=== PATIENT | female | born 1990 | race Caucasian/White ===

== ENCOUNTER 2017-05-18 20:11 | Emergency (ER) | payer OTHER, SELFPAY ==
[2017-05-18 20:17] VITALS: BP 130/84; PULSE 103; RESP 18; TEMP 36.9; O2SAT 99; BMI 65.5
[2017-05-18 20:41] LABS: Urine Pregnancy, HCG Qual. Negative (Negative)
--- NOTE | 2017-05-18 21:05 | HMH.EDGENADL ---
ED Disposition Clinical Impression: Epigastric pain Disposition: Home, Self-Care Condition on Discharge: Good Instructions: DI for Abdominal Pain-Adult Additional Instructions: Follow-up with your primary care provider this week. Additional instructions for ABDOMINAL PAIN: See your physician as soon as possible for further evaluation. Return immediately if worsening abdominal pain, vomiting, shortness of breath, fever, vomiting of blood or abdominal distention. Prescriptions: Omeprazole Magnesium [Prilosec Otc 20mg Tab] 20 mg PO DAILY #10 tab - Critical Care Critical Care Time: No Attestation: On 05/18/17, the high probability of a clinically significant, sudden or life threatening deterioration of the following system(s) required my full and direct attention, intervention and personal management. The time I documented below is in addition to time spent performing reported procedures but includes the following listed in this critical care notation. Medical Decision Making Vital Signs: 05/18/17 20:17 Temperature 98.5 F Temperature Source Oral Pulse Rate [Right Radial] 103 H Respiratory Rate 18 Blood Pressure [Right Arm] 130/84 Blood Pressure Mean [Right Arm] 99 Blood Pressure Source [Right Arm] Automatic Cuff Blood Pressure Position [Right Arm] Sitting 02 Sat by Pulse Oximetry 99 Oxygen Delivery Method Room Air - Lab Data Lab Results 05/18/17 20:35: Urine Color Yellow, Urine Appearance Clear, Urine pH 7.0, Ur Specific [place] 1.020, Urine Protein Negative, Urine Glucose (UA) Negative, Urine Ketones Negative, Urine Blood Negative, Urine Nitrate Negative, Urine Bilirubin Negative, Urine Urobilinogen 1.0, Ur Leukocyte Esterase Negative, Urine WBC 3-5, Ur Squamous Epith Cells 10-20 05/18/17 20:35: Urine HCG, Qual Negative 05/18/17 21:00: WBC 9.6, RBC 4.66, Hgb 12.6, Hct 38.5, MCV 82.5, MCH 27.1, MCHC 32.8, RDW 14.0, Plt Count 270, MPV 8.6, Neut % (Auto) 60.8, Lymph % (Auto) 33.0, [place] % (Auto) 5.2, Eos % (Auto) 0.7, Baso % (Auto) 0.2, Neut # (Auto) 5.8, Lymph # (Auto) 3.2, [place] # (Auto) 0.5, Eos # (Auto) 0.1, Baso # (Auto) 0.0 05/18/17 21:00: Sodium 146 H, Potassium 3.8, Chloride 108 H, Carbon Dioxide 30, Anion Gap 11.8, BUN 10, Creatinine 0.70, Estimated Creat Clear 103, Estimated GFR 103, Est GFR ( Amer) 124, Glucose 106, Calcium 8.6, Total Bilirubin 0.3, AST 15, ALT 22, Alkaline Phosphatase 120 H, Total Protein 7.5, Albumin 3.4, Globulin 4.1 H, Albumin/Globulin Ratio 0.8 L, Amylase 31, Lipase 199 Result diagrams: 05/18/17 21:00 05/18/17 21:00 - [place]ma Inquiry Pt receiving controlled substance: No Medical Decision Making Narrative: 9:48 PM: The patient appears very couple. She says the pain is the same, but declines anything for pain. I do not feel CT scan would be beneficial at this time. I think most likely this represents gallbladder disease or potentially peptic ulcer disease. Advised to follow-up with her primary care physician this week. I will empirically start her on Prilosec. I estimate there is LOW risk for ACUTE APPENDICITIS, BOWEL OBSTRUCTION, CHOLECYSTITIS, DIVERTICULITIS, INCARCERATED HERNIA, PANCREATITIS, PERFORATED BOWEL, BOWEL ISCHEMIA, CARDIAC ISCHEMIA, OR GONADAL TORSION thus I consider the discharge disposition reasonable. Also, there is no evidence or peritonitis, sepsis, or toxicity. General Adult HPI - General Chief complaint: Urogenital-Female Stated complaint: Stomach Pain Mode of Arrival: Ambulatory Limitations: No Limitations Description of Symptoms (Recalled from ER Triage Doc. by RN): Pt reports abdominal pain above belly button, and burning with urination. - History of Present Illness HPI narrative: She has had abdominal pain for 1 week. She describes intermittent abdominal pain in the midline above her umbilicus, supraumbilical area, that feels like she is punched in the stomach. Nothing seems to bring it on or relieve it. It usually last 2-3 joe
[2017-05-18 21:08] LABS: Microscopic, Urine URINE MICROSCOPIC (MICROSCOPIC)
[2017-05-18 21:10] LABS: Basophils % 0.2 % (0.1-2.0); Eosinophils # 0.1 K/mm3 (0.0-0.4); Eosinophils % 0.7 % (0.1-12.0); Hematocrit 38.5 % (37.0-47.0); Hemoglobin 12.6 g/dL (12.2-16.2); Lymphocytes # 3.2 K/mm3 (0.7-4.5); Mean Corpuscular HGB Conc 32.8 g/dL (31.8-35.4); Mean Corpuscular Hemoglobin 27.1 pg (27.0-31.2); Mean Corpuscular Volume 82.5 fl (81-99); Mean Platelet Volume 8.6 fl (7.4-10.4); Monocytes # 0.5 K/mm3 (0.1-1.0); Monocytes % 5.2 % (1.7-9.3); Neutrophils # 5.8 K/mm3 (1.8-7.8); Neutrophils % 60.8 % (37.0-80.0); Platelet Count 270 K/mm3 (142-424); Red Blood Count 4.66 M/mm3 (4.20-5.40); White Blood Count 9.6 K/mm3 (4.8-10.8)
[2017-05-18 21:11] LABS: Appearance,Urine CLEAR (Clear); Bilirubin,Urine Negative (Negative); Blood, Urine Negative (Negative); Color,Urine YELLOW (Yellow); Glucose,Urine (UA) Negative (Negative); Ketones,Urine Negative (Negative); Leukocyte Esterase,Urine Negative (Negative); Nitrate,Urine Negative (Negative); Protein,Urine Negative (Negative)
[2017-05-18 21:24] LABS: Alanine Aminotransferase 22 U/L (12-78); Albumin Level 3.4 gm/dL (3.4-5.0); Albumin/Globulin Ratio 0.8 (1.1-1.8); Alkaline Phosphatase 120 U/L (46-116); Amylase 31 U/L (25-125); Anion Gap 11.8 mEq/L (5-15); Aspartate Amino Transferase 15 U/L (15-37); Bilirubin,Total 0.3 mg/dL (0.2-1.0); Blood Urea Nitrogen 10 mg/dL (7-18); Calcium 8.6 mg/dL (8.5-10.1); Carbon Dioxide 30 mmol/L (21.0-32.0); Chloride 108 mmol/L (98-107); Creatinine Clearance Estimated 103 mL/min (0-300); Estimated Glomerular Filt Rate 103 ml/min (>60); GFR (African American) 124 ML/MIN (>60); Globulin 4.1 gm/dl (1.3-3.2); Glucose 106 mg/dL (74-106); Lipase 199 u/L (73-393); Potassium 3.8 mmoL/L (3.5-5.1); Sodium 146 mmol/L (136-145); Total Protein,Serum 7.5 gm/dL (6.4-8.2)
== END 2017-05-18 21:52 | disposition home or self-care (01) ==
PROVIDERS: Emergency Provider Emergency Medicine; Family Provider Internal Medicine Adolescent Medicine
DX: R10.13 Epigastric pain (principal); Z79.899 Other long term (current) drug therapy
CPT/HCPCS: 36415; 80053; 81001; 81025; 82150; 83690; 85025; 99282

== ENCOUNTER → 2017-07-25 09:19 | Outpatient (CLI) | payer BC, OTHER, SELFPAY ==
[2017-07-25 10:14] LABS: Basophils % 0.2 % (0.1-2.0); Eosinophils # 0.1 K/mm3 (0.0-0.4); Eosinophils % 0.9 % (0.1-12.0); Hematocrit 41.2 % (37.0-47.0); Hemoglobin 13.5 g/dL (12.2-16.2); Lymphocytes # 2.2 K/mm3 (0.7-4.5); Lymphocytes % 30.8 K/mm3 (10-50); Mean Corpuscular HGB Conc 32.8 g/dL (31.8-35.4); Mean Corpuscular Hemoglobin 27.8 pg (27.0-31.2); Mean Corpuscular Volume 84.9 fl (81-99); Mean Platelet Volume 9.2 fl (7.4-10.4); Monocytes # 0.3 K/mm3 (0.1-1.0); Monocytes % 4.9 % (1.7-9.3); Neutrophils # 4.5 K/mm3 (1.8-7.8); Neutrophils % 63.2 % (37.0-80.0); Platelet Count 200 K/mm3 (142-424); Red Blood Count 4.85 M/mm3 (4.20-5.40); Red Cell Distribution Width 14.3 % (11.5-17.5)
[2017-07-25 10:16] LABS: Hemoglobin A1C 4.8 % (0.0-7.0)
[2017-07-25 10:19] LABS: Alanine Aminotransferase 23 U/L (12-78); Albumin Level 3.4 gm/dL (3.4-5.0); Albumin/Globulin Ratio 0.9 (1.1-1.8); Alkaline Phosphatase 107 U/L (46-116); Anion Gap 13.6 mEq/L (5-15); Aspartate Amino Transferase 18 U/L (15-37); Bilirubin,Total 0.5 mg/dL (0.2-1.0); Blood Urea Nitrogen 14 mg/dL (7-18); Carbon Dioxide 25 mmol/L (21.0-32.0); Chloride 107 mmol/L (98-107); Chol/HDL Ratio 2.8 (1-3.5); Cholesterol 137 mg/dL (140-200); Creatinine,Serum 0.65 mg/dL (0.55-1.02); Estimated Glomerular Filt Rate 112 ml/min (>60); Free T4 (Free Thyroxine) 0.98 ng/dl (0.76-1.46); GFR (African American) 136 ML/MIN (>60); Glucose 99 mg/dL (74-106); HDL Cholesterol 49 mg/dL (29-89); LDL Cholesterol 76 mg/dL (0-130); Potassium 3.6 mmoL/L (3.5-5.1); Sodium 142 mmol/L (136-145); Total Protein,Serum 7.4 gm/dL (6.4-8.2); Triglycerides 58 mg/dL (30-200); VLDL Cholesterol 12 mg/dL (0-40)
[2017-07-25 10:39] LABS: Thyroid Stimulating Hormone 2.31 uIU/ml (0.358-3.740)
[2017-07-26 19:01] LABS: Vitamin D 25 Hydroxy 24.2 ng/mL (30.0-100.0)
== END ==
PROVIDERS: Nurse Practitioner Family; Visit Provider Emergency Medicine
DX: R53.83 Other fatigue (principal); R00.2 Palpitations; Z79.899 Other long term (current) drug therapy; R79.9 Abnormal finding of blood chemistry, unspecified
CPT/HCPCS: 36415; 80053; 80061; 82652; 83036; 84439; 84443; 85025

== ENCOUNTER → 2017-08-04 11:52 | Outpatient (CLI) | payer BC, OTHER, SELFPAY | PROVIDERS: PCP Emergency Medicine; Visit Provider Internal Medicine | DX: R00.2 Palpitations (principal); R07.9 Chest pain, unspecified; R06.00 Dyspnea, unspecified; R94.31 Abnormal electrocardiogram [ECG] [EKG]; Z82.49 Family history of ischemic heart disease and other diseases of the circulatory system | CPT/HCPCS: 93225 ==

== ENCOUNTER → 2017-09-12 11:21 | Outpatient (CLI) | payer BC, OTHER, SELFPAY ==
[2017-09-12 12:47] LABS: HCG Qualitative, Serum Negative (Negative)
== END ==
PROVIDERS: Visit Provider Nurse Practitioner Obstetrics & Gynecology
DX: Z32.00 Encounter for pregnancy test, result unknown (principal)
CPT/HCPCS: 36415; 84703

== ENCOUNTER → 2018-03-03 10:49 | Outpatient (CLI) | payer BC, OTHER, SELFPAY ==
--- NOTE | 2018-03-03 10:52 | US_ITS ---
US OB <= 14 weeks fetus HISTORY: ITS.REASON: DATES-Pt will be 12wks 3 days-[id number] PA'D ORDERING PHYSICIAN: Andres Jeff MD PATIENT AGE: 27 years COMPARISON: None FINDINGS: There is a single live intrauterine gestation present with an average ultrasound age of 13 weeks and 3 days. heart and body motion noted. BPD 30 weeks 4 days, HC 30 weeks 3 days, abdominal circumference 13 weeks 2 days, FL 13 weeks 1 day. [place]-rump length is 13 weeks 1 day. heart nodule present at 1 51 bpm. Placenta is forming posteriorly. No obvious anomalies. The HC/abdominal circumference is normal at 1.21 IMPRESSION: Live intrauterine gestation with an average ultrasound age of 13 weeks 3 days. Estimated due date by ultrasound is 09/05/2018. No obvious anomalies. However, this does not constitute a anatomy exam. The back consent the ninth of
[2018-03-03 11:52] LABS: Basophils % 0.1 % (0.1-2.0); Eosinophils % 0.3 % (0.1-12.0); Hematocrit 34.8 % (37.0-47.0); Hemoglobin 11.3 g/dL (12.2-16.2); Lymphocytes # 1.6 K/mm3 (0.7-4.5); Lymphocytes % 22.1 % (10-50); Mean Corpuscular HGB Conc 32.5 g/dL (31.8-35.4); Mean Corpuscular Hemoglobin 27.7 pg (27.0-31.2); Mean Corpuscular Volume 85.3 fl (81-99); Mean Platelet Volume 8.6 fl (7.4-10.4); Monocytes # 0.3 K/mm3 (0.1-1.0); Monocytes % 4.7 % (1.7-9.3); Neutrophils # 5.2 K/mm3 (1.8-7.8); Neutrophils % 72.8 % (37.0-80.0); Platelet Count 189 K/mm3 (142-424); Red Blood Count 4.08 M/mm3 (4.20-5.40); Red Cell Distribution Width 14.8 % (11.5-17.5); White Blood Count 7.2 K/mm3 (4.8-10.8)
[2018-03-04 08:29] LABS: HIV Screen 4th Generation wRfx Non Reactive (Non Reactive)
[2018-03-04 09:19] LABS: Hepatitis B Surface Antigen Negative (Negative); Hepatitis C Antibody <0.1 s/co ratio (0.0-0.9); Rapid Plasma Reagin Ab Titer Non Reactive (NonRea<1:1); Rubella Antibodies, IgG 0.92 index (Immune >0.99)
== END ==
PROVIDERS: PCP Emergency Medicine; Visit Provider Nurse Practitioner Obstetrics & Gynecology
DX: O26.841 Uterine size-date discrepancy, first trimester (principal)
CPT/HCPCS: 36415; 76801; 85025; 86592; 86703; 86762; 86850; 87340; 87380; G0432

== ENCOUNTER → 2018-03-03 11:31 | Outpatient (CLI) | payer BC, OTHER, SELFPAY | PROVIDERS: Visit Provider Nurse Practitioner Obstetrics & Gynecology | DX: Z34.90 Encounter for supervision of normal pregnancy, unspecified, unspecified trimester (principal) | CPT/HCPCS: 36415; 85025; 86592; 86703; 86762; 86850; 87340; 87380; G0432 ==

== ENCOUNTER → 2018-04-27 13:03 | Outpatient (CLI) | payer BC, OTHER, SELFPAY ==
--- NOTE | 2018-04-27 13:08 | US_ITS ---
US OB /maternal detail: INDICATION: ITS.REASON: US OB Complete ORDERING PHYSICIAN: Andres Jeff MD PATIENT AGE: 27 years TECHNIQUE: ultrasound transabdominal scanning. COMPARISON: No previous relevant studies. FINDINGS: Single viable intrauterine gestation. Breech position. Placenta: Anterior placenta grade 1. There is average amount fluid. The cervix appears satisfactory. Closed and measuring 4 cm in length. Complete survey performed and was unremarkable on the submitted images as in PACS. No discrete anomalies identified on survey imaging by technologist. Active fetus. Three-vessel cord with satisfactory umbilical cord insertion. 4- chamber heart noted. Survey of brain & ventricles unremarkable. Face and neck survey unremarkable. Diaphragm and chest views unremarkable. Abdomen: Both kidneys noted and unremarkable. Stomach noted and satisfactory. Spine: Survey of the spine satisfactory with no anomalies identified nor imaged. Both arms and legs noted. Amniotic Fluid: Adequate. Maternal adnexa: No significant findings. Measurements: Average ultrasound age 21w3d. Gestational Age 21w2d. Estimated due date by ultrasound age 0509/04/2018. Estimated weight 415 grams. BPD = 21w3d OFD = 22w1d HC = 21w1d AC = 22w1d FL = 20w4d Growth Percentile= 46% Heart Rate = 152 Cerebellum = 20w1d Humerus = 22w4d HC/AC is 1.10 (1.06-1.25). CI is 75% (70-86%). FL/BPD is 66%. FL/AC is 20 (20-24%). IMPRESSION: There is a single live fetus which is in breech presentation. Average ultrasound age is 21 weeks and 3 days. All parameters correlate with no obvious anomalies. Anterior grade 1 placenta. Please see above for detailed description.
== END ==
PROVIDERS: PCP Emergency Medicine; Visit Provider Nurse Practitioner Obstetrics & Gynecology
DX: Z36.0 Encounter for antenatal screening for chromosomal anomalies (principal)
CPT/HCPCS: 76811

== ENCOUNTER → 2018-06-09 08:44 | Outpatient (CLI) | payer BC, OTHER, SELFPAY ==
[2018-06-09 09:42] LABS: Glucose,Fasting 88 mg/dL (60-105)
[2018-06-09 10:57] LABS: Glucose 1 Hour 169 mg/dL (74-106)
== END ==
PROVIDERS: Visit Provider Nurse Practitioner Obstetrics & Gynecology
DX: Z34.90 Encounter for supervision of normal pregnancy, unspecified, unspecified trimester (principal)
CPT/HCPCS: 36415; 82951

== ENCOUNTER → 2018-06-17 09:35 | Outpatient (CLI) | payer BC, OTHER, SELFPAY ==
[2018-06-17 10:14] LABS: Glucose,Fasting 95 mg/dL (60-105)
[2018-06-17 11:36] LABS: Glucose 1 Hour 177 mg/dL (74-106)
== END ==
PROVIDERS: Visit Provider Nurse Practitioner Obstetrics & Gynecology
DX: Z34.90 Encounter for supervision of normal pregnancy, unspecified, unspecified trimester (principal)
CPT/HCPCS: 36415; 82951

== ENCOUNTER → 2018-08-03 10:00 | Outpatient (CLI) | payer BC, OTHER, SELFPAY ==
--- NOTE | 2018-08-03 10:01 | US_ITS ---
US OB BPP w/Fet-Mat S/D: Indication: Large for gestational age ITS.REASON: US OB- BPP Growth LGA ORDERING PHYSICIAN: Andres Jeff MD PATIENT AGE: 27 years FINDINGS: The following parameters are obtained: Average ultrasound age is 35w5d. Estimated due date by ultrasound is 09/02/2018. Estimated weight is 2634 BPD: 36w2d OFD: 37w4d HC: 36w0d AC: 35w0d FL: 35w2d heart rate: 156 bpm. HC/AC: 1.03 (0.93-1.11) Cephalic index: 80% (70-86%) FL/BPD: 77% (71-87%) FL/AC: 22% (20-24%) Amniotic fluid index: Normal at 11 cm Qualitative AFV: 2 breathing movements: 2 Gross body movements: 2 Tone: 2 Biophysical profile score: 8/8 Doppler evaluation of the umbilical artery: SD ratio: 2.6 Resistive index: 0.52 No obvious anomalies evident. Placenta: ANT GR2 Cervix: Appears closed and measures 3 cm IMPRESSION: There is a single live fetus which is in cephalic presentation with an average ultrasound age of 35 weeks and 5 days. Estimated weight is 2634 g which is 47th percentile. Biophysical profile dated 8 with normal amniotic fluid volume index Umbilical artery Doppler evaluation is unremarkable.
== END ==
PROVIDERS: PCP Emergency Medicine; Visit Provider Nurse Practitioner Obstetrics & Gynecology
DX: O36.60X0 Maternal care for excessive fetal growth, unspecified trimester, not applicable or unspecified (principal)
CPT/HCPCS: 76811; 76819; 76820

== ENCOUNTER → 2018-08-12 16:53 | Outpatient (CLI) | payer BC, OTHER, SELFPAY | PROVIDERS: Visit Provider Nurse Practitioner Obstetrics & Gynecology | DX: Z34.90 Encounter for supervision of normal pregnancy, unspecified, unspecified trimester (principal) | CPT/HCPCS: 86403 ==

== ENCOUNTER 2018-08-21 11:23 | Outpatient (CLI) | payer BC, OTHER, SELFPAY ==
[2018-08-21 11:54] VITALS: BP 125/72; PULSE 91; RESP 18; TEMP 36.9; O2SAT 97; BMI 59.7
--- NOTE | 2018-08-21 12:49 | P.PN_ITS ---
Internal Medicine - PN: Subj *Date: 08/21/18 *Time: 12:48 Interval history: She is a 27-year-old 4 para 2 aborta 1 at 37 weeks gestational age. She had decreased movement today. She came into labor and delivery to be checked. Exam Vital signs and Labs for Last 24 Hours: Temp Pulse Resp BP Pulse Ox 98.4 F 91 H 18 125/72 97 08/21/18 11:54 08/21/18 11:54 08/21/18 11:54 08/21/18 11:54 08/21/18 11:54 I & O for Last 24 hours: Intake & Output 08/19/18 08/20/18 08/21/18 08/22/18 11:59 11:59 11:59 11:59 Weight 370 lb - Constitutional no acute distress Assessment and Plan (1) Decreased movement affecting management of mother, antepartum Current visit: Yes Status: Acute Category: Medical Code(s): O36.8190 - Decreased movements, unspecified trimester, not applicable or unspecified - Assessment and plan all Dx Assessment and Plan for all problems:: She had decreased movement. We have given her a liter of fluid. The nons tress test is reactive. She is feeling the baby move now. We will send her home and she will follow-up with me again next week.
== END 2018-08-21 12:50 | disposition home or self-care (01) ==
LOC: OBOUT 11:25 → OB 11:28
PROVIDERS: PCP Emergency Medicine; Visit Provider Nurse Practitioner Obstetrics & Gynecology
DX: O36.8130 Decreased fetal movements, third trimester, not applicable or unspecified (principal); Z3A.37 37 weeks gestation of pregnancy
CPT/HCPCS: 59025; 96360

== ENCOUNTER 2018-09-07 01:41 | Inpatient (IN) ==
[2018-09-07 05:41] LABS: Appearance,Urine CLEAR (Clear); Bilirubin,Urine Negative (Negative); Blood, Urine Negative (Negative); Color,Urine YELLOW (Yellow); Glucose,Urine (UA) Negative (Negative); Ketones,Urine Negative (Negative); Leukocyte Esterase,Urine 1+ (Negative); Microscopic, Urine URINE MICROSCOPIC (MICROSCOPIC); Protein,Urine Negative (Negative); Specific Gravity, Urine 1.025 (1.005-1.030)
[2018-09-07 05:43] LABS: Squamous Epithelial Cell,Urine 20-50 #/hpf (0-5)
[2018-09-07 05:48] LABS: Amphetamine/Metha Screen,Urine Negative ng/mL (<1000); Barbiturates Screen,Urine Negative ng/mL (<200); Benzodiazepines Screen,Urine Negative ng/mL (<200); Cannabinoid Screen,Urine Negative ng/mL (<50); Cocaine Screen,Urine Negative ng/mL (<300); Methadone Screen,Urine Negative ng/mL (<300); Opiate Screen,Urine Negative ng/mL (<300); Phencyclidine Screen,Urine Negative ng/mL (<25)
[2018-09-07 06:33] LABS: Basophils % 0.1 % (0.1-2.0); Eosinophils # 0.1 K/mm3 (0.0-0.4); Eosinophils % 0.5 % (0.1-12.0); Hematocrit 35.1 % (37.0-47.0); Hemoglobin 12.2 g/dL (12.2-16.2); Lymphocytes # 2.4 K/mm3 (0.7-4.5); Lymphocytes % 22.4 % (10-50); Mean Corpuscular HGB Conc 34.9 g/dL (31.8-35.4); Mean Corpuscular Hemoglobin 28.6 pg (27.0-31.2); Mean Platelet Volume 9.1 fl (7.4-10.4); Monocytes # 0.5 K/mm3 (0.1-1.0); Monocytes % 4.3 % (1.7-9.3); Neutrophils # 7.8 K/mm3 (1.8-7.8); Neutrophils % 72.6 % (37.0-80.0); Platelet Count 199 K/mm3 (142-424); Red Blood Count 4.28 M/mm3 (4.20-5.40); Red Cell Distribution Width 15.5 % (11.5-17.5); White Blood Count 10.7 K/mm3 (4.8-10.8)
--- NOTE | 2018-09-07 07:25 | Progress Note ---
Labor Note - Subjective: Date: 09/07/18 Time: 07:24 irregular contractions - Objective: NST:: Reactive Contractions:: every 2-3 minutes Cervical Dilation:: 2-3 Effacement:: 75% Station: -2 Membranes: artificially ruptured Comment:: She had clear fluid. - Fetus: Monitoring?: Yes monitoring type:: External - Assessment: Labor progressing?: Yes Cephalopelvic disproportion?: No Patient Problems: All Active Problems (Updated 09/07/18 @ 07:24 by Andres Jeff MD) Sinusitis (Acute) Decreased movement affecting management of mother, antepartum (Acute) Post-term , 40-42 weeks of gestation (Acute) (Acute) Epigastric pain (Acute) Reactive airway disease (Acute) Sacral pain (Acute) First trimester (Acute) Hypokalemia (Acute) (Acute) Foreign body in foot, left (Acute) Heart palpitations (Chronic) - Plan: Anesthesia for epidural?: No Continue to labor down?: Yes Plan for ?: No Continue to monitor?: Yes Start pushing?: No Comment:: She is postdates we will go ahead and deliver her.
--- NOTE | 2018-09-07 09:44 | Progress Note ---
Labor Note - Subjective: Date: 09/07/18 Time: 09:43 regular contraction - Objective: NST:: Reactive Contractions:: every 2-3 minutes Cervical Dilation:: 5 Effacement:: 90% Station: -1 Membranes: artificially ruptured - Fetus: Monitoring?: Yes monitoring type:: Internal - Assessment: Labor progressing?: Yes Patient Problems: All Active Problems (Updated 09/07/18 @ 07:24 by Andres Jeff MD) Post-term , 40-42 weeks of gestation (Acute) Sinusitis (Acute) Decreased movement affecting management of mother, antepartum (Acute) (Acute) Epigastric pain (Acute) Reactive airway disease (Acute) Sacral pain (Acute) First trimester (Acute) Hypokalemia (Acute) (Acute) Foreign body in foot, left (Acute) Heart palpitations (Chronic) - Plan: Anesthesia for epidural?: Yes Continue to labor down?: Yes Plan for ?: No Continue to monitor?: Yes Start pushing?: No Comment:: She is progressing well. She is going to have an epidural. She is at least 5 cm.
--- NOTE | 2018-09-07 10:33 | Progress Note ---
[facility] Anesthesia Checklist - Patient Identification Patient Identification: Arm Band, Verbal (Name & ) - Structural Data Admitted From: Home Planned Operative Procedure/s: Labor epidural Consent for Planned Operative Procedure(s) Verified: Yes Verified Documents: Surgical Consent, History and Physical - Chart Verification Results Verified: CBC - Additional verifications Patient : Yes Anesthesia Reactions: No - Airway Assessment C-Spine Mobility Assessed: Yes TMJ Mobility Assessed: Yes Dentition: Good Dentition - Neurological Assessment Level of Consciousness: Awake Hx Seizures: No Numbness or tingling in extremities: No - Anesthesia Plan Anesthesia Risk discussed: Yes Anesthesia Plan: Verified ASA Class: IV Anesthesia Type: Epidural [facility] History I have reviewed the patient's past medical history: Yes Medical History: Reports:: Asthma, Palpitations Denies:: Cancer, Diabetes Mellitus Type 1, Diabetes Mellitus Type 2, Hyperlipidemia, Hypertension, Migraine, MRSA, Seizures *Have you ever received a pneumonia vaccine?: No *Have you received a flu vaccine this season?: No Comment:: Super morbid obesity Other Surgeries: Yes: No Previous Surgery, Dilation and Curettage. No: C- section Amputation: No Fractures: No - *Social History Educational Level: Completed High School Smoking Status: Never smoker Alcohol Intake: never Alcohol Intake Frequency:: other Substance Use Type: denies use *Occupational Status:: unemployed Housing: house Household Members: spouse, children *Travel in the last 8 weeks: None - Psychiatric History Expresses thoughts of harming self/others: None Suicide Plan Description: No Plan Family Hx:: Diabetes, Coronary Artery Disease, Heart Attack, Stroke
--- NOTE | 2018-09-07 13:01 | Procedure Note ---
- Delivery Note Delivery Date:: 09/07/18 Delivery Time:: 12:42 Anesthesia Type: Epidural Was labor medically induced?: Yes Induction method: per pitocin protocol Gestational age (weeks): 40 Infant delivered prior to 39 weeks?: No Justification for early elective delivery:: Post term Gender: Male at 1 minute: 9 at 5 minutes: 9 AF:: Clear fluid Delivery Procedure:: She is a 27-year-old 4 para 2 aborta 1 who was 40+2 weeks gestational age. The result of this she was brought in for induction of labor postdates. She was started on IV oxytocin and had her membranes ruptured. Under labor epidural she progressed to full dilation and delivered spontaneously a liveborn male child at 12:42 PM in the afternoon of September 07, 2018. On deliver the head the anterior shoulder rapidly delivered followed by the rest the infant's body atraumatically. The baby cried spontaneously. We allowed the cord to continue to pulsate for proximally 1 minute. The cord was then doubly clamped and cut. The was then placed on the mother's abdomen for further care. The nurses assigned Apgars of 9 at 1 minute and 9 at 5 minutes. We then obtained cord blood as well as cord pH. pH was 7.30. Using gentle traction on the cord and countertraction on the fundus I was able to easily deliver the placenta intact. He had a normal three-vessel cord. There were no perineal or vaginal lacerations. She has a positive blood, she is rubella nonimmune. She was group B streptococcus negative. She plans to bottlefeed. Her travel coordinator is Dr. Bear. Estimated blood loss was approximately 200 cc. Placental Delivery Description: Spontaneous
[2018-09-08 07:20] LABS: Hemoglobin 11.3 g/dL (12.2-16.2)
--- NOTE | 2018-09-08 09:04 | Progress Note ---
Internal Medicine - PN: Subj *Date: 09/08/18 *Time: 09:03 Interval history: She continues to do well. She is eating and drinking and ambulating. She is bottlefeeding. Her lochia is normal. Exam Vital signs and Labs for Last 24 Hours: Temp Pulse Resp BP Pulse Ox 98.2 F 97 H 18 147/79 H 98 09/07/18 07:45 09/07/18 07:45 09/07/18 07:45 09/07/18 07:45 09/07/18 07:45 Laboratory Results - last 24 hr 09/07/18 12:51: Cord ABG pH 7.30 L 09/08/18 06:35: Hgb 11.3 L, Hct 33.0 L I & O for Last 24 hours: Intake & Output 09/05/18 09/06/18 09/07/18 09/08/18 11:59 11:59 11:59 11:59 Weight 377 lb Microbiology Reports for the Last 24 Hours: Microbiology 09/07/18 05:35 Urine,Clean Catch Urine Culture - Final Multiple organisms, suggests contamination. - Constitutional no acute distress Assessment and Plan (1) Normal delivery at term Current visit: Yes Status: Acute Category: Medical Code(s): O80 - Encounter for full-term uncomplicated delivery (2) Post-term , 40-42 weeks of gestation Current visit: Yes Status: Acute Category: Medical Code(s): O48.0 - Post- term - Assessment and plan all Dx Assessment and Plan for all problems:: She continues to do well. We will plan to send her home tomorrow.
[2018-09-08 21:23] VITALS: BP 133/66
--- NOTE | 2018-09-09 08:41 | Discharge Summary ---
General - General Admission date:: 09/07/18 Discharge date: 09/09/18 HPI HPI: She is a 27-year-old 4 now para 3 aborta 1 who was 40+ weeks gestational age. She was postdates and as a result of that we elected to induce her labor at term. Hospital Course Hospital Course: She was started on IV oxytocin had her membranes ruptured. She progressed to full dilation and delivered spontaneously a liveborn male child at 12:42 PM in the afternoon of September 07, 2018. The baby had Apgars of 9 at 1 minute and 9 at 5 minutes. pH was 7.3 os. She had no perineal or vaginal lacerations. She is bottlefeeding. She has done well and has remained afebrile with her hospitalization. She is eating and drinking and ambulating. She has A+ blood, she is rubella nonimmune and will receive MMR. She was group B streptococcus negative. She is discharged home to follow-up with me in approximately 2 weeks time. She will continue with her vitamins and iron. She does not have a partner at this point in time so she is not sexually active. She does not want control at this point time. Rhogam Administration: Not Indicated Objective Vital signs: Temp Pulse Resp BP Pulse Ox 98.6 F 77 18 133/66 97 09/08/18 20:26 09/08/18 20:26 09/08/18 20:26 09/08/18 20:26 09/08/18 20:26 no acute distress, morbidly obese DS: Diagnosis - Discharge Diagnosis (1) Normal delivery at term Status: Acute (2) Post-term , 40-42 weeks of gestation Status: Acute Discharge Plan - Patient Discharge Instructions ACTIVITY: No heavy lifting DIET: continue same diet - Follow up Plan Disposition: Home, Self-Fdc Medications: Home Medications Medication Instructions Recorded Confirmed Type Vit37/Iron/Folic Acid 1 each PO DAILY 01/10/18 09/07/18 History [Prenata Chewable Tablet] Ferrous Sulfate 325 mg PO DAILY 09/07/18 09/07/18 History Prescriptions/Medication Reconciliation: Continued Vit37/Iron/Folic Acid [Prenata Chewable Tablet] 1 each PO DAILY Ferrous Sulfate 325 mg PO DAILY
== END 2018-09-09 11:18 | disposition home or self-care (01) | DRG 807 ==
LOC: OB 05:26
PROVIDERS: ADMIT Nurse Practitioner Obstetrics & Gynecology; ATTEND Nurse Practitioner Obstetrics & Gynecology
CPT/HCPCS: C1758

== ENCOUNTER 2020-03-31 12:55 | Emergency (ER) | payer BC, OTHER, SELFPAY ==
[2020-03-31 13:10] VITALS: BP 142/95; PULSE 83; RESP 19; TEMP 36.8; O2SAT 99; BMI 48.7
[2020-03-31 13:42] LABS: UTC Influenza A Antigen Negative (Negative); UTC Influenza B Antigen Negative (Negative)
--- NOTE | 2020-03-31 13:43 | HMH.EDUTC ---
[facility] Disposition Clinical Impression: Viral syndrome, Exposure to COVID-19 virus Disposition: Home, Self-Care Condition on Discharge: Good Instructions: Preventing the Spread of Coronavirus Discharge Instructions Additional Instructions: Drink plenty of fluids. Take tylenol for pain or fever. Return if you begin to have difficulty breathing. Follow up with your regular doctor. GO TO THE ER FOR ANY WORSENING SYMPTOMS Prescriptions: Ondansetron [Zofran 4mg ODT] 4 mg PO Q8HP PRN #12 tab.rapdis PRN Reason: Nausea Transmission Status: Received by [facility] # Benzonatate [Tessalon Perle 100mg Cap] 100 mg PO TIDP PRN #30 cap PRN Reason: Cough Transmission Status: Received by [facility] # Azithromycin [Z-Danielito 250mg Tab*] 250 mg PO UD DOSE PK #6 tab Transmission Status: Received by [facility] # Referrals: Joe Wade MD [Primary Care Provider] - Forms: Work/School Release Time of Disposition: 13:46 Medical Decision Making - Medical Records Medical records reviewed: No: I reviewed the patient's medical records. - [place] Inquiry Pt receiving controlled substance: No Vital Signs: 03/31/20 13:10 03/31/20 13:48 Temperature 98.2 F 98.2 F Temperature Source Oral Pulse Rate 83 Pulse Rate [Right Brachial] 83 Respiratory Rate 19 19 Blood Pressure 142/95 H Blood Pressure [Right Arm] 142/95 H Blood Pressure Mean [Right Arm] 110 Blood Pressure Source [Right Arm] Automatic Cuff Blood Pressure Position [Right Arm] Sitting 02 Sat by Pulse Oximetry 99 Oxygen Delivery Method Room Air - Lab Data Lab Results 03/31/20 13:07: Influenza Type A Ag Negative, Influenza Type B Ag Negative Orders (Tests/Meds): ORDERS Category Date Time Status Covid-19 Nasal PCR Sendout [facility] 03/31/20 13:07 Ordered [facility] HPI - General Stated complaint: cough,SOA,headache Time Seen by Provider: 03/31/20 13:44 Mode of Arrival: Ambulatory Limitations: No Limitations Description of Symptoms (Recalled from Triage Doc. by RN): PATIENT C/O BODY ACHES, CHILLS, FEVER, AND SOA X 2 DAYS HEENT Symptoms (Recalled from RN notes): No Resp Symptoms (Recalled from RN notes): Yes Skin Symptoms (Recalled from RN notes): No MS Symptoms (Recalled from RN notes): No Functional Status (Recalled from RN notes): WNL - History of Present Illness Provider Complaint: She c/o 2 days of having cough, fever, body aches and sinus congestion. - Related Data Home Medications Medication Instructions Recorded Confirmed Vit37/Iron/Folic Acid 1 each PO DAILY 01/10/18 01/14/19 [Prenata Chewable Tablet] Ferrous Sulfate 325 mg PO DAILY 09/07/18 01/14/19 Previous Rx's Medication Instructions Recorded medroxyprogesterone 150 mg/mL 150 mg IM [id number] #1 ml 01/14/19 intramuscular suspension Azithromycin [Z-Danielito 250mg Tab*] 250 mg PO UD DOSE PK #6 tab 03/31/20 Benzonatate [Tessalon Perle 100mg 100 mg PO TIDP PRN #30 cap 03/31/20 Cap] Ondansetron [Zofran 4mg ODT] 4 mg PO Q8HP PRN #12 tab.rapdis 03/31/20 Allergies Allergy/AdvReac Type Severity Reaction Status Date / Time latex [LATEX] Allergy Mild I-ITCHING Verified 01/14/19 09:16 cinnamon [CINNAMON] Allergy Unknown Unknown Verified 01/14/19 09:16 allergy reaction methylprednisolone Allergy Unknown Unknown Verified 01/14/19 09:16 [METHYLPREDNISOLONE] allergy reaction onion [ONION] Allergy Unknown Unknown Verified 01/14/19 09:16 allergy reaction peanut Allergy Anaphylaxis Verified 01/14/19 09:16 shellfish derived Allergy Anaphylaxis Verified 01/14/19 09:16 - Worker's Comp Is this a Worker's Comp case?: No [facility] History - Hepatitis A Screen Drug use history?: No High risk sexual behaviors?: No History of sexually transmitted infection?: No Currently employed?: No Childcare worker?: No Do you have indoor plumbing?: Yes Do you have electricity?:
[2020-03-31 13:48] VITALS: BP 142/95; PULSE 83; RESP 19; TEMP 36.8; O2SAT 99
[2020-04-02 09:08] LABS: Covid-19 Nasal PCR Sendout UK Not Detected
== END 2020-03-31 13:50 | disposition home or self-care (01) ==
PROVIDERS: Emergency Provider Nurse Practitioner Family; PCP Emergency Medicine
DX: Z20.828 Contact with and (suspected) exposure to other viral communicable diseases (principal); B34.9 Viral infection, unspecified; J45.909 Unspecified asthma, uncomplicated; Z91.040 Latex allergy status
CPT/HCPCS: 87804; 99201; U0003

== ENCOUNTER 2020-12-03 19:17 | Emergency (ER) | payer BC, OTHER, SELFPAY ==
--- NOTE | 2020-12-03 19:49 | HMH.EDUTC ---
[facility] [place] Clinical Impression: Exposure to COVID-19 virus, Strep throat Disposition: Home, Self-Care Condition on Discharge: Good Instructions: Strep Throat, DI for Strep Throat Additional Instructions: Drink plenty of fluids. Take tylenol or ibuprofen for pain or fever. Take the medications as directed. Follow up with your regular doctor. GO TO THE ER FOR ANY WORSENING SYMPTOMS Throw your tooth brush away and get a new one. Quarantine until you know the results of your covid-19 test. If it is positive, the health department should call you and give you further instructions about your length of Quarantine and other thing. Prescriptions: Brompheniramine/Pseudoephed/Dm [Bromfed Dm Cough Syrup] 5 ml PO Q6HP PRN #240 syrup PRN Reason: Cough Transmission Status: Received by [facility] #[id number] Amoxicillin/Potassium Clav [Augmentin 875-125 Tablet] 1 tab PO Q12H 10 Days #20 tab Transmission Status: Received by [facility] #[id number] Referrals: Joe Wade MD [Primary Care Provider] - Time of Disposition: 20:05 Medical Decision Making - Medical Records Medical records reviewed: No: I reviewed the patient's medical records. - Chema Inquiry Pt receiving controlled substance: No Vital Signs: 12/03/20 19:51 12/03/20 20:27 Temperature 98.2 F 98.6 F Temperature Source Oral Pulse Rate 96 H Pulse Rate [Left] 102 H Respiratory Rate 20 20 Blood Pressure 0/0 L Blood Pressure [Right Arm] 158/99 H Blood Pressure Mean [Right Arm] 118 02 Sat by Pulse Oximetry 97 - Lab Data Lab results reviewed: Yes: I reviewed the patient's lab results. Lab Results 12/03/20 19:55: Strep Scn Rapid Clinic Positive A Orders (Tests/Meds): ORDERS Category Date Time Status Covid-19 Nasal PCR ([facility]) Routine Lab 12/03/20 19:48 Received [facility] [place] - General Stated complaint: sore throat,cough.runny nose Time Seen by Provider: 12/03/20 19:50 - History of Present Illness Provider Complaint: She c/o feeling bad, cough, chilling and body aches since yesterday. She also has a sore throat. She was exposed to covid-19 last week. - Related Data Home Medications Medication Instructions Recorded Confirmed Vit37/Iron/Folic Acid 1 each PO DAILY 01/10/18 06/14/20 [Prenata Chewable Tablet] Ferrous Sulfate 325 mg PO DAILY 09/07/18 06/14/20 Previous Rx's Medication Instructions Recorded medroxyprogesterone 150 mg/mL 150 mg IM [id number] #1 ml 01/14/19 intramuscular suspension Azithromycin [Z-Danielito 250mg Tab*] 250 mg PO UD DOSE PK #6 tab 03/31/20 Benzonatate [Tessalon Perle 100mg 100 mg PO TIDP PRN #30 cap 03/31/20 Cap] Ondansetron [Zofran 4mg ODT] 4 mg PO Q8HP PRN #12 tab.rapdis 03/31/20 norgestimate 0.25 mg-ethinyl 1 tab PO DAILY #28 tab 10/11/20 estradiol 35 mcg tablet Amoxicillin/Potassium Clav 1 tab PO Q12H 10 Days #20 tab 12/03/20 [Augmentin 875-125 Tablet] Brompheniramine/Pseudoephed/Dm 5 ml PO Q6HP PRN #240 syrup 12/03/20 [Bromfed Dm Cough Syrup] Allergies Allergy/AdvReac Type Severity Reaction Status Date / Time latex [LATEX] Allergy Mild I-ITCHING Verified 06/14/20 13:59 cinnamon [CINNAMON] Allergy Unknown Unknown Verified 06/14/20 13:59 allergy reaction methylprednisolone Allergy Unknown Unknown Verified 06/14/20 13:59 [METHYLPREDNISOLONE] allergy reaction onion [ONION] Allergy Unknown Unknown Verified 06/14/20 13:59 allergy reaction peanut Allergy Anaphylaxis Verified 06/14/20 13:59 shellfish derived Allergy Anaphylaxis Verified 06/14/20 13:59 [facility] History - Hepatitis A Screen Attestation statement:: This patient has been screened for Hepatitis A risk factors. I have reviewed the patient's past medical history: Yes Medical History: Reports:: Asthma, Palpitations Denies:: Cancer, Diabetes Mellitus Type 1, Diabetes Mellitus Type 2, Hyperlipidemia, Hypertension, Migraine, MRSA, Seizures
[2020-12-03 19:51] VITALS: BP 158/99; PULSE 102; RESP 20; TEMP 36.8; O2SAT 97; BMI 56.9
[2020-12-03 19:59] LABS: UTC Strep Screen (Rapid) Positive (Negative)
[2020-12-03 20:27] VITALS: BP 0/0; PULSE 96; RESP 20; TEMP 37
--- NOTE | 2020-12-04 12:26 | PC.NURSE ---
PATIENT NOTIFIED OF POSITIVE COVID TEST AT THIS TIME
== END 2020-12-03 20:26 | disposition home or self-care (01) ==
PROVIDERS: Emergency Provider Nurse Practitioner Family; PCP Emergency Medicine
DX: J02.0 Streptococcal pharyngitis (principal); U07.1 COVID-19; J45.909 Unspecified asthma, uncomplicated
CPT/HCPCS: 87880; 99203; G0463; U0003

== ENCOUNTER 2021-04-29 12:54 | Emergency (ER) | payer BC, OTHER, SELFPAY ==
[2021-04-29 13:11] VITALS: BP 130/90; PULSE 71; RESP 18; O2SAT 99; BMI 60.5
[2021-04-29 14:20] VITALS: BP 130/90; PULSE 71; RESP 18; TEMP 36.8; O2SAT 99; BMI 60.2
--- NOTE | 2021-04-29 14:44 | HMH.EDUTC ---
[facility] [place] Disposition Clinical Impression: Cervical strain, acute Qualifiers: Encounter type: initial encounter Qualified Code(s): S16.1XXA - Strain of muscle, fascia and tendon at neck level, initial encounter Disposition: Home, Self-Care Condition on Discharge: Good Instructions: DI for Cervical Muscle Strain Additional Instructions: rest Ice with cold pack for 20 minutes remove may repeat for comfort every hour Ibuprofen every 6 hours as needed for pain or inflammation. Follow-up immediately if new or worsening symptoms or no noticeable improvement over the next 3-5 days. follow up with pcp Prescriptions: predniSONE [Prednisone 20mg Tab] 20 mg PO BID #10 tab Prescription Printed Referrals: Joe Wade MD [Primary Care Provider] - Time of Disposition: 14:52 Medical Decision Making - Chema Inquiry Pt receiving controlled substance: No Vital Signs: 04/29/21 13:11 Pulse Rate [Left Radial] 71 Respiratory Rate 18 Blood Pressure [Right Arm] 130/90 Blood Pressure Mean [Right Arm] 103 Blood Pressure Source [Right Arm] Automatic Cuff Blood Pressure Position [Right Arm] Sitting 02 Sat by Pulse Oximetry 99 Oxygen Delivery Method Room Air Medical Decision Narrative: pt states she has taken steroid before and had no issues, in the past has had heart palpitations but has taken them since and had no issues [facility] [place] HPI - General Chief complaint: Urgent [facility] Stated complaint: neck pain and can't move left arm, no accident Time Seen by Provider: 04/29/21 14:44 Mode of Arrival: Ambulatory Source of Information: Patient Limitations: No Limitations Description of Symptoms (Recalled from Triage Doc. by RN): c/o left neck pain that shoots down her arm when she moves since . Denies any chest pain or other issues. - History of Present Illness Provider Complaint: 30 yr old female c/o left neck pain that shoots down her arm when she moves since . Denies any chest pain or other issues. denies fever - Related Data Home Medications Medication Instructions Recorded Confirmed Vit37/Iron/Folic Acid 1 each PO DAILY 01/10/18 06/14/20 [Prenata Chewable Tablet] Ferrous Sulfate 325 mg PO DAILY 09/07/18 06/14/20 Previous Rx's Medication Instructions Recorded medroxyprogesterone 150 mg/mL 150 mg IM [id number] #1 ml 01/14/19 intramuscular suspension Azithromycin [Z-Danielito 250mg Tab*] 250 mg PO UD DOSE PK #6 tab 03/31/20 Benzonatate [Tessalon Perle 100mg 100 mg PO TIDP PRN #30 cap 03/31/20 Cap] Ondansetron [Zofran 4mg ODT] 4 mg PO Q8HP PRN #12 tab.rapdis 03/31/20 norgestimate 0.25 mg-ethinyl 1 tab PO DAILY #28 tab 10/11/20 estradiol 35 mcg tablet Amoxicillin/Potassium Clav 1 tab PO Q12H 10 Days #20 tab 12/03/20 [Augmentin 875-125 Tablet] Brompheniramine/Pseudoephed/Dm 5 ml PO Q6HP PRN #240 syrup 12/03/20 [Bromfed Dm Cough Syrup] predniSONE [Prednisone 20mg 20 mg PO BID #10 tab 04/29/21 Tab] Allergies Allergy/AdvReac Type Severity Reaction Status Date / Time latex [LATEX] Allergy Mild I-ITCHING Verified 06/14/20 13:59 cinnamon [CINNAMON] Allergy Unknown Unknown Verified 06/14/20 13:59 allergy reaction methylprednisolone Allergy Unknown Unknown Verified 06/14/20 13:59 [METHYLPREDNISOLONE] allergy reaction onion [ONION] Allergy Unknown Unknown Verified 06/14/20 13:59 allergy reaction peanut Allergy Anaphylaxis Verified 06/14/20 13:59 shellfish derived Allergy Anaphylaxis Verified 06/14/20 13:59 H History - Hepatitis A Screen Attestation statement:: This patient has been screened for Hepatitis A risk factors. I have reviewed the patient's past medical history: Yes Medical History: Reports:: Asthma, Palpitations Denies:: Cancer, Diabetes Mellitus Type 1, Diabetes Mellitus Type 2, Hyperlipidemia, Hypertension, Migraine, MRSA, Seizures Comment: Super morbid obesity Other Surgeries: Yes: No Previous Surgery, D
[2021-04-29 14:50] VITALS: BP 130/90; PULSE 71; RESP 18; TEMP 36.8; O2SAT 99
== END 2021-04-29 15:14 | disposition home or self-care (01) ==
PROVIDERS: Emergency Provider Nurse Practitioner Family; PCP Emergency Medicine
DX: S16.1XXA Strain of muscle, fascia and tendon at neck level, initial encounter (principal)
CPT/HCPCS: 99202; G0463

== ENCOUNTER → 2021-05-15 13:31 | Outpatient (CLI) | payer OTHER, SELFPAY | PROVIDERS: PCP Emergency Medicine; Visit Provider Nurse Practitioner | DX: U07.1 COVID-19 (principal) | CPT/HCPCS: C9803; U0003; U0005 ==

== ENCOUNTER 2021-07-24 11:34 | Emergency (ER) | payer OTHER, SELFPAY ==
[2021-07-24 12:21] VITALS: BP 134/92; PULSE 71; RESP 16; TEMP 37; O2SAT 98; BMI 60.5
--- NOTE | 2021-07-24 12:23 | HMH.EDUTC ---
[facility] [place] Clinical Impression: Pharyngitis Qualifiers: Pharyngitis/tonsillitis etiology: unspecified etiology Qualified Code(s): J02.9 - Acute pharyngitis, unspecified Disposition: Home, Self-Care Condition on Discharge: Good Instructions: DI for Pharyngitis/Tonsillopharyngitis -- Adult Additional Instructions: Drink plenty of fluids. Take tylenol or ibuprofen for pain or fever. Take the medications as directed. Follow up with your regular doctor. GO TO THE ER FOR ANY WORSENING SYMPTOMS Prescriptions: Brompheniramine/Pseudoephed/Dm [Bromfed Dm Cough Syrup] 5 ml PO Q6HP PRN #240 ml PRN Reason: Cough Transmission Status: Pending to [facility] # Amoxicillin [Amoxicillin 875MG Tab] 875 mg PO Q12H #20 tab Transmission Status: Pending to [facility] # Referrals: Joe Wade MD [Primary Care Provider] - Forms: Work/School Release Time of Disposition: 13:08 Medical Decision Making - Medical Records Medical records reviewed: No: I reviewed the patient's medical records. - Chema Inquiry Pt receiving controlled substance: No Vital Signs: 07/24/21 12:21 Temperature 98.6 F Temperature Source Oral Pulse Rate [Left] 71 Respiratory Rate 16 Blood Pressure [Right Arm] 134/92 H Blood Pressure Mean [Right Arm] 106 02 Sat by Pulse Oximetry 98 - Lab Data Lab results reviewed: Yes: I reviewed the patient's lab results. Lab Results 07/24/21 12:24: Group A Strep Rapid Negative 07/24/21 12:24: Influenza Type A Ag Negative, Influenza Type B Ag Negative Orders (Tests/Meds): ORDERS Category Date Time Status Strep Screen Confirmation Stat Micro 07/24/21 12:24 Received [facility] [place] HPI - General Stated complaint: chills, runny nose, sore throat, cough Time Seen by Provider: 07/24/21 12:23 - History of Present Illness Provider Complaint: She c/o sore throat and feelling bad for the past 3 days. She has been exposed to strep throat. - Related Data Home Medications Medication Instructions Recorded Confirmed Vit37/Iron/Folic Acid 1 each PO DAILY 01/10/18 06/14/20 [Prenata Chewable Tablet] Ferrous Sulfate 325 mg PO DAILY 09/07/18 06/14/20 Previous Rx's Medication Instructions Recorded medroxyprogesterone 150 mg/mL 150 mg IM [id number] #1 ml 01/14/19 intramuscular suspension Azithromycin [Z-Danielito 250mg Tab*] 250 mg PO UD DOSE PK #6 tab 03/31/20 Benzonatate [Tessalon Perle 100mg 100 mg PO TIDP PRN #30 cap 03/31/20 Cap] Ondansetron [Zofran 4mg ODT] 4 mg PO Q8HP PRN #12 tab.rapdis 03/31/20 norgestimate 0.25 mg-ethinyl 1 tab PO DAILY #28 tab 10/11/20 estradiol 35 mcg tablet Amoxicillin/Potassium Clav 1 tab PO Q12H 10 Days #20 tab 12/03/20 [Augmentin 875-125 Tablet] Brompheniramine/Pseudoephed/Dm 5 ml PO Q6HP PRN #240 syrup 12/03/20 [Bromfed Dm Cough Syrup] predniSONE [Prednisone 20mg 20 mg PO BID #10 tab 04/29/21 Tab] Amoxicillin [Amoxicillin 875MG 875 mg PO Q12H #20 tab 07/24/21 Tab] Brompheniramine/Pseudoephed/Dm 5 ml PO Q6HP PRN #240 ml 07/24/21 [Bromfed Dm Cough Syrup] Allergies Allergy/AdvReac Type Severity Reaction Status Date / Time latex [LATEX] Allergy Mild I-ITCHING Verified 06/14/20 13:59 cinnamon [CINNAMON] Allergy Unknown Unknown Verified 06/14/20 13:59 allergy reaction methylprednisolone Allergy Unknown Unknown Verified 06/14/20 13:59 [METHYLPREDNISOLONE] allergy reaction onion [ONION] Allergy Unknown Unknown Verified 06/14/20 13:59 allergy reaction peanut Allergy Anaphylaxis Verified 06/14/20 13:59 shellfish derived Allergy Anaphylaxis Verified 06/14/20 13:59 [facility] History - Hepatitis A Screen Attestation statement:: This patient has been screened for Hepatitis A risk factors. I have reviewed the patient's past medical history: Yes Medical History: Reports:: Asthma, Palpitations Denies:: Cancer, Diabetes Mellitus Type 1, Diabetes Mellit
[2021-07-24 12:38] LABS: UTC Influenza A Antigen Negative (Negative); UTC Influenza B Antigen Negative (Negative)
[2021-07-24 12:47] LABS: Strep Scrn Group A (Rapid) Negative (Negative)
[2021-07-24 13:14] VITALS: BP 134/92; PULSE 71; RESP 16; TEMP 37
== END 2021-07-24 13:15 | disposition home or self-care (01) ==
PROVIDERS: Emergency Provider Nurse Practitioner Family; PCP Emergency Medicine
DX: J02.9 Acute pharyngitis, unspecified (principal); J45.909 Unspecified asthma, uncomplicated; Z79.899 Other long term (current) drug therapy
CPT/HCPCS: 87430; 87804; 99212; G0463

== ENCOUNTER 2022-03-05 12:13 | Emergency (ER) | payer OTHER, SELFPAY ==
--- NOTE | 2022-03-05 13:30 | EXP.UTC ---
Discharge Plan Disposition Patient Disposition: Home, Self-Care Condition: Good Prescriptions Prescriptions: New azithromycin [Zithromax] 250 mg tablet 250 mg PO UD DOSE PK Qty: 6 0RF Rx Instructions: Take two (2) tablets today, then one (1) tablet days #2 thru #5 [id number] [Bromfed DM] 2-30-10 mg/5 mL Syrup 5 ml PO Q6H PRN (Reason: Cough) Qty: 240 0RF ondansetron 4 mg Tablet,Disintegrating 4 mg PO Q8H PRN (Reason: Nausea) Qty: 12 0RF No Action norgestimate-ethinyl estradiol [Sprintec (28)] 0.25-35 mg-mcg tablet 1 tab PO DAILY Qty: 28 11RF Referrals Follow up/Referrals: Joe Wade MD [Primary Care Provider] - See instructions Activity Restrictions/Add. Instructions Additional Instructions/Restrictions: Drink plenty of fluids. Take tylenol or ibuprofen for pain or fever. Take the medications as directed. Follow up with your regular doctor. GO TO THE ER FOR ANY WORSENING SYMPTOMS Clinical Impressions Clinical Impression: Acute viral syndrome, Bronchitis Stand Alone Forms Stand Alone Forms: Work/School Release Instructions Patient Instructions: DI for Viral Syndrome Discharge ED Provider: Jet Grimaldo [facility] General Stated complaint: cough, fever,congestion Time Seen by Provider: 03/05/22 13:30 History of Present Illness Provider Complaint: She states that for the past 2 days she has had worsening scratchy sore throat, chills, body aches and malaise. Related Data Previous Rx's Medication Instructions Recorded norgestimate 0.25 mg-ethinyl 1 tab PO DAILY #28 tabs 09/24/21 estradiol 35 mcg tablet (Sprintec (28)) azithromycin 250 mg tablet 250 mg PO UD DOSE PK #6 tabs 03/05/22 (Zithromax) [id number]-uaccohabocobsle-CX 5 ml PO Q6H PRN Cough #240 mL 03/05/22 2 mg-30 mg-10 mg/5 mL oral syrup (Bromfed DM) ondansetron 4 mg disintegrating 4 mg PO Q8H PRN Nausea #12 tabs 03/05/22 tablet Allergies Allergy/AdvReac Type Severity Reaction Status Date / Time latex [LATEX] Allergy Mild I-ITCHING Verified 02/13/22 14:25 cinnamon [CINNAMON] Allergy Unknown Unknown Verified 02/13/22 14:25 allergy reaction methylprednisolone Allergy Unknown Unknown Verified 02/13/22 14:25 [METHYLPREDNISOLONE] allergy reaction onion [ONION] Allergy Unknown Unknown Verified 02/13/22 14:25 allergy reaction peanut Allergy Anaphylaxis Verified 02/13/22 14:25 shellfish derived Allergy Anaphylaxis Verified 02/13/22 14:25 PFSH PFS Social History Smoking Status: Never smoker alcohol intake: never substance use type: denies use current occupational status: other Travel in the last 8 weeks: None household members: spouse and children housing: house caffeine: Yes ROS Obtained: Yes All systems reviewed & no additional complaints except as documented Constitutional Constitutional: Reports chills and Reports fever(s) Eyes Eyes: Denies eye discharge ENT Ears, Nose, Mouth, and Throat: Reports as per HPI Cardiovascular Cardiovascular: Denies chest pain Respiratory Respiratory: Denies chest congestion and Reports cough Gastrointestinal Gastrointestingal: Reports nausea; Denies abdominal pain, constipation, cramping, diarrhea or vomiting Musculoskeletal Musculoskeletal: Denies arthralgias Integumentary/Breasts Skin/Breast: Denies rash Neurologic Neurologic: Denies paresthesias Physical Exam General General appearance: alert and in no apparent distress Head Head exam: atraumatic, normocephalic and normal inspection Eye Eye exam: Present normal appearance, PERRL and EOMI ENT ENT exam: Present normal exam, normal oropharynx, mucous membranes moist, TM's normal bilaterally and normal external ear exam Neck Neck exam: Present normal inspection, full ROM and trachea midline; Absent meningismus or lymphadenopathy Chest Chest inspection: Present no
[2022-03-05 13:43] LABS: UTC Influenza A Antigen Negative (Negative); UTC Influenza B Antigen Negative (Negative); UTC Strep Screen (Rapid) Negative (Negative)
[2022-03-05 13:52] VITALS: BP 110/77; PULSE 111; RESP 16; TEMP 37.1; O2SAT 96; BMI 50.9
[2022-03-05 14:01] VITALS: BP 110/77; PULSE 111; RESP 16; TEMP 37.1
== END 2022-03-05 14:07 | disposition home or self-care (01) ==
PROVIDERS: Emergency Provider Nurse Practitioner Family; PCP Emergency Medicine
DX: J40 Bronchitis, not specified as acute or chronic (principal); B34.9 Viral infection, unspecified
CPT/HCPCS: 87804; 87880; 99212; G0463

== ENCOUNTER 2022-04-19 17:35 | Emergency (ER) | payer OTHER, SELFPAY ==
[2022-04-19 18:46] VITALS: BP 119/59; PULSE 98; RESP 16; TEMP 37.2; O2SAT 100; BMI 49.7
--- NOTE | 2022-04-19 19:00 | EXP.UTC ---
Discharge Plan Disposition Patient Disposition: Home, Self-Care Condition: Good Prescriptions Prescriptions: No Action norgestimate-ethinyl estradiol [Sprintec (28)] 0.25-35 mg-mcg tablet 1 tab PO DAILY Qty: 28 11RF azithromycin [Zithromax] 250 mg tablet 250 mg PO UD DOSE PK Qty: 6 0RF Rx Instructions: Take two (2) tablets today, then one (1) tablet days #2 thru #5 [id number]-[id number] [Bromfed DM] 2-30-10 mg/5 mL Syrup 5 ml PO Q6H PRN (Reason: Cough) Qty: 240 0RF ondansetron 4 mg Tablet,Disintegrating 4 mg PO Q8H PRN (Reason: Nausea) Qty: 12 0RF Referrals Follow up/Referrals: Joe Wade MD [Primary Care Provider] - See instructions Activity Restrictions/Add. Instructions Additional Instructions/Restrictions: *Monitor Temp, Over the counter Tylenol as directed/as needed Tylenol every 4 hours (as long as your family doctor has told you that you can take it) for fever or pain. and straight to ER if unable to lower temp less than 101.0 after medication given *Warm salt water gargles may help to soothe the throat *Throat Lozenges? *Warm fluids like tea with honey may help to soothe the throat? *Sleep elevated *Humidifier/Vaporizer Check with the pharmacy and OBGYN to see what you can take for cough Follow up IMMEDIATELY for new or worsening symptoms or no Noticeable improvement over the next 48-72 hours. 911 for difficulty breathing or swallowing Clinical Impressions Clinical Impression: Viral upper respiratory tract infection with cough Instructions Patient Instructions: Cough, DI for -- Discomforts and Remedies, Acetaminophen (Alternative Therapy) Discharge ED Provider: María Espinoza [facility] General Stated complaint: sore throat, cough Mode of Arrival: Ambulatory Source of Information: Patient Limitations: No Limitations Time Seen by Provider: 04/19/22 19:00 Description of Symptoms (Recalled from Triage Doc. by RN): pt comes in with c/o cough, bilateral ear pain, pain with coughing. symptoms ongoing for 3 days HEENT Symptoms (Recalled from RN notes): Yes Resp Symptoms (Recalled from RN notes): Yes Skin Symptoms (Recalled from RN notes): No MS Symptoms (Recalled from RN notes): No Functional Status (Recalled from RN notes): n/a History of Present Illness Provider Complaint: Patient states that she has been having sinus congestion , cough, bilateral ear pain and pressure and hurts her throat when she coughs feeling tired and achy States that she isnt coughing anything up but feels like she is having drainage in the back of her throat Related Data Previous Rx's Medication Instructions Recorded norgestimate 0.25 mg-ethinyl 1 tab PO DAILY #28 tabs 09/24/21 estradiol 35 mcg tablet (Sprintec (28)) azithromycin 250 mg tablet 250 mg PO UD DOSE PK #6 tabs 03/05/22 (Zithromax) [id number]-bazjkvfhyukrshp-AD 5 ml PO Q6H PRN Cough #240 mL 03/05/22 2 mg-30 mg-10 mg/5 mL oral syrup (Bromfed DM) ondansetron 4 mg disintegrating 4 mg PO Q8H PRN Nausea #12 tabs 03/05/22 tablet Allergies Allergy/AdvReac Type Severity Reaction Status Date / Time latex [LATEX] Allergy Mild I-ITCHING Verified 04/19/22 18:48 cinnamon [CINNAMON] Allergy Unknown Unknown Verified 04/19/22 18:48 allergy reaction methylprednisolone Allergy Unknown Unknown Verified 04/19/22 18:48 [METHYLPREDNISOLONE] allergy reaction onion [ONION] Allergy Unknown Unknown Verified 04/19/22 18:48 allergy reaction peanut Allergy Anaphylaxis Verified 04/19/22 18:48 shellfish derived Allergy Anaphylaxis Verified 04/19/22 18:48 Worker's Comp Is this a Worker's Comp case?: No [facility] Disclaimer: The information contained in this section may have been updated after the patient was seen, as this information can be updated by other users. Social History Smoking Status: Never smoker alcoh
[2022-04-19 19:12] LABS: UTC Pregnancy Test, Urine Positive (Negative)
[2022-04-19 19:17] VITALS: BP 119/59; PULSE 98; RESP 16; TEMP 37.2
== END 2022-04-19 19:18 | disposition home or self-care (01) ==
PROVIDERS: Emergency Provider Nurse Practitioner; PCP Emergency Medicine
DX: J06.9 Acute upper respiratory infection, unspecified (principal)
CPT/HCPCS: 81025; 99212; G0463

== ENCOUNTER 2022-04-25 10:23 | Emergency (ER) | payer OTHER, SELFPAY ==
[2022-04-25 11:25] VITALS: BP 123/81; PULSE 90; RESP 19; TEMP 36.7; O2SAT 99; BMI 49.1
[2022-04-25 11:31] LABS: UTC Strep Screen (Rapid) Negative (Negative)
--- NOTE | 2022-04-25 11:32 | EXP.UTC ---
Discharge Plan Disposition Patient Disposition: Home, Self-Care Condition: Good Prescriptions Prescriptions: New amoxicillin [amoxicillin] 500 mg tablet 500 mg PO BID 10 Days Qty: 20 0RF Referrals Follow up/Referrals: Joe Wade MD [Primary Care Provider] - See instructions Activity Restrictions/Add. Instructions Additional Instructions/Restrictions: Drink plenty of fluids. Take tylenol or ibuprofen for pain or fever. Take the medications as directed. Follow up with your regular doctor. GO TO THE ER FOR ANY WORSENING SYMPTOMS Clinical Impressions Clinical Impression: Pharyngitis Stand Alone Forms Stand Alone Forms: Work/School Release Instructions Patient Instructions: DI for Pharyngitis/Tonsillopharyngitis -- Adult Discharge ED Provider: Jet Grimaldo [facility] General Stated complaint: cough, runny nose, sore throat Time Seen by Provider: 04/25/22 11:31 History of Present Illness Provider Complaint: She states that for the past 4 days she has had worsening sore throat, cough and sinus congestion. Related Data Previous Rx's Medication Instructions Recorded amoxicillin 500 mg tablet 500 mg PO BID 10 days #20 tabs 04/25/22 Allergies Allergy/AdvReac Type Severity Reaction Status Date / Time latex [LATEX] Allergy Mild I-ITCHING Verified 04/25/22 11:44 cinnamon [CINNAMON] Allergy Unknown Unknown Verified 04/25/22 11:44 allergy reaction methylprednisolone Allergy Unknown Unknown Verified 04/25/22 11:44 [METHYLPREDNISOLONE] allergy reaction onion [ONION] Allergy Unknown Unknown Verified 04/25/22 11:44 allergy reaction peanut Allergy Anaphylaxis Verified 04/25/22 11:44 shellfish derived Allergy Anaphylaxis Verified 04/25/22 11:44 [facility] Disclaimer: The information contained in this section may have been updated after the patient was seen, as this information can be updated by other users. Social History Smoking Status: Never smoker alcohol intake: never substance use type: denies use current occupational status: other Travel in the last 8 weeks: None household members: spouse and children housing: house caffeine: Yes ROS Obtained: Yes All systems reviewed & no additional complaints except as documented Constitutional Constitutional: Reports chills and Reports fever(s) Eyes Eyes: Denies eye discharge ENT Ears, Nose, Mouth, and Throat: Reports as per HPI Cardiovascular Cardiovascular: Denies chest pain Respiratory Respiratory: Denies chest congestion and Reports cough Gastrointestinal Gastrointestingal: Reports nausea; Denies abdominal pain, constipation, cramping, diarrhea or vomiting Musculoskeletal Musculoskeletal: Denies arthralgias Integumentary/Breasts Skin/Breast: Denies rash Neurologic Neurologic: Denies paresthesias Physical Exam General General appearance: alert and in no apparent distress Head Head exam: atraumatic, normocephalic and normal inspection Eye Eye exam: Present normal appearance, PERRL and EOMI ENT ENT exam: Present mucous membranes moist and normal external ear exam Expanded ENT Exam TM/Canal exam: Bilateral TM: erythema and bulging Nose exam: Absent sinus tenderness Mouth exam: Present normal external inspection; Absent drooling Teeth exam: Present normal inspection Throat exam: Present tonsillar erythema, tonsillomegaly and tonsillar exudate Neck Neck exam: Present normal inspection, full ROM and trachea midline; Absent tenderness, meningismus or lymphadenopathy Chest Chest inspection: Present normal inspection and symmetric chest wall rise; Absent tenderness Respiratory Respiratory exam: Present normal lung sounds bilaterally; Absent respiratory distress, wheezes or stridor Cardiovascular Cardiovascular exam: Present regular rate and normal rhythm; Absent systolic murmur or diastolic murmur Abdominal Exam Abdominal exam: Present
[2022-04-25 12:13] LABS: UTC Influenza A Antigen Negative (Negative)
[2022-04-25 12:14] LABS: UTC Influenza B Antigen Negative (Negative)
[2022-04-25 12:17] VITALS: BP 123/81; PULSE 90; RESP 19; TEMP 36.7; O2SAT 99
== END 2022-04-25 12:17 | disposition home or self-care (01) ==
PROVIDERS: Emergency Provider Nurse Practitioner Family; PCP Emergency Medicine
DX: J02.9 Acute pharyngitis, unspecified (principal)
CPT/HCPCS: 87804; 87880; 99212; 99213; G0463

== ENCOUNTER → 2022-05-15 15:35 | Outpatient (CLI) | payer OTHER, SELFPAY ==
[2022-05-15 17:54] LABS: Basophils % 0.3 % (0.1-2.0); Eosinophils # 0.1 K/mm3 (0.0-0.4); Eosinophils % 1.5 % (0.1-12.0); Hematocrit 40.5 % (37.0-47.0); Hemoglobin 13.2 g/dL (12.2-16.2); Lymphocytes # 2.1 K/mm3 (0.7-4.5); Lymphocytes % 23.7 % (10-50); Mean Corpuscular HGB Conc 32.6 g/dL (31.8-35.4); Mean Corpuscular Hemoglobin 28.7 pg (27.0-31.2); Mean Platelet Volume 9.7 fl (7.4-10.4); Monocytes # 0.4 K/mm3 (0.1-1.0); Monocytes % 3.9 % (1.7-9.3); Neutrophils # 6.3 K/mm3 (1.8-7.8); Neutrophils % 70.7 % (37.0-80.0); Platelet Count 237 K/mm3 (142-424); Red Cell Distribution Width 13.8 % (11.5-17.5); White Blood Count 8.9 K/mm3 (4.8-10.8)
[2022-05-17 10:43] LABS: HIV Screen 4th Generation wRfx Non Reactive (Non Reactive)
[2022-05-17 11:33] LABS: Rapid Plasma Reagin Ab Titer Non Reactive (NonRea<1:1)
[2022-05-17 23:08] LABS: Neisseria gonorrhoeae, NAA Negative (Negative)
[2022-05-25 03:56] LABS: Hepatitis B Surface Antigen Negative
[2022-05-25 03:57] LABS: Hepatitis C Antibody <0.1
== END ==
PROVIDERS: PCP Emergency Medicine; Visit Provider Nurse Practitioner Obstetrics & Gynecology
DX: Z34.90 Encounter for supervision of normal pregnancy, unspecified, unspecified trimester (principal)
CPT/HCPCS: 36415; 85025; 86593; 86703; 86762; 86850; 87340; 87380; 87491; 87591; G0432

== ENCOUNTER → 2022-06-03 14:35 | Outpatient (CLI) | payer OTHER, SELFPAY ==
--- NOTE | 2022-06-03 14:35 | US_ITS ---
FINAL REPORT TECHNIQUE: Sonographic images of the pelvis were obtained. CLINICAL HISTORY: for dates FINDINGS: There is a single living intrauterine gestation. [place]-rump length measures 5.34 cm. Gestational age is 12 weeks 0 days. The placenta is posterior. The cervix is grossly unremarkable. Cardiac activity is present. Heart rate measures 172 bpm. The right ovary measures 2.5 x 1.7 x 1.4 cm. It is normal. The left ovary measures 2.6 x 2.3 x 1.5 cm. It is normal. Color imaging to the ovaries is normal. There is no free fluid. IMPRESSION: Single, living, intrauterine gestation with an average ultrasound age of 12 weeks 0. Reviewed, Interpreted and Dictated by Elizabeth Doyle MD Transcribed by Vanessa Donald Authenticated and [facility]
== END ==
PROVIDERS: PCP Emergency Medicine; Visit Provider Nurse Practitioner Obstetrics & Gynecology
DX: Z34.90 Encounter for supervision of normal pregnancy, unspecified, unspecified trimester (principal)
CPT/HCPCS: 76801

== ENCOUNTER 2022-06-13 06:41 | Emergency (ER) | payer OTHER, SELFPAY ==
[2022-06-13 06:42] VITALS: BP 120/61; PULSE 84; RESP 17; TEMP 36.8; O2SAT 98; BMI 49.6
--- NOTE | 2022-06-13 06:50 | HMH.EDGENADL ---
Discharge Plan Disposition Patient Disposition: Home, Self-Care Condition: Good Prescriptions Prescriptions: No Action prenat.vits,shelby,[id number]-tulwy Tablet 1 tab PO DAILY Referrals Follow up/Referrals: Joe Wade MD [Primary Care Provider] - See instructions Activity Restrictions/Add. Instructions Additional Instructions/Restrictions: Return for vaginal spotting abdominal pain fever or any other concerns within 8 hours otherwise follow-up with Dr. Pizarro in the next few days. Clinical Impressions Clinical Impression: First trimester bleeding Discharge ED Provider: Nolan Jaramillo General Adult HPI General Chief complaint: Vaginal Bleeding Stated complaint: 13 weeks with bleeding Time Seen by Provider: 06/13/22 06:45 History of Present Illness HPI narrative: 31-year-old female A1 is 13 weeks presents with vaginal spotting x1. She says the spotting has resolved. She had recent ultrasound that showed intrauterine . She follows with Dr. Pizarro, she has no abdominal pain or cramping. No nausea vomiting diarrhea. No chest pain or shortness of breath. No dysuria or hematuria. No fever no chills. She has history of 1 miscarriage in the past Related Data Home Medications Medication Instructions Recorded Confirmed prenat.vits,shelby,[id number] 1 tab PO DAILY 05/15/22 06/12/22 Allergies Allergy/AdvReac Type Severity Reaction Status Date / Time latex [LATEX] Allergy Mild I-ITCHING Verified 06/12/22 15:30 cinnamon [CINNAMON] Allergy Unknown Unknown Verified 06/12/22 15:30 allergy reaction methylprednisolone Allergy Unknown Unknown Verified 06/12/22 15:30 [METHYLPREDNISOLONE] allergy reaction onion [ONION] Allergy Unknown Unknown Verified 06/12/22 15:30 allergy reaction peanut Allergy Anaphylaxis Verified 06/12/22 15:30 shellfish derived Allergy Anaphylaxis Verified 06/12/22 15:30 [facility] Dis[facility]: The information contained in this section may have been updated after the patient was seen, as this information can be updated by other users. Surgical History Hx of dilation and curettage Family History Other Cancer Thyroid disorder Social History Smoking Status: Current every day smoker tobacco type: cigarettes alcohol intake: never substance use type: marijuana current occupational status: employed Travel in the last 8 weeks: None household members: spouse and children housing: house caffeine: Yes ROS Obtained: Yes All systems reviewed & no additional complaints except as documented Constitutional Constitutional: Denies fatigue and Denies fever(s) Eyes Eyes: Denies itchy eyes ENT Ears, Nose, Mouth, and Throat: Denies hearing loss Cardiovascular Cardiovascular: Denies chest pain, Denies dyspnea and Denies dyspnea on exertion Respiratory Respiratory: Denies dyspnea and Denies dyspnea on exertion Gastrointestinal Gastrointestingal: Denies constipation Genitourinary Female Genitourinary: Denies dysuria and Denies hematuria Musculoskeletal Musculoskeletal: Denies muscle cramps Integumentary/Breasts Skin/Breast: Denies redness and Denies rash Neurologic Neurologic: Denies confusion Endocrine Endocrine: Denies fatigue Hematologic/Lymphatic Henatologic/Lymphatic: Denies easy bleeding Allergic/Immunologic Allergic/Immunologic: Denies itchy eyes Physical Exam General General appearance: alert and in no apparent distress Eye Eye exam: Present PERRL and EOMI ENT ENT exam: Present normal exam and normal oropharynx Neck Neck exam: Present normal inspection Chest Chest inspection: Present symmetric chest wall rise Respiratory Respiratory exam: Present normal lung sounds bilaterally; Absent respiratory distress Cardiovascular Cardiovascular exam:
[2022-06-13 06:58] VITALS: BMI 49.6
--- NOTE | 2022-06-13 07:16 | PC.NURSE ---
er at bedside
[2022-06-13 07:35] LABS: Basophils # 0.1 K/mm3 (0-0.2); Basophils % 0.6 % (0.1-2.0); Eosinophils # 0.1 K/mm3 (0.0-0.4); Eosinophils % 1.7 % (0.1-12.0); Hematocrit 39.9 % (37.0-47.0); Lymphocytes # 1.6 K/mm3 (0.7-4.5); Lymphocytes % 19.3 % (10-50); Mean Corpuscular HGB Conc 32.7 g/dL (31.8-35.4); Mean Corpuscular Hemoglobin 29.3 pg (27.0-31.2); Mean Corpuscular Volume 89.7 fl (81-99); Mean Platelet Volume 9.5 fl (7.4-10.4); Monocytes # 0.5 K/mm3 (0.1-1.0); Monocytes % 6.3 % (1.7-9.3); Neutrophils # 5.9 K/mm3 (1.8-7.8); Neutrophils % 72.1 % (37.0-80.0); Platelet Count 188 K/mm3 (142-424); Red Blood Count 4.45 M/mm3 (4.20-5.40); White Blood Count 8.1 K/mm3 (4.8-10.8)
[2022-06-13 07:37] LABS: Chloride 110 mmol/L (98-107)
[2022-06-13 07:38] VITALS: BP 114/71; PULSE 82; PULSE 85; RESP 16; RESP 20; TEMP 36.6; O2SAT 98; O2SAT 99
[2022-06-13 07:38] LABS: Potassium 3.8 mmoL/L (3.5-5.1); Sodium 138 mmol/L (136-145)
[2022-06-13 07:40] LABS: Blood Urea Nitrogen 10 mg/dl (7-17); Creatinine Clearance Estimated 167 mL/min (50-200); Estimated Glomerular Filt Rate 146 ml/min (>60); GFR (African American) 177 ML/MIN (>60)
[2022-06-13 07:41] LABS: Anion Gap 6.8 mEq/L (5-15); Calcium 8.7 mg/dl (8.4-10.2); Carbon Dioxide 25 mmol/L (22.0-30.0); Glucose 96 mg/dl (74-100)
--- NOTE | 2022-06-13 08:15 | PC.NURSE ---
ROUNDED ON PT NO COMPLAINTS AT THIS TIME
[2022-06-13 08:25] LABS: HCG,Quantitative 18634 mIU/ml (0-5.42)
[2022-06-13 08:28] VITALS: BP 120/77; PULSE 84; RESP 20; TEMP 36.6; O2SAT 98
== END 2022-06-13 08:30 | disposition home or self-care (01) ==
PROVIDERS: Emergency Provider Emergency Medicine; PCP Emergency Medicine
DX: O46.8X1 Other antepartum hemorrhage, first trimester (principal); O99.331 Smoking (tobacco) complicating pregnancy, first trimester; F17.210 Nicotine dependence, cigarettes, uncomplicated; Z80.9 Family history of malignant neoplasm, unspecified; Z83.49 Family history of other endocrine, nutritional and metabolic diseases; Z3A.13 13 weeks gestation of pregnancy
CPT/HCPCS: 80048; 84702; 85025; 99284

== ENCOUNTER → 2022-08-07 14:14 | Outpatient (CLI) | payer OTHER, SELFPAY ==
--- NOTE | 2022-08-07 14:21 | US_ITS ---
FINAL REPORT CLINICAL HISTORY: 20 week anatomt scan, low lying placenta FINDINGS: There is a single live intrauterine gestation. Presentation is breech. The cervix is closed and measures 3.8 cm. Placenta is posterior, grade 1. movement is noted. Heart rate is identified at 140 beats per minute. Three-vessel cord with satisfactory umbilical cord insertion. Four-chamber heart is noted. ABDOMEN: Both kidneys are unremarkable. SPINE: No anomalies identified. AMNIOTIC FLUID: Appropriate amount. MEASUREMENTS: ULTRASOUND AGE: 21 weeks 1 day. GESTATION AGE: 21 weeks 1 day. ESTIMATED WEIGHT: 406 g GROWTH PERCENTILE: 47% BPD: 5.00 cm corresponding to 21 weeks 1 day. OFD: 6.25 cm corresponding to 21 weeks 0 days. HC: 17.80 cm corresponding to 20 weeks 2 days. AC: 16.43 cm corresponding to 21 weeks 4 days. FL: 3.51 cm corresponding to 21 weeks 1 day. CEREBELLUM: 2.09 cm corresponding to 21 weeks 1 day. HUMERUS: 3.31 cm corresponding to 21 weeks 2 days. HC/AC: 1.08 CI: 80% FL/BPD: 70% FL/AC: 21% IMPRESSION: Single living IUP with an ultrasound age of 21 weeks 1 day. Reviewed, Interpreted and Dictated by Noel Pimentel III, MD Transcribed by Vanessa Donald Authenticated and [facility]
== END ==
PROVIDERS: PCP Emergency Medicine; Visit Provider Nurse Practitioner Obstetrics & Gynecology
DX: O44.40 Low lying placenta NOS or without hemorrhage, unspecified trimester (principal); Z3A.20 20 weeks gestation of pregnancy
CPT/HCPCS: 76811

== ENCOUNTER → 2022-09-20 11:08 | Outpatient (CLI) | payer OTHER, SELFPAY ==
[2022-09-20 11:30] LABS: Basophils % 0.1 % (0.1-2.0); Eosinophils # 0.1 K/mm3 (0.0-0.4); Eosinophils % 0.8 % (0.1-12.0); Hematocrit 39.2 % (37.0-47.0); Hemoglobin 13.1 g/dL (12.2-16.2); Lymphocytes # 1.9 K/mm3 (0.7-4.5); Lymphocytes % 19.4 % (10-50); Mean Corpuscular HGB Conc 33.5 g/dL (31.8-35.4); Mean Corpuscular Hemoglobin 29.3 pg (27.0-31.2); Mean Corpuscular Volume 87.4 fl (81-99); Mean Platelet Volume 9.6 fl (7.4-10.4); Monocytes # 0.5 K/mm3 (0.1-1.0); Monocytes % 4.9 % (1.7-9.3); Neutrophils # 7.1 K/mm3 (1.8-7.8); Neutrophils % 74.8 % (37.0-80.0); Platelet Count 191 K/mm3 (142-424); Red Blood Count 4.49 M/mm3 (4.20-5.40); Red Cell Distribution Width 14.2 % (11.5-17.5); White Blood Count 9.6 K/mm3 (4.8-10.8)
[2022-09-20 11:35] LABS: Glucose,Fasting 78 mg/dl (74-100)
[2022-09-20 14:45] LABS: Glucose 1 Hour 153 mg/dL (74-100)
== END ==
PROVIDERS: PCP Emergency Medicine; Visit Provider Nurse Practitioner Obstetrics & Gynecology
DX: Z34.90 Encounter for supervision of normal pregnancy, unspecified, unspecified trimester (principal); Z3A.27 27 weeks gestation of pregnancy
CPT/HCPCS: 36415; 82951; 85025

== ENCOUNTER → 2022-09-28 09:33 | Outpatient (CLI) | payer OTHER, SELFPAY ==
[2022-09-28 10:11] LABS: Barbiturates Screen,Urine Negative ng/ml (<200)
[2022-09-28 10:12] LABS: Amphetamine/Metha Screen,Urine Negative ng/ml (<1000); Benzodiazepines Screen,Urine Negative ng/ml (<200)
[2022-09-28 10:13] LABS: Cannabinoid Screen,Urine Negative ng/ml (<50)
[2022-09-28 10:14] LABS: Cocaine Screen,Urine Negative ng/ml (<300); Methadone Screen,Urine Negative ng/ml (<300)
[2022-09-28 10:15] LABS: Opiate Screen,Urine Negative ng/ml (<300)
[2022-09-28 10:16] LABS: Phencyclidine Screen,Urine Negative ng/ml (<25)
[2022-09-28 10:52] LABS: Glucose,Fasting 85 mg/dl (74-100)
[2022-09-28 11:28] LABS: Glucose 1 Hour 168 mg/dL (74-100)
[2022-09-28 14:13] LABS: Glucose 2 Hour 160 mg/dL (74-100); Glucose 3 Hour 155 mg/dL (74-100)
== END ==
PROVIDERS: PCP Emergency Medicine; Visit Provider Nurse Practitioner Obstetrics & Gynecology
DX: Z34.92 Encounter for supervision of normal pregnancy, unspecified, second trimester (principal); Z3A.26 26 weeks gestation of pregnancy
CPT/HCPCS: 36415; 80305; 82951

== ENCOUNTER → 2022-11-19 16:34 | Outpatient (CLI) | payer OTHER, SELFPAY | PROVIDERS: PCP Emergency Medicine; Visit Provider Nurse Practitioner Obstetrics & Gynecology | DX: Z34.93 Encounter for supervision of normal pregnancy, unspecified, third trimester (principal); Z3A.36 36 weeks gestation of pregnancy | CPT/HCPCS: 86403 ==

== ENCOUNTER → 2022-11-29 15:09 | Outpatient (CLI) | payer OTHER, SELFPAY ==
--- NOTE | 2022-11-29 15:09 | US_ITS ---
PROCEDURE: US OB BIOPHYSICAL PROFILE CLINICAL INDICATION: GDM/ Breech position COMPARISON: 08/07/2022 anatomy us FINDINGS: Transabdominal sonographic images of the uterus were obtained. From her established due date she is 37weeks 3days. The following parameters are obtained: Viable fetus in the cephalic presentation with a posterior placenta grade 3. Average ultrasound age is 37weeks 3days. Estimated due date by ultrasound is 12/17/2022. Estimated weight is 6lb 14.38oz. 51percentile. heart rate: 136bpm bpm. BPD: 37 weeks 0 days HC: 38 weeks 2 days AC: 37 weeks 1 day FL: 37 weeks 0 days HC/AC: 1.01 FL/BPD: 0.79 FL/AC: 0.22 Amniotic fluid index: 11.48cm Qualitative AFV: 2 breathing movements: 2 Gross body movements: 2 Tone: 2 Biophysical profile score: 8 No obvious anomalies evident.Kidneys, 4-chamber heart, diaphragm, bladder, three-vessel cord appear normal. IMPRESSION: 1. Viable fetus in the cephalic presentation with a posterior placenta grade 3. 2. The fluid is within normal limits. 3. Biophysical profile is 8/8 with good breathing movement seen. 4. There has been good growth with fetus at the 51 perentile. Dictated by: Andres Jeff MD 12/01/2022 08:46 Andres Jeff MD in OV 12/01/2022 08:46
== END ==
PROVIDERS: PCP Emergency Medicine; Visit Provider Nurse Practitioner Obstetrics & Gynecology
DX: O24.410 Gestational diabetes mellitus in pregnancy, diet controlled (principal); O32.1XX0 Maternal care for breech presentation, not applicable or unspecified; Z3A.37 37 weeks gestation of pregnancy
CPT/HCPCS: 76816; 76819

== ENCOUNTER → 2022-12-02 12:19 | Outpatient (CLI) | payer SELFPAY ==
--- NOTE | 2022-12-02 12:24 | XR_ITS ---
FINAL REPORT CLINICAL HISTORY: R foot pain after fall COMPARISON: None FINDINGS: RIGHT FOOT: Three views of the right foot were obtained. There is no acute fracture or dislocation. There is a moderate hallux valgus deformity. There is a small plantar calcaneal spur. The joint spaces are intact. There is soft tissue swelling of the ankle. IMPRESSION: Soft tissue swelling without acute bony abnormality. Reviewed, Interpreted and Dictated by Noel Pimentel III, MD Transcribed by Lizette Pizarro Authenticated and . [facility]
== END ==
PROVIDERS: PCP Emergency Medicine; Visit Provider Student in an Organized Health Care Education/Training Program
DX: M79.671 Pain in right foot (principal); W19.XXXA Unspecified fall, initial encounter
CPT/HCPCS: 73630

== ENCOUNTER 2022-12-09 05:35 | Inpatient (IN) | payer OTHER, SELFPAY ==
[2022-12-09 05:46] VITALS: BMI 53.6
[2022-12-09 06:20] LABS: Microscopic, Urine URINE MICROSCOPIC (MICROSCOPIC)
[2022-12-09 06:22] LABS: Basophils % 0.2 % (0.1-2.0); Eosinophils # 0.3 K/mm3 (0.0-0.4); Eosinophils % 3.5 % (0.1-12.0); Hematocrit 40.5 % (37.0-47.0); Hemoglobin 13.4 g/dL (12.2-16.2); Lymphocytes # 2.1 K/mm3 (0.7-4.5); Mean Corpuscular HGB Conc 33.2 g/dL (31.8-35.4); Mean Corpuscular Hemoglobin 29.2 pg (27.0-31.2); Mean Corpuscular Volume 87.9 fl (81-99); Mean Platelet Volume 9.9 fl (7.4-10.4); Monocytes # 0.6 K/mm3 (0.1-1.0); Monocytes % 6.1 % (1.7-9.3); Neutrophils # 6.9 K/mm3 (1.8-7.8); Neutrophils % 69.2 % (37.0-80.0); Platelet Count 186 K/mm3 (142-424); Red Blood Count 4.61 M/mm3 (4.20-5.40); Red Cell Distribution Width 14.6 % (11.5-17.5); White Blood Count 9.9 K/mm3 (4.8-10.8)
[2022-12-09 06:23] LABS: Appearance,Urine SL CLOUDY (Clear); Blood, Urine Negative (Negative); Color,Urine YELLOW (Yellow); Glucose,Urine (UA) Negative (Negative); Ketones,Urine TRACE (Negative); Leukocyte Esterase,Urine Negative (Negative); Nitrate,Urine Negative (Negative); PH,Urine 6.5 (5.0-8.5); Protein,Urine TRACE (Negative); Specific Gravity, Urine 1.025 (1.005-1.030)
[2022-12-09 06:28] LABS: Bilirubin,Urine 1+ (Negative)
[2022-12-09 06:36] LABS: Amphetamine/Metha Screen,Urine Negative ng/ml (<1000); Barbiturates Screen,Urine Negative ng/ml (<200)
[2022-12-09 06:37] LABS: Benzodiazepines Screen,Urine Negative ng/ml (<200)
[2022-12-09 06:38] LABS: Cannabinoid Screen,Urine Negative ng/ml (<50); Cocaine Screen,Urine Negative ng/ml (<300)
[2022-12-09 06:39] LABS: Methadone Screen,Urine Negative ng/ml (<300); Opiate Screen,Urine Negative ng/ml (<300)
[2022-12-09 06:40] LABS: Phencyclidine Screen,Urine Negative ng/ml (<25)
[2022-12-09 06:55] LABS: Bacteria,Urine 3+ /lpf; RBC,Urine Occasional #/hpf (0-3)
[2022-12-09 06:56] VITALS: BP 124/81; PULSE 78; RESP 18; TEMP 36.6; O2SAT 97; BMI 53.4
--- NOTE | 2022-12-09 07:20 | HMH.PHAINT1 ---
Pharmacy Intervention Comments: MEDICATION RECONCILIATION COMPLETED ON PATIENT USING EXTERNAL FILL HISTORY FROM PHARMACY. -YOVANNY HAYES, MELCHORD
--- NOTE | 2022-12-09 08:16 | EXP.LABOR.NO ---
Labor Note Subjective: Date: 12/09/22 Time: 07:15 irregular contractions Objective: NST:: Reactive Contractions:: infrequent Cervical Dilation:: 3 Effacement:: 50% Station: -2 Membranes: artificially ruptured Fetus: monitoring type:: Internal and External Comment:: I ruptured her membranes and there was clear fluid. I inserted an IUPC. Assessment: Labor progressing?: Yes Cephalopelvic disproportion?: No Plan: Anesthesia for epidural?: Yes Continue to labor down?: Yes Plan for ?: No Continue to monitor?: Yes Start pushing?: No
--- NOTE | 2022-12-09 08:18 | EXP.HP ---
History of Present Illness *Admission Date: 12/09/22 *Reason for visit:: Term , previous vaginal deliveries, gestational diabetes *History of present illness: She is a 32-year-old 5 para 3 aborta 1 who is 39 weeks gestational age. She has been followed for diet-controlled gestational diabetes. As result of that she is admitted for induction of labor at term. [facility] Disclaimer: The information contained in this section may have been updated after the patient was seen, as this information can be updated by other users. Medical History Hypokalemia Low lying placenta with hemorrhage in second trimester, antepartum Maternal obesity affecting , antepartum Reactive airway disease Surgical History Hx of dilation and curettage Family History Cancer Thyroid disorder Social History Smoking Status: Current every day smoker tobacco type: cigarettes alcohol intake: never substance use type: marijuana current occupational status: unemployed Travel in the last 8 weeks: None household members: spouse and children housing: house caffeine: Yes Review of Systems Review of Systems Review of systems:: pertinent systems reviewed and negative unless documented below Meds Home Medications and Allergies Home Medications Medication Instructions Recorded Confirmed Type ferrous sulfate 325 mg (65 mg 325 mg PO DAILY Supplement 12/09/22 12/09/22 History iron) tablet vit no.95-ferrous 1 tab PO DAILY Supplement 12/09/22 12/09/22 History fumarate 28 mg-folic acid 800 mcg tablet () New Prescriptions to Start Prescriptions: Allergies Allergy/AdvReac Type Severity Reaction Status Date / Time latex [LATEX] Allergy Mild I-ITCHING Verified 12/05/22 10:24 cinnamon [CINNAMON] Allergy Unknown Unknown Verified 12/05/22 10:24 allergy reaction methylprednisolone Allergy Unknown Unknown Verified 12/05/22 10:24 [METHYLPREDNISOLONE] allergy reaction onion [ONION] Allergy Unknown Unknown Verified 12/05/22 10:24 allergy reaction peanut Allergy Anaphylaxis Verified 12/05/22 10:24 shellfish derived Allergy Anaphylaxis Verified 12/05/22 10:24 Exam Data for Last 24 hours Vital signs and Labs for Last 24 Hours: Temp Pulse Resp BP Pulse Ox O2 Del Method 97.8 F 78 18 124/81 97 Room Air 12/09/22 06:56 12/09/22 06:56 12/09/22 06:56 12/09/22 06:56 12/09/22 06:56 12/09/22 06:56 Laboratory Results - last 24 hr 12/09/22 06:05: WBC 9.9, RBC 4.61, Hgb 13.4, Hct 40.5, MCV 87.9, MCH 29.2, MCHC 33.2, RDW 14.6, Plt Count 186, MPV 9.9, Neut % (Auto) 69.2, Lymph % (Auto) 21.0, [place] % (Auto) 6.1, Eos % (Auto) 3.5, Baso % (Auto) 0.2, Neut # (Auto) 6.9, Lymph # (Auto) 2.1, Republic # (Auto) 0.6, Eos # (Auto) 0.3, Baso # (Auto) 0.0, Urine Color Yellow, Urine Appearance Sl cloudy, Urine pH 6.5, Ur Specific [place] 1.025, Urine Protein Trace, Urine Glucose (UA) Negative, Urine Ketones Trace, Urine Blood Negative, Urine Nitrate Negative, Urine Bilirubin 1+ A, Urine Urobilinogen 2.0, Ur Leukocyte Esterase Negative, Urine RBC Occasional, Urine WBC 5-10, Ur Squamous Epith Cells 10-20, Urine Bacteria 3+, Urine Opiates Screen Negative, Urine Methadone Screen Negative, Ur Barbituates Screen Negative, Ur Phencyclidine Scrn Negative, Ur Amphetamines Screen Negative, U Benzodiazepines Scrn Negative, Urine Cocaine Screen Negative, U Marijuana (THC) Screen Negative, Blood Type A Positive, Antibody Screen Negative, Crossmatch (AHG) See Detail I & O for Last 24 hours: Intake & Output 12/06/22 12/07/22 12/08/22 12/09/22 11:59 11:59 11:59 11:59 Weight 352 lb 15.996 oz Constitutional Constitutional: no acute distress and morbidly obese *Routine HEENT Exam
--- NOTE | 2022-12-09 10:48 | EXP.ANES.CKL ---
[facility] Disclaimer: The information contained in this section may have been updated after the patient was seen, as this information can be updated by other users. Medical History Hypokalemia Low lying placenta with hemorrhage in second trimester, antepartum Maternal obesity affecting , antepartum Reactive airway disease Surgical History Hx of dilation and curettage Family History Other Cancer Thyroid disorder Social History Smoking Status: Current every day smoker tobacco type: cigarettes alcohol intake: never substance use type: marijuana current occupational status: unemployed Travel in the last 8 weeks: None household members: spouse and children housing: house caffeine: Yes [facility] Anesthesia Checklist Patient Identification Patient Identification: Arm Band and Verbal (Name & ) Structural Data Admitted From: Inpatient Planned Operative Procedure/s: Labor epidural Consent for Planned Operative Procedure(s) Verified: Yes NPO Status Verified Time NPO: 00:00 Chart Verification Results Verified: CBC Additional verifications Patient : Yes Anesthesia Reactions: No Airway Assessment Mallampati Score:: Class II C-Spine Mobility Assessed: Yes TMJ Mobility Assessed: Yes Dentition: Good Dentition Neurological Assessment Level of Consciousness: Awake Hx Seizures: No Numbness or tingling in extremities: No Anesthesia Plan Anesthesia Risk discussed: Yes Anesthesia Plan: Verified ASA Class: III Anesthesia Type: Epidural
--- NOTE | 2022-12-09 11:46 | EXP.DN ---
Delivery Note Delivery Date:: 12/09/22 Delivery Time:: 11:36 Was labor medically induced?: Yes Induction method: per pitocin protocol Gestational age (weeks): 39 Infant delivered prior to 39 weeks?: No Justification for early elective delivery:: Gestational Diabetes Infant Gender: Male at 1 minute: 8 at 5 minutes: 9 Delivery Procedure:: She is a 32-year-old 5 para 3 aborta 1 who was 39 weeks gestational age. She has gestational diabetes that is diet-controlled. As result of that we elected to deliver her at 39 weeks gestational age. She was started on IV oxytocin had her membranes ruptured and progressed to full dilation. An epidural was attempted but it did not help her with her pain relief. She subsequently pushed and delivered spontaneously a liveborn male child at 11:36 AM on the morning of December 09, 2022. On delivery the head the anterior shoulder rapidly delivered followed by the rest of the infant's body atraumatically. The baby was vigorous. The cord was doubly clamped and cut and the was placed on the mother's abdomen for further care. The nurse assigned Apgars of 8 at 1 minute and 9 at 5 minutes. We then obtained cord blood. She received IV oxytocin and using gentle traction on the cord and countertraction the fundus I was able to easily deliver the placenta intact. Had a normal three-vessel cord. There were no perineal or vaginal lacerations. Estimated blood loss was approximately 200 cc. Placental Delivery Description: Spontaneous
[2022-12-09 19:57] VITALS: BP 132/73; PULSE 73; RESP 18; TEMP 36.8
[2022-12-10 04:47] VITALS: BP 116/72; PULSE 92; RESP 18; TEMP 36.7
[2022-12-10 07:27] LABS: Hematocrit 38.9 % (37.0-47.0)
[2022-12-10 08:00] VITALS: BP 113/71; PULSE 82; RESP 20; TEMP 36.5; O2SAT 98
--- NOTE | 2022-12-10 09:18 | EXP.ACUTE.PN ---
Subjective *Date: 12/10/22 *Time: 09:18 Interval history: She is doing very well this morning. She is eating and drinking and ambulating. She is bottlefeeding. Her lochia is normal. Medical Exam Vital signs and Labs for Last 24 Hours: Vital Signs Temp Pulse Resp BP 12/10/22 04:47 98.1 F 92 H 18 116/72 12/09/22 19:57 98.2 F 73 18 132/73 Laboratory Results - last 24 hr 12/10/22 07:09: Hgb 13.0, Hct 38.9 I & O for Labs for Last 24 Hours: Intake & Output 12/07/22 12/08/22 12/09/22 12/10/22 11:59 11:59 11:59 11:59 Weight 352 lb 15.996 oz Microbiology Reports for the Last 24 Hours: Microbiology 12/09/22 06:05 Urine,Clean Catch Urine Culture - Preliminary Head: Present normocephalic ENT: Present normal exam Neck: Present normal inspection Respiratory: Present normal respiratory effort; Absent accessory muscle use Assessment and Plan *Assessment and plan (1) Gestational diabetes mellitus (GDM): Status: Acute Qualifiers: Gestational diabetes mellitus control: diet-controlled Trimester: third trimester Qualified Code(s): O24.410 - Gestational diabetes mellitus in , diet controlled Category: Medical Code(s): O24.419 - Gestational diabetes mellitus in , unspecified control (2) Maternal obesity affecting , antepartum: Status: Acute Qualifiers: Obesity type affecting : severe obesity due to excess calories Qualified Code(s): O99.210 - Obesity complicating , unspecified trimester; E66.01 - Morbid (severe) obesity due to excess calories Category: Medical Code(s): O99.210 - Obesity complicating , unspecified trimester (3) Normal delivery: Status: Acute Category: Medical Code(s): O80 - Encounter for full-term uncomplicated delivery Plan She continues to do well this morning. We will plan to send her home tomorrow.
--- NOTE | 2022-12-10 14:48 | SW/DCPLANNER ---
I received a consult on this patient regarding: prior loss of last child and resources. male (France Araiza) was born yesterday 12/09/22. Patient stated that 's father is NOT involved. Patient will reside at [address] [place] [address]. Patient stated that her two other children (Dary Gao 08/20/13 and Jet Daniels 11/06/15). Patient stated she did have a Social Service involvement w/ her daughter: child was never removed and case is closed. Patient also stated that her last child is : [employer] Set[employer] placed children w/ grandparents for a month while investigating. Children were allowed back w/ mother when investigation was closed a month later. Patient did not have any charges for 's . Patient stated that she is established w/ WIC. Patient stated that she has the following items at home: crib, carseat, clothing, diapers and will be bottle feeding. Patient that PED MD will be Dr Castaneda and that she will have transportation to all follow up appointments. OB staff (Love) stated that patient is appropriate w/ . Patient did not have any further needs/questions at this time. Patient and are expected to discharge home tomorrow pending no setbacks.
--- NOTE | 2022-12-11 08:51 | EXP.DC.SUM ---
General Admission date:: 12/09/22 Discharge date: 12/11/22 HPI HPI HPI: She is a 32-year-old 5 para 3 aborta 1 who is 39 weeks gestational age. She has been followed for diet-controlled gestational diabetes. As result of that she is admitted for induction of labor at term. Hospital Course Hospital Course Hospital Course: She was started on IV oxytocin had her membranes ruptured. She progressed to full dilation and delivered spontaneously a liveborn male child at 11:36 AM in the morning of December 09, 2022. The baby weighed 7 pounds 13 ounces and was 19-1/2 inches long. He had Apgars of 8 at 1 minute and 9 at 5 minutes. She has done well and has remained afebrile throughout her hospitalization. She is eating and drinking and ambulating. She is bottlefeeding. Her lochia is normal. She had no perineal or vaginal lacerations. She has a positive blood, she is rubella immune and was group B streptococcus negative. 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 She is discharged home to follow-up with me in approximately 2 weeks time. She will continue with her vitamins and iron. She was given the usual instructions with respect to limiting her activity, driving and sexual activity. Her condition on discharge is stable and improved. Exam Data for Last 24 hours Vital signs and Labs for Last 24 Hours: Temp Pulse Resp BP Pulse Ox O2 Del Method 97.7 F 82 20 113/71 98 Room Air 12/10/22 08:00 12/10/22 08:00 12/10/22 08:00 12/10/22 08:00 12/10/22 08:00 12/10/22 08:00 I & O for Last 24 hours: Intake & Output 12/08/22 12/09/22 12/10/22 12/11/22 11:59 11:59 11:59 11:59 Weight 352 lb 15.996 oz Microbiology Reports for the Last 24 Hours: Microbiology 12/09/22 06:05 Urine,Clean Catch Urine Culture - Final Multiple organisms, suggests contamination. Constitutional Constitutional: no acute distress and morbidly obese *Routine HEENT Exam Head: Present normocephalic *Routine Neck Exam Neck: Present full ROM *Routine Respiratory Exam Respiratory: Present normal respiratory effort DS: Diagnosis Discharge Diagnosis (1) Gestational diabetes mellitus (GDM): Status: Acute Code(s): O24.419 - Gestational diabetes mellitus in , unspecified control Qualifiers: Gestational diabetes mellitus control: diet-controlled Trimester: third trimester Qualified Code(s): O24.410 - Gestational diabetes mellitus in , diet controlled (2) Maternal obesity affecting , antepartum: Status: Acute Code(s): O99.210 - Obesity complicating , unspecified trimester Qualifiers: Obesity type affecting : severe obesity due to excess calories Qualified Code(s): O99.210 - Obesity complicating , unspecified trimester; E66.01 - Morbid (severe) obesity due to excess calories (3) Normal delivery: Status: Acute Code(s): O80 - Encounter for full-term uncomplicated delivery Meds Home Medications and Allergies Home Medications Medication Instructions Recorded Confirmed Type ferrous sulfate 325 mg (65 mg 325 mg PO DAILY Supplement 12/09/22 12/09/22 History iron) tablet vit no.95-ferrous 1 tab PO DAILY Supplement 12/09/22 12/09/22 History fumarate 28 mg-folic acid 800 mcg tablet () New Prescriptions to Start Prescriptions: Allergies Allergy/AdvReac Type Severity Reaction Status Date / Time latex [LATEX] Allergy Mild I-ITCHING Verified 12/05/22 10:24 cinnamon [CINNAMON] Allergy Unknown Unknown Verified 12/05/22 10:24 allergy reaction methylprednisolone Allergy Unknown Unknown Verified 12/05/22 10:24 [METHYLPREDNISOLONE] allergy reaction onion [ONION] Allergy Unknown Unknown Verified 12/05/22 10:24 allergy reaction peanut Allergy Anaphylaxis Verified 12/05/22 10:24 shellfish derived Allergy Anaphylaxis V
[2022-12-11 09:39] VITALS: BP 130/81; PULSE 71; RESP 14; TEMP 36.5; O2SAT 98
== END 2022-12-11 13:30 | disposition home or self-care (01) | DRG 807 ==
PROVIDERS: Admitting Provider Nurse Practitioner Obstetrics & Gynecology; PCP Emergency Medicine; Visit Provider Nurse Practitioner Obstetrics & Gynecology
DX: O24.420 Gestational diabetes mellitus in childbirth, diet controlled (principal); Z37.0 Single live birth; O99.210 Obesity complicating pregnancy, unspecified trimester; E66.01 Morbid (severe) obesity due to excess calories; Z3A.39 39 weeks gestation of pregnancy; O99.334 Smoking (tobacco) complicating childbirth
CPT/HCPCS: 59409; 36415; 59025; 80305; 81001; 85014; 85018; 85025; 86850; 87086; 94761; C1758; G0283

== ENCOUNTER 2023-01-28 15:20 | Emergency (ER) | payer OTHER, SELFPAY ==
[2023-01-28 15:30] VITALS: BP 149/84; PULSE 97; RESP 18; TEMP 36.7; O2SAT 98; BMI 53.5
[2023-01-28 15:45] LABS: UTC Strep Screen (Rapid) Negative (Negative)
--- NOTE | 2023-01-28 15:47 | EXP.UTC ---
Discharge Plan Disposition Patient Disposition: Home, Self-Care Condition: Good Prescriptions Prescriptions: New amoxicillin-pot clavulanate 875-125 mg Tablet 1 tab PO Q12H Qty: 20 0RF Referrals Follow up/Referrals: Joe Wade MD [Primary Care Provider] - See instructions Activity Restrictions/Add. Instructions Additional Instructions/Restrictions: *Monitor Temp, Over the counter Motrin or Tylenol as directed/as needed Tylenol every 4 hours and Motrin every 6 hours (as long as your family doctor has told you that you can take it) for fever or pain. and straight to ER if unable to lower temp less than 101.0 after medication given *Warm salt water gargles may help to soothe the throat *Throat Lozenges? *Warm fluids like tea with honey may help to soothe the throat? *Sleep elevated *Humidifier/Vaporizer Your throat swab was sent for culture. Those results are typically sent to your primary care. Be sure to follow up in 2-3 days with your family doctor/primary care physician if no improvement so they can review those result and treat if necessary. If you don?t have a primary care doctor, I recommend you get one but in the mean time, you will have to return to a walk in clinic Follow up IMMEDIATELY for new or worsening symptoms or no Noticeable improvement over the next 48-72 hours. 911 for difficulty breathing or swallowing Clinical Impressions Clinical Impression: Otitis media Qualifiers: Otitis media type: unspecified Laterality: right Qualified Code(s): H66.91 - Otitis media, unspecified, right ear Instructions Patient Instructions: DI for Sinusitis, Middle Ear Infection Discharge ED Provider: María Espinoza [facility] [place] General Stated complaint: sore throat, LANDEROS cough Mode of Arrival: Ambulatory Source of Information: Patient Limitations: No Limitations Time Seen by Provider: 01/28/23 15:47 Description of Symptoms (Recalled from Triage Doc. by RN): PATIENT C/O SORE THROAT, COUGH, HEADACHE AND EAR ACHE SINCE FRIDAY HEENT Symptoms (Recalled from RN notes): Yes Resp Symptoms (Recalled from RN notes): Yes Skin Symptoms (Recalled from RN notes): No MS Symptoms (Recalled from RN notes): No Functional Status (Recalled from RN notes): WNL History of Present Illness Provider Complaint: Patient states that she started feeling bad last week and has got worse since Friday States that she has been having sore throat, bilateral ear pain and pressure, sore throat and cough States that today her throat was hurting worse and having pressure in her sinuses so she came in to get checked Related Data Previous Rx's Medication Instructions Recorded amoxicillin 875 mg-potassium 1 tab PO Q12H #20 tabs 01/28/23 clavulanate 125 mg tablet Allergies Allergy/AdvReac Type Severity Reaction Status Date / Time latex [LATEX] Allergy Mild I-ITCHING Verified 01/22/23 09:41 cinnamon [CINNAMON] Allergy Unknown Unknown Verified 01/22/23 09:41 allergy reaction methylprednisolone Allergy Unknown Unknown Verified 01/22/23 09:41 [METHYLPREDNISOLONE] allergy reaction onion [ONION] Allergy Unknown Unknown Verified 01/22/23 09:41 allergy reaction peanut Allergy Anaphylaxis Verified 01/22/23 09:41 shellfish derived Allergy Anaphylaxis Verified 01/22/23 09:41 Worker's Comp Is this a Worker's Comp case?: No [facility] Disclaimer: The information contained in this section may have been updated after the patient was seen, as this information can be updated by other users. Medical History Hypokalemia Low lying placenta with hemorrhage in second trimester, antepartum Maternal obesity affecting , antepartum Reactive airway disease Surgical History Hx of dilation and curettage Family History O
[2023-01-28 15:51] VITALS: BP 149/84; PULSE 97; RESP 18; TEMP 36.7; O2SAT 98
== END 2023-01-28 16:03 | disposition home or self-care (01) ==
PROVIDERS: Emergency Provider Nurse Practitioner; PCP Emergency Medicine
DX: H66.91 Otitis media, unspecified, right ear (principal); J01.90 Acute sinusitis, unspecified; F17.210 Nicotine dependence, cigarettes, uncomplicated; J45.909 Unspecified asthma, uncomplicated
CPT/HCPCS: 87880; 99212; 99214; G0463

== ENCOUNTER 2023-03-20 18:38 | Emergency (ER) | payer OTHER, SELFPAY ==
[2023-03-20 19:05] VITALS: BP 125/79; PULSE 98; RESP 18; TEMP 36.8; O2SAT 100; BMI 51.7
--- NOTE | 2023-03-20 19:21 | PC.NURSE ---
Swab collected, patient triaged and placed back in the lobby to await room at this time.
[2023-03-20 19:32] LABS: Coronavirus 19, PCR Not Detected (NotDetected); Influenza A, PCR Not Detected (NotDetected); Influenza B, PCR Not Detected (NotDetected)
--- NOTE | 2023-03-20 20:46 | ED_ITS ---
Discharge Plan Disposition Patient Disposition: Home, Self-Care Prescriptions Prescriptions: New ondansetron 4 mg tablet,disintegrating 4 mg PO Q8H 4 Days Qty: 12 0RF No Action amoxicillin-pot clavulanate 875-125 mg Tablet 1 tab PO Q12H Qty: 20 0RF Referrals Follow up/Referrals: Juan Manuel Jean DO [Primary Care Provider] - See instructions Clinical Impressions Clinical Impression: Acute viral syndrome Instructions Patient Instructions: DI for Viral Syndrome Discharge ED Provider: Fernanda Veliz General Adult HPI General Chief complaint: Nausea/Vomiting/Diarrhea Stated complaint: sore throat, LANDEROS ear acheV/D Time Seen by Provider: 03/20/23 20:06 Mode of Arrival: Ambulatory Source of Information: Patient Limitations: No Limitations Description of Symptoms (Recalled from ER Triage Doc. by RN): Patient reports N/V/D starting today. Emesis x 2, last being at 1830. Patient reports fatigue and nasal congestion. Daughter was sick yesterday with same symptoms. History of Present Illness HPI narrative: Patient reports N/V/D starting today. Emesis x 2, last being at 1830. Patient reports fatigue and nasal congestion. Daughter was sick yesterday with same symptoms. Patient notes that last week at [facility], multiple family members sick. Related Data Previous Rx's Medication Instructions Recorded amoxicillin 875 mg-potassium 1 tab PO Q12H #20 tabs 01/28/23 clavulanate 125 mg tablet ondansetron 4 mg disintegrating 4 mg PO Q8H 4 days #12 tabs 03/20/23 tablet Allergies Allergy/AdvReac Type Severity Reaction Status Date / Time latex [LATEX] Allergy Mild I-ITCHING Verified 01/22/23 09:41 cinnamon [CINNAMON] Allergy Unknown Unknown Verified 01/22/23 09:41 allergy reaction methylprednisolone Allergy Unknown Unknown Verified 01/22/23 09:41 [METHYLPREDNISOLONE] allergy reaction onion [ONION] Allergy Unknown Unknown Verified 01/22/23 09:41 allergy reaction peanut Allergy Anaphylaxis Verified 01/22/23 09:41 shellfish derived Allergy Anaphylaxis Verified 01/22/23 09:41 [facility] Disclaimer: The information contained in this section may have been updated after the patient was seen, as this information can be updated by other users. Medical History Hypokalemia Low lying placenta with hemorrhage in second trimester, antepartum Maternal obesity affecting , antepartum Reactive airway disease Surgical History Hx of dilation and curettage Family History Other Cancer Thyroid disorder Social History Smoking Status: Current every day smoker tobacco type: cigarettes alcohol intake: never substance use type: marijuana current occupational status: unemployed Travel in the last 8 weeks: None household members: spouse and children housing: house caffeine: Yes ROS Obtained: Yes All systems reviewed & no additional complaints except as documented Physical Exam General General appearance: alert and in no apparent distress Head Head exam: atraumatic, normocephalic and normal inspection Eye Eye exam: Present normal appearance, PERRL and EOMI; Absent scleral icterus or nystagmus ENT ENT exam: Present normal exam, mucous membranes moist and normal external ear exam Neck Neck exam: Present normal inspection, full ROM and trachea midline Chest Chest inspection: Present normal inspection and symmetric chest wall rise; Absent tenderness Respiratory Respiratory exam: Present normal lung sounds bilaterally; Absent respiratory distress, wheezes or accessory muscle use Cardiovascular Cardiovascular exam: Present regular rate, normal rhythm and normal heart sounds Abdominal Exam Abdominal exam: Present soft; Absent distention, tenderness, guarding, rebound, rigidity, trauma, ascites or pulsatile mass Extremities Exam Extremities exam: Present normal inspection and full ROM; Absent tenderness Back Exam Back exam: Present normal inspection and full ROM; Absent tenderness Neurological Exam Neurological exam: Present alert, oriented X3, normal gait and motor sensory deficit Psychiatric Psychiatric exam: Present normal affect and normal mood Skin Skin exam: Present warm, dry and normal color Medical Decision Making Medical Records Medical records reviewed: Yes I reviewed the patient's medical records. Chema Inquiry Pt receiving controlled substance: No Vital Signs: 03/20/23 19:05 Temperature 98.2 F Temperature Source Oral Pulse Rate [Left Radial] 98 H Respiratory Rate 18 Blood Pressure [Right Arm] 125/79 Blood Pressure Mean [Right Arm] 94 Blood Pressure Source [Right Arm] Automatic Cuff Blood Pressure Position [Right Arm] Sitting 02 Sat by Pulse Oximetry 100 Oxygen Delivery Method Room Air Lab Data Lab results reviewed: Yes I reviewed the patient's lab results. Lab Results 03/20/23 19:10: SARS-CoV-2 (PCR) Not detected, Influenza A Untype (PCR) Not detected, Influenza Type B (PCR) Not detected Orders (Tests/Meds): ORDERS Category Date Time Status Rapid PCR Covid and Flu A/B Stat Lab 03/20/23 19:10 Completed Medical Decision Narrative: In summary, Patient reports N/V/D starting today. Emesis x 2, last being at 18 30. Patient reports fatigue and nasal congestion. Daughter was sick yesterday with same symptoms. Patient notes that last week at [facility], multiple family members sick. Patient was afebrile, hemodynamically stable, in no respiratory distress, and nontoxic in appearance upon arrival and throughout the entire stay in the ED. Physical examination was unremarkable aside from congestion and rhinorrhea, including lungs CTAB, normal cardiac auscultation, benign abdominal exam with no focal TTP, and no acute neurological deficit. The differential diagnosis includes, but is not limited to, viral URI secondary to COVID, flu, RSV or other viral process, pneumonia, effusion, abscess. Comorbidities of the current condition include none. Given the HPI with no red flags, well-appearing nature of the patient, stable vitals, and reassuring physical examination, the need for in-depth laboratory or radiographic evaluation was deemed unnecessary at this time. Patient was swabbed for COVID, flu, RSV. I considered the utility of obtaining a chest x- ray, however given there were no focal lung findings on examination and the patient has been afebrile, decided to forego x-ray imaging. All ordered laboratory studies independently reviewed and interpreted by myself and pertinent for: - COVID FLU negative At this time, given unremarkable workup and/or symptomatic relief, as well as the fact that patient continued to remain well-appearing, it was felt that the patient was safe to be discharged home. I considered (and discussed through shared decision making) the utility of treatment with a prescription for Zofran and the patient was agreeable. The patient/parents were comfortable and in agreement with this plan. Patient instructed to follow up with [employer]/PCP. The patient/parents were given strict return precautions prior to being discharged from the emergency department. All questions were answered. Fernanda Veliz MD Emergency Medicine Critical Care Critical Care Time Critical Care Time: No
[2023-03-20 21:07] VITALS: BP 143/79; PULSE 88; RESP 19; TEMP 36.6; O2SAT 97
== END 2023-03-20 21:07 | disposition home or self-care (01) ==
PROVIDERS: Emergency Provider Emergency Medicine; PCP Internal Medicine
DX: R11.2 Nausea with vomiting, unspecified (principal); R19.7 Diarrhea, unspecified; R51.9 Headache, unspecified; R07.0 Pain in throat; R09.81 Nasal congestion; R53.83 Other fatigue; H92.09 Otalgia, unspecified ear; F17.210 Nicotine dependence, cigarettes, uncomplicated; J45.909 Unspecified asthma, uncomplicated; Z11.52 Encounter for screening for COVID-19
CPT/HCPCS: 87636; 99283

== ENCOUNTER 2023-07-22 17:24 | Emergency (ER) | payer OTHER, SELFPAY ==
[2023-07-22 17:40] VITALS: BP 133/86; PULSE 99; RESP 19; TEMP 37.2; O2SAT 96; BMI 52.4
[2023-07-22 17:55] LABS: UTC Influenza A Antigen Negative (Negative); UTC Influenza B Antigen Negative (Negative)
--- NOTE | 2023-07-22 18:06 | ED_ITS ---
Discharge Plan Disposition Patient Disposition: Home, Self-Care Condition: Good Prescriptions Prescriptions: New loratadine 10 mg tablet 10 mg PO DAILY Qty: 30 2RF guaifenesin 400 mg tablet 400 mg PO Q4H PRN (Reason: cough) Qty: 60 0RF Referrals Follow up/Referrals: Juan Manuel Jean DO [Primary Care Provider] - See instructions Clinical Impressions Clinical Impression: Acute upper respiratory infection Stand Alone Forms Stand Alone Forms: Work/School Release Instructions Patient Instructions: DI for Viral Upper Respiratory Infection -- Adult Discharge ED Provider: Patricia Chavez [facility] [place] HPI General Stated complaint: chills, painful breathing Mode of Arrival: Ambulatory Source of Information: Patient Limitations: No Limitations Time Seen by Provider: 07/22/23 18:00 Description of Symptoms (Recalled from Triage Doc. by RN): Pt's symptoms are chills, cough, runny nose, and lungs hurt when she breaths. HEENT Symptoms (Recalled from RN notes): Yes Resp Symptoms (Recalled from RN notes): No Skin Symptoms (Recalled from RN notes): No MS Symptoms (Recalled from RN notes): No Functional Status (Recalled from RN notes): n/a History of Present Illness Provider Complaint: Pt reports that they have changed where she works and she is now exposed to a lot of mold. She states that she has had a clear runny nose and a strong dry cough that hurts. Related Data Previous Rx's Medication Instructions Recorded guaifenesin 400 mg tablet 400 mg PO Q4H PRN cough #60 tabs 07/22/23 loratadine 10 mg tablet 10 mg PO DAILY #30 tabs 07/22/23 Allergies Allergy/AdvReac Type Severity Reaction Status Date / Time latex [LATEX] Allergy Mild I-ITCHING Verified 07/22/23 17:50 cinnamon [CINNAMON] Allergy Unknown Unknown Verified 07/22/23 17:50 allergy reaction methylprednisolone Allergy Unknown Unknown Verified 07/22/23 17:50 [METHYLPREDNISOLONE] allergy reaction onion [ONION] Allergy Unknown Unknown Verified 07/22/23 17:50 allergy reaction peanut Allergy Anaphylaxis Verified 07/22/23 17:50 shellfish derived Allergy Anaphylaxis Verified 07/22/23 17:50 Worker's Comp Is this a Worker's Comp case?: No [facility] Disclaimer: The information contained in this section may have been updated after the patient was seen, as this information can be updated by other users. Medical History Hypokalemia Low lying placenta with hemorrhage in second trimester, antepartum Maternal obesity affecting , antepartum Reactive airway disease Surgical History Hx of dilation and curettage Family History Other Cancer Thyroid disorder Social History Smoking Status: Current every day smoker tobacco type: cigarettes alcohol intake: never substance use type: marijuana current occupational status: unemployed Travel in the last 8 weeks: None household members: spouse and children housing: house caffeine: Yes ROS Obtained: Yes All systems reviewed & no additional complaints except as documented Constitutional Constitutional: Reports system reviewed and no additional complaints, except as documented, Reports headache(s) and Reports malaise Eyes Eyes: Reports system reviewed and no additional complaints, except as documented ENT Ears, Nose, Mouth, and Throat: Reports system reviewed and no additional complaints, except as documented, Reports headache(s), Reports nasal congestion and Reports nasal discharge Cardiovascular Cardiovascular: Reports system reviewed and no additional complaints, except as documented Respiratory Respiratory: Reports system reviewed and no additional complaints, except as documented, Reports non-productive cough and Reports pain with cough Gastrointestinal Gastrointestingal: Reports system reviewed and no additional complaints, except as documented Genitourinary Female Genitourinary: Reports system reviewed and no additional complaints, except as documented Musculoskeletal Musculoskeletal: Reports system reviewed and no additional complaints, except as documented Integumentary/Breasts Skin/Breast: Reports system reviewed and no additional complaints, except as documented Neurologic Neurologic: Reports system reviewed and no additional complaints, except as documented and Reports headache(s) Endocrine Endocrine: Reports system reviewed and no additional complaints, except as do cumented Hematologic/Lymphatic Henatologic/Lymphatic: Reports system reviewed and no additional complaints, except as documented Allergic/Immunologic Allergic/Immunologic: Reports system reviewed and no additional complaints, except as documented Physical Exam General General appearance: alert Comment: ill appearing Head Head exam: atraumatic and normocephalic Eye Eye exam: Present normal appearance Expanded ENT Exam External ear exam: Present normal external inspection Nose exam: Absent sinus tenderness Nasal speculum exam: Bilateral: other (clear drainage) Mouth exam: Present normal external inspection Teeth exam: Present normal inspection Throat exam: Present normal inspection Neck Neck exam: Present normal inspection Chest Chest inspection: Present normal inspection and symmetric chest wall rise Respiratory Respiratory exam: Present normal lung sounds bilaterally Cardiovascular Cardiovascular exam: Present regular rate and normal rhythm Abdominal Exam Abdominal exam: Present soft Extremities Exam Extremities exam: Present normal inspection Back Exam Back exam: Present normal inspection Neurological Exam Neurological exam: Present alert and oriented X3 Psychiatric Psychiatric exam: Present normal affect and normal mood Skin Skin exam: Present warm, dry and intact Lymphatic Lymphatic Findings: no adenopathy Medical Decision Making Chema Inquiry Pt receiving controlled substance: No Chema was queried for this patient: No Vital Signs: 07/22/23 17:40 Temperature 98.9 F Temperature Source Oral Pulse Rate [Right Radial] 99 H Respiratory Rate 19 Blood Pressure [Right Arm] 133/86 Blood Pressure Mean [Right Arm] 101 Blood Pressure Source [Right Arm] Automatic Cuff Blood Pressure Position [Right Arm] Sitting 02 Sat by Pulse Oximetry 96 Oxygen Delivery Method Room Air Lab Data Lab Results 07/22/23 17:37: Influenza Type A Ag Negative, Influenza Type B Ag Negative Orders (Tests/Meds): ORDERS Category Date Time Status Full Resp Panel w/COVID ([facility]) Routine Lab 07/22/23 17:59 Ordered
[2023-07-22 18:25] VITALS: BP 133/86; PULSE 99; RESP 18; TEMP 37.2; O2SAT 96
[2023-07-22 18:28] LABS: Adenovirus,PCR Not Detected (NotDetected); Coronavirus 229E Not Detected (NotDetected); Coronavirus NL63 Not Detected (NotDetected); Coronavirus OC43 Not Detected (NotDetected); Coronovirus HKU1,PCR Not Detected (NotDetected); Human Metapneumovirus Not Detected (NotDetected); Influenza A, PCR Not Detected (NotDetected); Influenza AH1, 2009 Not Detected (NotDetected); Influenza AH1, PCR Not Detected (NotDetected); Influenza AH3,PCR Not Detected (NotDetected); Influenza B, PCR Not Detected (NotDetected); Parainfluenza 1, PCR Not Detected (NotDetected); Parainfluenza 2, PCR Not Detected (NotDetected); Parainfluenza 3, PCR Not Detected (NotDetected); Parainfluenza 4, PCR Not Detected (NotDetected); Respiratory Syncytial Virus Not Detected (NotDetected)
[2023-07-22 21:52] LABS: Coronavirus 19, PCR Detected (NotDetected); Rhinovirus/Enterovirus Detected (NotDetected)
== END 2023-07-22 18:25 | disposition home or self-care (01) ==
PROVIDERS: Emergency Provider Nurse Practitioner Family; PCP Internal Medicine
DX: U07.1 COVID-19 (principal); R07.1 Chest pain on breathing; R05.9 Cough, unspecified; R09.81 Nasal congestion; F17.210 Nicotine dependence, cigarettes, uncomplicated
CPT/HCPCS: 87632; 87635; 87804; 99212; 99214; G0463

== ENCOUNTER 2023-08-05 08:06 | Outpatient (CLI) | payer OTHER, SELFPAY ==
[2023-08-05 10:51] LABS: HCG,Quantitative 57700 mIU/ml (0-5.42)
[2023-08-06 10:31] LABS: Progesterone 10.9 ng/mL (.)
== END 2023-08-05 23:59 | disposition home or self-care (01) ==
PROVIDERS: PCP Internal Medicine; Visit Provider Nurse Practitioner Obstetrics & Gynecology
DX: N92.6 Irregular menstruation, unspecified (principal); Z32.00 Encounter for pregnancy test, result unknown
CPT/HCPCS: 36415; 84144; 84702

== ENCOUNTER 2023-08-19 11:12 | Outpatient (CLI) | payer OTHER, SELFPAY | END 2023-08-19 23:59 | disposition home or self-care (01) | LOC: LAB.DROPOF 08-21 11:12 | PROVIDERS: PCP Nurse Practitioner Obstetrics & Gynecology; Visit Provider Nurse Practitioner Obstetrics & Gynecology | DX: O23.41 Unspecified infection of urinary tract in pregnancy, first trimester (principal); Z3A.13 13 weeks gestation of pregnancy | CPT/HCPCS: 87086 ==

== ENCOUNTER 2023-08-26 13:44 | Outpatient (CLI) | payer OTHER, SELFPAY ==
--- NOTE | 2023-08-26 13:44 | US_ITS ---
PROCEDURE: US OB >= 14 WEEKS FETUS CLINICAL INDICATION: Dates/Confirmation COMPARISON: No exams were available for comparison FINDINGS: Transabdominal sonographic images of the uterus were obtained. From her last menstrual period she is 18weeks 1day. An intrauterine gestational sac is present with a pole with a crown-rump length of 10.4cm Viable fetus in the breech presentation with an anterior placenta grade 1. The fluid is within normal limits. BPD = 16 weeks 2 days HC = 16 weeks 2 days AC = 16 weeks 1 day FL = 16 weeks 0 days This correlates to a gestational age of 16weeks 2days. heart tones are present with an FHR of 152bpm. Cervix measures 5.0 cm. IMPRESSION: 1. Viable fetus in the breech presentation with an anterior placenta grade 1. 2. The fluid is within normal limits. 3. The fetus measures 16 weeks 2 days and her due date should be revised to reflect this. Her revised PORSCHE will be 02/08/2024. 4. Limited anatomical scan appears normal. Repeat ultrasound in 4 weeks. Dictated by: Andres Jeff MD 08/26/2023 15:10 Andres Jeff MD in [place] 08/26/2023 15:10
== END 2023-08-26 23:59 | disposition home or self-care (01) ==
LOC: RAD 13:44
PROVIDERS: PCP Internal Medicine; Visit Provider Nurse Practitioner Obstetrics & Gynecology
DX: Z3A.16 16 weeks gestation of pregnancy (principal); O26.892 Other specified pregnancy related conditions, second trimester
CPT/HCPCS: 76805

== ENCOUNTER 2023-09-19 12:30 | Outpatient (CLI) | payer OTHER, SELFPAY ==
[2023-09-19 13:07] LABS: Basophils % 0.3 % (0.1-2.0); Eosinophils # 0.3 K/mm3 (0.0-0.4); Eosinophils % 2.8 % (0.1-12.0); Hematocrit 37.2 % (37.0-47.0); Hemoglobin 12.7 g/dL (12.2-16.2); Lymphocytes # 2.3 K/mm3 (0.7-4.5); Lymphocytes % 25.3 % (10-50); Mean Corpuscular HGB Conc 34.2 g/dL (31.8-35.4); Mean Corpuscular Hemoglobin 30.5 pg (27.0-31.2); Mean Corpuscular Volume 89.2 fl (81-99); Mean Platelet Volume 9.8 fl (7.4-10.4); Monocytes # 0.3 K/mm3 (0.1-1.0); Monocytes % 3.3 % (1.7-9.3); Neutrophils # 6.4 K/mm3 (1.8-7.8); Neutrophils % 68.3 % (37.0-80.0); Platelet Count 168 K/mm3 (142-424); Red Blood Count 4.17 M/mm3 (4.20-5.40); Red Cell Distribution Width 14.8 % (11.5-17.5); White Blood Count 9.3 K/mm3 (4.8-10.8)
[2023-09-20 08:17] LABS: Rubella Antibodies, IgG <0.90 index (Immune >0.99)
[2023-09-20 09:42] LABS: HCV Ab Non Reactive (Non Reactive); HIV Screen 4th Generation wRfx Non Reactive (Non Reactive); Hepatitis B Surface Antigen Negative (Negative)
[2023-09-20 13:58] LABS: Rapid Plasma Reagin Ab Titer Non Reactive titer (NonRea<1:1)
== END 2023-09-19 23:59 | disposition home or self-care (01) ==
LOC: LAB 12:31
PROVIDERS: PCP Internal Medicine; Visit Provider Nurse Practitioner Obstetrics & Gynecology
DX: O26.892 Other specified pregnancy related conditions, second trimester (principal); O99.212 Obesity complicating pregnancy, second trimester; Z3A.19 19 weeks gestation of pregnancy
CPT/HCPCS: 36415; 85025; 86593; 86703; 86762; 86850; 87340; G0432

== ENCOUNTER 2023-10-03 14:54 | Outpatient (CLI) | payer OTHER, SELFPAY ==
--- NOTE | 2023-10-03 14:55 | US_ITS ---
PROCEDURE: US OB /MATERNAL DETAIL CLINICAL INDICATION: 20 wk Anatomy Scan-US OB Complete COMPARISON: US US OB >= 14 WEEKS FETUS from 08/26/2023 FINDINGS: Transabdominal sonographic images of the pelvis were obtained. From her established due date she is 21 weeks 4 days. Single viable intrauterine gestation. Breech position. Placenta: Anteriorplacenta grade 1. There is an average amount of fluid. The cervix appears satisfactory. Closed and measuring 3.26 cm in length. Complete survey performed and was unremarkable on the submitted images as in PACS. No discrete anomalies identified on survey imaging by technologist. Active fetus. Three-vessel cord with satisfactory umbilical cord insertion. 4- chamber heart noted. Situs, aortic arch, LVOT, RVOT, three-vessel view appear normal. Survey of brain & ventricles Unremarkable. Cerebellum, thalamus, choroid plexus, cisterna magna appear normal. Face and neck survey unremarkable. Profile, nasion, lips and nose appeared normal. Diaphragm and chest views unremarkable. Abdomen: Both kidneys noted and unremarkable. Stomach and bladder noted and satisfactory. Spine: Survey of the spine satisfactory with no anomalies identified nor imaged. Cervical, thoracic, lower spine appear normal. Both arms and legs noted. Amniotic Fluid: Adequate. MVP 3.67 cm. Measurements: Average ultrasound age 21weeks 1day. Estimated due date by ultrasound age 1002/12/2024. Estimated weight 399g BPD = 21weeks 0 days HC = 21weeks 0 days AC = 21weeks 5days FL = 20weeks 4days Growth Percentile= 21 Heart Rate = 144bpm Cerebellum = 21weeks 1day Humerus = 21weeks HC/AC is 1.13 FL/BPD is 0.68 FL/AC is 0.2 IMPRESSION: 1. Viable fetus in the breech presentation with an anterior placenta grade 1. Difficult exam due to maternal obesity. 2. The fluid is within normal limits. 3. Anatomical scan appears normal. 4. biometry is consistent with the dates. Dictated by: Andres Jeff MD 10/03/2023 21:35 Andres Jeff MD in [place] 10/03/2023 21:35
== END 2023-10-03 23:59 | disposition home or self-care (01) ==
LOC: RAD 14:55
PROVIDERS: PCP Internal Medicine; Visit Provider Nurse Practitioner Obstetrics & Gynecology
DX: Z36.3 Encounter for antenatal screening for malformations (principal); O24.410 Gestational diabetes mellitus in pregnancy, diet controlled; O99.212 Obesity complicating pregnancy, second trimester; E66.01 Morbid (severe) obesity due to excess calories; Z3A.20 20 weeks gestation of pregnancy
CPT/HCPCS: 76811

== ENCOUNTER 2023-10-04 00:33 | Emergency (ER) | payer OTHER, SELFPAY ==
[2023-10-04 00:43] VITALS: BP 130/85; PULSE 102; RESP 14; TEMP 36.9; O2SAT 96; BMI 53.1
--- NOTE | 2023-10-04 00:43 | ED_ITS ---
Discharge Plan Disposition Patient Disposition: Home, Self-Care Condition: Good Prescriptions Prescriptions: New nitrofurantoin monohyd/m-cryst [Macrobid] 100 mg capsule 100 mg PO BID 5 Days Qty: 10 0RF Rx Instructions: must administer with a meal/food No Action Classic 28 mg iron- 800 mcg tablet 1 tab PO DAILY Qty: 30 11RF ferrous sulfate 325 mg (65 mg iron) tablet 325 mg PO DAILY Qty: 30 6RF Referrals Follow up/Referrals: Juan Manuel Jean DO [Primary Care Provider] - See instructions Activity Restrictions/Add. Instructions Additional Instructions/Restrictions: You were evaluated in the ER. You are appropriate for discharge at this time. Take the prescribed antibiotics as directed, do not skip doses, do not stop taking them early. Drink plenty of water, I recommend a goal of 100 ounces of water daily for good hydration. Make sure you are eating a balanced diet. Follow-up with your OB as scheduled. Return to the ER with new, worsening, or otherwise concerning symptoms. Clinical Impressions Clinical Impression: Light-headedness Discharge ED Provider: Tasia Rivera General Adult HPI General Chief complaint: Dizziness Stated complaint: chills and shakes Time Seen by Provider: 10/04/23 00:42 History of Present Illness HPI narrative: 32-year-old G5, P4 female currently 21 weeks presents to the ER for concerns of general malaise, chills, feeling lightheaded when she stands. Patient denies any chest pain, difficulty breathing, abdominal pain, dysuria, hematuria, vaginal bleeding or leakage, or any other concerns at this time. She states she has had nausea without vomiting, no diarrhea, her last appointment with her OB was last week for routine checkup and she reports everything was normal. Review of most recent [employer] MANAGER note demonstrates patient has diagnosis of obesity complicating , but otherwise is doing well and Dr. Jeff anticipates performing anatomy scan in the coming weeks. Patient reports gestational diabetes with her previous but she has not yet had her glucose challenge. She reports good movement and states that she had ultrasound done earlier today. Related Data Previous Rx's Medication Instructions Recorded ferrous sulfate 325 mg (65 mg 325 mg PO DAILY #30 tabs 09/22/23 iron) tablet vits no.126-ferrous fum 1 tab PO DAILY #30 tabs 09/22/23 28 mg iron-folic acid 800 mcg tablet (Classic ) nitrofurantoin 100 mg PO BID 5 days #10 caps 10/04/23 monohydrate/macrocrystals 100 mg capsule (Macrobid) Allergies Allergy/AdvReac Type Severity Reaction Status Date / Time latex [LATEX] Allergy Mild I-ITCHING Verified 09/22/23 11:15 cinnamon [CINNAMON] Allergy Unknown Unknown Verified 09/22/23 11:15 allergy reaction methylprednisolone Allergy Unknown Unknown Verified 09/22/23 11:15 [METHYLPREDNISOLONE] allergy reaction onion [ONION] Allergy Unknown Unknown Verified 09/22/23 11:15 allergy reaction peanut Allergy Anaphylaxis Verified 09/22/23 11:15 shellfish derived Allergy Anaphylaxis Verified 09/22/23 11:15 [facility] Disclaimer: The information contained in this section may have been updated after the patient was seen, as this information can be updated by other users. Medical History Low lying placenta with hemorrhage in second trimester, antepartum Maternal obesity affecting , antepartum Hypokalemia Reactive airway disease Surgical History Hx of dilation and curettage Family History Other Cancer Thyroid disorder Social History Smoking Status: Former smoker tobacco type: cigarettes alcohol intake: never substance use type: marijuana current occupational status: unemployed Travel in the last 8 weeks: None household members: spouse and children housing: house caffeine: Yes ROS Obtained: Yes All systems reviewed & no additional complaints except as documented Constitutional Constitutional: Reports chills, Reports fatigue, Denies headache(s) and Denies night sweats Eyes Eyes: Denies blurry vision ENT Ears, Nose, Mouth, and Throat: Reports dizziness (Described as lightheadedness with standing), Denies headache(s), Denies nasal congestion and Denies sore throat Cardiovascular Cardiovascular: Denies chest pain, Denies dyspnea, Denies palpitations and Denies syncope Respiratory Respiratory: Denies cough, Denies dyspnea and Denies wheezing Gastrointestinal Gastrointestingal: Reports nausea; Denies diarrhea or vomiting Genitourinary Female Genitourinary: Denies dysuria, Denies hematuria and Denies vaginal discharge Neurologic Neurologic: Reports dizziness (Described as lightheadedness with standing), Denies headache(s) and Denies syncope Endocrine Endocrine: Reports fatigue and Denies palpitations Allergic/Immunologic Allergic/Immunologic: Denies wheezing Physical Exam General General appearance: alert and obese Head Head exam: atraumatic and normocephalic Eye Eye exam: Present PERRL and EOMI ENT ENT exam: Present mucous membranes moist Neck Neck exam: Present normal inspection and full ROM Chest Chest inspection: Present symmetric chest wall rise Respiratory Respiratory exam: Present normal lung sounds bilaterally; Absent respiratory distress, wheezes or stridor Cardiovascular Cardiovascular exam: Present normal rhythm and tachycardia (Slight, rate 102 on my exam) Abdominal Exam Abdominal exam: Present soft; Absent distention or tenderness Extremities Exam Extremities exam: Present full ROM; Absent tenderness, edema or calf tenderness Neurological Exam Neurological exam: Present alert, oriented X3, CN II-XII intact, normal gait and other (No nystagmus, normal coordination); Absent motor sensory deficit Psychiatric Psychiatric exam: Present normal affect and normal mood Skin Skin exam: Present warm and dry Medical Decision Making Medical Records Medical records reviewed: Yes I reviewed the patient's medical records. MR Comment: See HPI for details of most recent OB note reviewed [place] Inquiry Pt receiving controlled substance: No Vital Signs: 10/04/23 00:43 10/04/23 01:04 Temperature 98.4 F Temperature Source Oral Pulse Rate [Orthostatic Lying Left] 105 H Pulse Rate [Orthostatic Sitting Left] 95 H Pulse Rate [Orthostatic Standing Left] 104 H Pulse Rate [Right Brachial] 102 H Respiratory Rate 14 Blood Pressure [Orthostatic Lying Right Arm] 130/85 Blood Pressure [Orthostatic Sitting Right Arm] 122/80 Blood Pressure [Orthostatic Standing Right Arm] 147/98 H Blood Pressure [Right Arm] 130/85 Blood Pressure Mean [Right Arm] 100 Blood Pressure Source [Right Arm] Automatic Cuff Blood Pressure Position [Right Arm] Sitting 02 Sat by Pulse Oximetry 96 Oxygen Delivery Method Room Air Lab Data Lab Results 10/04/23 00:50: WBC 14.9 H, RBC 4.52, Hgb 13.7, Hct 41.4, MCV 91.7, MCH 30.4, MCHC 33.2, RDW 14.7, Plt Count 188, MPV 9.3, Neut % (Auto) 75.0, Lymph % (Auto) 18.5, Phelps % (Auto) 4.4, Eos % (Auto) 1.5, Baso % (Auto) 0.5, Neut # (Auto) 11.2 H, Lymph # (Auto) 2.8, Phelps # (Auto) 0.7, Eos # (Auto) 0.2, Baso # (Auto) 0.1, Sodium 138, Potassium 3.2 L, Chloride 106, Carbon Dioxide 23, Anion Gap 12.2, BUN 10, Creatinine 0.60, Estimated Creat Clear 138, Estimated GFR 117, Est GFR ( Amer) 142, Glucose 85, Calcium 9.2, Total Bilirubin 0.5, AST 23, ALT 20, Alkaline Phosphatase 104, Total Protein 7.2, Albumin 3.8, Globulin 3.4 H, Albumin/Globulin Ratio 1.1 10/04/23 01:00: SARS-CoV-2 (PCR) Not detected, Influenza A Untype (PCR) Not detected, Influenza Type B (PCR) Not detected 10/04/23 01:13: Urine Color Yellow, Urine Appearance Sl cloudy, Urine pH 6.0, Ur Specific [place] >= 1.030, Urine Protein Trace, Urine Glucose (UA) Negative, Urine Ketones Negative, Urine Blood Negative, Urine Nitrate Negative, Urine Bilirubin 1+ A, Urine Urobilinogen 1.0, Ur Leukocyte Esterase Negative, Urine RBC None, Urine WBC 5-10, Ur Squamous Epith Cells Occasional, Urine Bacteria 2+, Urine Mucus 1+ 10/04/23 00:50 10/04/23 00:50 Orders (Tests/Meds): ED MEDICATIONS Discontinued Medications Generic Name Dose Route Start Last Admin Trade Name Freq PRN Reason Stop Dose Admin Lactated Ringer's 1,000 mls @ 999 mls/hr 10/04/23 00:42 10/04/23 00:49 Lactated Ringer's 1000 Ml Bag IV 10/04/23 01:42 999 mls/hr .Q1H1M ONE Administration Potassium Chloride 20 meq 10/04/23 01:16 10/04/23 01:22 Potassium Chloride 20meq Tab PO 10/04/23 01:17 20 meq ONCE ONE Administration ORDERS Category Date Time Status CBC w/Auto Diff [Complete Blood Count Auto Diff] Stat Lab 10/04/23 00:50 Completed CMP [Comprehensive Metabolic Panel] Stat Lab 10/04/23 00:50 Completed Rapid PCR Covid and Flu A/B Stat Lab 10/04/23 01:00 Completed UA [Urinalysis and Microscopic] Stat Lab 10/04/23 01:13 Completed Urine Culture Stat Micro 10/04/23 01:13 Received Medical Decision Narrative: In summary, this 32-year-old female currently 21 weeks , G5, P4 presents to the emergency department today with concerns of generalized malaise, chills, lightheadedness with standing. On initial evaluation patient is slightly tachycardic but hemodynamically stable, afebrile, lungs clear to auscultation bilaterally, no pitting edema, no calf tenderness, 99% on room air, resting comfortably, abdominal exam benign. Differential diagnosis includes but is not limited to viral syndrome, dehydration, asymptomatic bacteriuria, orthostatic hypotension. Patient does not demonstrate any findings concerning for intracranial abnormality though this was considered. Based on these concerns, I ordered CBC, CMP, viral swab, EKG to assess for arrhythmia, interval abnormalities, or arrhythmogenic abnormalities (she has no chest pain or shortness of breath, I do not suspect ACS), urinalysis. Orthostatic vitals are reassuring since patient does not have significant drop in her systolic blood pressure or significant elevation in her heart rate. ECG personally interpreted demonstrates normal sinus rhythm, rate 94, normal axis, IA normal at 132, QTc normal at 413, no STEMI, no WPW, no Brugada, no evidence of HCM. Patient received 1 L IV fluids for treatment. Labs personally reviewed demonstrate mild leukocytosis WBC 14.9, nonactionable, no anemia hemoglobin is normal at 13.7, platelets normal at 188, CMP with trace hypokalemia, patient is receiving oral repletion, no findings of kidney or liver dysfunction. Negative for COVID, flu. UA does demonstrate findings of 5-10 WBCs as well as bacteria present, there are few squamous cells which increases the likelihood of some of these findings being related to contamination, however given the risks of asymptomatic bacteriuria in , will treat with Macrobid. On reassessment patient continues to be stable. She feels improved after IV fluids and her heart rate has improved. She is appropriate for discharge at this time. Patient was prescribed Macrobid. Patient was given instructions on symptomatic management, encouraged her to drink plenty of water to decrease lightheadedness, follow up instructions, and return precautions for the emergency department. Patient indicated understanding and was discharged in stable condition. Critical Care Critical Care Time Critical Care Time: No
[2023-10-04] MEDS: LACTATED RINGERS 1000ML 1,000 ML 999 ML IV (00:49)
--- NOTE | 2023-10-04 00:58 | ECG_ITS ---
APPROVED REPORT Exam: Resting ECG HR:94 bpm ECG Measurements Heart Rate 94 AXES MO 132 P 61 QRSd 86 QRS 55 QT 362 T 23 QTc 413 Conclusion SINUS RHYTHM NORMAL ECG Electronically signed by : RAJIV WALLACE, 10/04/2023 07:17:57
[2023-10-04 01:04] VITALS: BP 122/80; BP 130/85; BP 147/98; PULSE 104; PULSE 105; PULSE 95
[2023-10-04 01:05] LABS: Alanine Aminotransferase 20 U/L (12-78); Albumin Level 3.8 g/dl (3.5-5.0); Albumin/Globulin Ratio 1.1 (1.1-1.8); Alkaline Phosphatase 104 U/L (38-126); Anion Gap 12.2 mEq/L (5-15); Aspartate Amino Transferase 23 U/L (14-36); Basophils # 0.1 K/mm3 (0-0.2); Basophils % 0.5 % (0.1-2.0); Bilirubin,Total 0.5 mg/dl (0.2-1.3); Blood Urea Nitrogen 10 mg/dl (7-17); Calcium 9.2 mg/dl (8.4-10.2); Carbon Dioxide 23 mmol/L (22.0-30.0); Chloride 106 mmol/L (98-107); Creatinine Clearance Estimated 138 mL/min (50-200); Eosinophils # 0.2 K/mm3 (0.0-0.4); Eosinophils % 1.5 % (0.1-12.0); Estimated Glomerular Filt Rate 117 ml/min (>60); GFR (African American) 142 ML/MIN (>60); Globulin 3.4 g/dL (1.3-3.2); Glucose 85 mg/dl (74-100); Hematocrit 41.4 % (37.0-47.0); Hemoglobin 13.7 g/dL (12.2-16.2); Lymphocytes # 2.8 K/mm3 (0.7-4.5); Lymphocytes % 18.5 % (10-50); Mean Corpuscular HGB Conc 33.2 g/dL (31.8-35.4); Mean Corpuscular Hemoglobin 30.4 pg (27.0-31.2); Mean Corpuscular Volume 91.7 fl (81-99); Mean Platelet Volume 9.3 fl (7.4-10.4); Monocytes # 0.7 K/mm3 (0.1-1.0); Monocytes % 4.4 % (1.7-9.3); Neutrophils # 11.2 K/mm3 (1.8-7.8); Platelet Count 188 K/mm3 (142-424); Potassium 3.2 mmoL/L (3.5-5.1); Red Blood Count 4.52 M/mm3 (4.20-5.40); Red Cell Distribution Width 14.7 % (11.5-17.5); Sodium 138 mmol/L (136-145); Total Protein,Serum 7.2 g/dl (6.3-8.2); White Blood Count 14.9 K/mm3 (4.8-10.8)
[2023-10-04 01:05] LABS: Coronavirus 19, PCR Not Detected (NotDetected); Influenza A, PCR Not Detected (NotDetected); Influenza B, PCR Not Detected (NotDetected)
[2023-10-04 01:17] LABS: Microscopic, Urine URINE MICROSCOPIC (MICROSCOPIC)
[2023-10-04 01:18] LABS: Appearance,Urine SL CLOUDY (Clear); Blood, Urine Negative (Negative); Color,Urine YELLOW (Yellow); Glucose,Urine (UA) Negative (Negative); Ketones,Urine Negative (Negative); Leukocyte Esterase,Urine Negative (Negative); Nitrate,Urine Negative (Negative); Protein,Urine TRACE (Negative); Specific Gravity, Urine >= 1.030 (1.005-1.030)
[2023-10-04] MEDS: POTASSIUM CHLORIDE 20MEQ TAB 20 MEQ PO (01:22)
[2023-10-04 01:26] LABS: Bilirubin,Urine 1+ (Negative)
[2023-10-04 01:29] LABS: Bacteria,Urine 2+ /lpf; Mucus,Urine 1+ /lpf; Squamous Epithelial Cell,Urine Occasional #/hpf (0-5)
[2023-10-04 02:00] VITALS: BP 129/76; PULSE 89; O2SAT 100
--- NOTE | 2023-10-04 02:05 | PC.NURSE ---
Pt states she is no longer dizzy and feeling a little better.
[2023-10-04 02:22] VITALS: BP 129/76; PULSE 90; RESP 16; TEMP 36.8; O2SAT 100
--- NOTE | 2023-10-04 02:29 | PC.NURSE ---
[facility] to [facility] patient request at this time.
== END 2023-10-04 02:29 | disposition home or self-care (01) ==
PROVIDERS: Emergency Provider Emergency Medicine; PCP Internal Medicine
DX: O26.892 Other specified pregnancy related conditions, second trimester; E87.6 Hypokalemia; R42 Dizziness and giddiness; N39.0 Urinary tract infection, site not specified; B96.89 Other specified bacterial agents as the cause of diseases classified elsewhere; Z3A.21 21 weeks gestation of pregnancy
CPT/HCPCS: 80053; 81001; 85025; 87086; 87636; 93005; 96360; 99284; J7120

== ENCOUNTER 2023-11-27 08:19 | Outpatient (CLI) | payer OTHER, SELFPAY ==
[2023-11-27 09:13] LABS: Basophils % 0.2 % (0.1-2.0); Eosinophils # 0.4 K/mm3 (0.0-0.4); Eosinophils % 3.7 % (0.1-12.0); Hematocrit 36.7 % (37.0-47.0); Hemoglobin 12.8 g/dL (12.2-16.2); Lymphocytes # 2.6 K/mm3 (0.7-4.5); Lymphocytes % 23.8 % (10-50); Mean Corpuscular HGB Conc 34.8 g/dL (31.8-35.4); Mean Corpuscular Hemoglobin 31.6 pg (27.0-31.2); Mean Corpuscular Volume 90.7 fl (81-99); Mean Platelet Volume 9.4 fl (7.4-10.4); Monocytes # 0.6 K/mm3 (0.1-1.0); Monocytes % 5.8 % (1.7-9.3); Neutrophils # 7.3 K/mm3 (1.8-7.8); Neutrophils % 66.5 % (37.0-80.0); Platelet Count 180 K/mm3 (142-424); Red Blood Count 4.05 M/mm3 (4.20-5.40); Red Cell Distribution Width 14.4 % (11.5-17.5)
[2023-11-27 09:48] LABS: Glucose,Fasting 82 mg/dl (74-100)
[2023-11-27 10:42] LABS: Glucose 1 Hour 131 mg/dL (74-100)
== END 2023-11-27 23:59 | disposition home or self-care (01) ==
LOC: LAB 08:21
PROVIDERS: PCP Internal Medicine; Visit Provider Nurse Practitioner Obstetrics & Gynecology
DX: Z34.90 Encounter for supervision of normal pregnancy, unspecified, unspecified trimester (principal)
CPT/HCPCS: 36415; 82951; 85025

== ENCOUNTER 2024-01-15 14:16 | Outpatient (CLI) | payer OTHER, SELFPAY | END 2024-01-15 23:59 | disposition home or self-care (01) | LOC: LAB.DROPOF 01-16 14:43 | PROVIDERS: PCP Nurse Practitioner Obstetrics & Gynecology; Visit Provider Nurse Practitioner Obstetrics & Gynecology | DX: Z34.90 Encounter for supervision of normal pregnancy, unspecified, unspecified trimester (principal) | CPT/HCPCS: 86403 ==

== ENCOUNTER 2024-01-16 13:23 | Outpatient (CLI) | payer OTHER, SELFPAY ==
--- NOTE | 2024-01-16 13:23 | US_ITS ---
PROCEDURE: US OB BIOPHYSICAL PROFILE CLINICAL INDICATION: US OB BPP/Growth -LGA and GDM COMPARISON: US US OB >= 14 WEEKS FETUS from 08/26/2023 US US OB /MATERNAL DETAIL from 10/03/2023 FINDINGS: Transabdominal sonographic images of the uterus were obtained. From her established due date she is 36weeks 5days. The following parameters are obtained: Viable Fetus in the cephalic presentation with an anterior placenta grade 2. Average ultrasound age is 37weeks 3days Estimated weight 3,268g, 7 lb 3 oz Cervix measures 4.4 cm. Measurements: heart Rate = 134bpm BPD = 36weeks 3days, 55 percentile HC = 38weeks 2days, 59 percentile AC = 38weeks 5days, 96 percentile FL = 35weeks 6days, 24 percentile HC/AC is 0.96 FL/BPD is 0.78 FL/AC is 0.2 79 percentile Amniotic fluid index: 11.62cm, MVP 7.31 cm. Qualitative AFV:2 Breathing movements: 2 Gross Body Movements: 2 Tone: 2 Biophysical profile score: 8 No obvious anomalies evident.Kidneys, bladder, four-chamber heart, three-vessel cord appear normal. IMPRESSION: 1. Viable fetus in the cephalic presentation with an anterior placenta grade 2. 2. The fluid is within normal limits with an amniotic fluid index of 11.62 cm, MVP 7.31 cm. 3. Biophysical profile is 8/8 with good breathing movement and movement seen. 4. Limited anatomical scan appears normal. Difficult exam secondary to maternal obesity. 5. There has been good interval growth with the fetus currently 79 percentile. AC is 96 percentile, 2 weeks ahead. Dictated by: Andres Jeff MD 01/17/2024 07:24 Andres Jeff MD in OV 01/17/2024 07:24
== END 2024-01-16 23:59 | disposition home or self-care (01) ==
LOC: RAD 13:23
PROVIDERS: PCP Internal Medicine; Visit Provider Nurse Practitioner Obstetrics & Gynecology
DX: O24.410 Gestational diabetes mellitus in pregnancy, diet controlled (principal); O99.213 Obesity complicating pregnancy, third trimester; E66.01 Morbid (severe) obesity due to excess calories; O36.63X0 Maternal care for excessive fetal growth, third trimester, not applicable or unspecified; Z3A.36 36 weeks gestation of pregnancy
CPT/HCPCS: 76816; 76819

== ENCOUNTER 2024-02-02 05:51 | Inpatient (IN) | payer OTHER, SELFPAY ==
[2024-02-02 05:53] VITALS: BMI 54.7
[2024-02-02 05:59] VITALS: BP 130/89; PULSE 103; RESP 21; TEMP 36.6; O2SAT 98; BMI 54.7
[2024-02-02] MEDS: DEXTROSE 5%-LACTATED RINGERS 1,000 ML 125 ML IV (06:50)
[2024-02-02 06:57] LABS: Microscopic, Urine URINE MICROSCOPIC (MICROSCOPIC)
[2024-02-02 07:15] LABS: Basophils % 0.4 % (0.1-2.0); Eosinophils # 0.2 K/mm3 (0.0-0.4); Eosinophils % 1.9 % (0.1-12.0); Hematocrit 36.6 % (37.0-47.0); Hemoglobin 13.3 g/dL (12.2-16.2); Lymphocytes % 22.1 % (10-50); Mean Corpuscular HGB Conc 36.2 g/dL (31.8-35.4); Mean Corpuscular Hemoglobin 31.9 pg (27.0-31.2); Mean Corpuscular Volume 88.1 fl (81-99); Mean Platelet Volume 13.4 fl (7.4-10.4); Monocytes # 0.5 K/mm3 (0.1-1.0); Monocytes % 4.9 % (1.7-9.3); Neutrophils # 6.5 K/mm3 (1.8-7.8); Neutrophils % 70.7 % (37.0-80.0); Platelet Count 155 K/mm3 (142-424); Red Blood Count 4.16 M/mm3 (4.20-5.40); Red Cell Distribution Width 16.6 % (11.5-17.5); White Blood Count 9.2 K/mm3 (4.8-10.8)
[2024-02-02 07:16] LABS: Appearance,Urine CLEAR (Clear); Bilirubin,Urine Negative (Negative); Blood, Urine Negative (Negative); Color,Urine YELLOW (Yellow); Glucose,Urine (UA) Negative (Negative); Ketones,Urine Negative (Negative); Leukocyte Esterase,Urine Negative (Negative); Nitrate,Urine Negative (Negative); PH,Urine 6.5 (5.0-8.5); Protein,Urine Negative (Negative); Urobilinogen,Urine 0.2 EU/dl (0.2)
[2024-02-02 07:35] LABS: Amphetamine/Metha Screen,Urine Negative ng/ml (<1000)
[2024-02-02 07:36] LABS: Barbiturates Screen,Urine Negative ng/ml (<200)
[2024-02-02 07:37] LABS: Benzodiazepines Screen,Urine Negative ng/ml (<200); Cannabinoid Screen,Urine Negative ng/ml (<50)
--- NOTE | 2024-02-02 07:37 | HMH.PHAINT1 ---
Pharmacy Intervention Comments: Home medications verified using list from pharmacy.
[2024-02-02 07:38] LABS: Cocaine Screen,Urine Negative ng/ml (<300); Methadone Screen,Urine Negative ng/ml (<300)
[2024-02-02 07:39] LABS: Opiate Screen,Urine Negative ng/ml (<300)
[2024-02-02 07:40] LABS: Phencyclidine Screen,Urine Negative ng/ml (<25)
[2024-02-02] MEDS: OXYTOCIN/RINGERS LACTATE 30 UNITS/500 ML BAG IV (08:05)
[2024-02-02] MEDS: LACTATED RINGERS 1000ML 1,000 ML 500 ML IV (08:05)
--- NOTE | 2024-02-02 08:25 | EXP.OB.APHP ---
OB - H&P: HPI Antepartum History of Present Illness Chief complaint: Elective induction of labor History of present illness: Ms Elizabeth Daniels is a 33 yo at 39w1d who presents to [facility] L&D for scheduled elective induction of labor. She admits to irregular mild contractions. No leakage of fluid or vaginal bleeding. Baby is active. complicated by maternal obesity. Last ultrasound 01/16/24 demonstrated EFW 79 %ile. History of Present Criteria for establishing EDC:: based on 2nd trimester US only care: good care Ultrasounds: normal mid trimester US Obstetrical complications: none Medical complications: none Labs Blood type: A (+) positive Rubella: nonimmune RPR/VDRL: nonreactive GBS status: negative HBsAG: negative PFSH PFS Disclaimer: The information contained in this section may have been updated after the patient was seen, as this information can be updated by other users. Medical History (Updated 02/02/24 @ 08:46 by Nichol Mejia DO) Encounter for elective induction of labor Low lying placenta with hemorrhage in second trimester, antepartum Maternal obesity affecting , antepartum Hypokalemia Reactive airway disease Surgical History Hx of dilation and curettage Family History Other Cancer Thyroid disorder Social History (Updated 02/02/24 @ 06:14 by Marni Tomlinson RN) Smoking Status: Current every day smoker tobacco type: cigarettes packs per day: 1 (0.5 packs per day) years smoked: 2 quit status: considering quitting second hand exposure: Yes alcohol intake: never substance use type: former substance user and marijuana current occupational status: unemployed Travel in the last 8 weeks: None household members: spouse and children housing: house lives independently: No marital status: number of children: 3 pets and animals: Yes pets and animals: guinea pig(s) sexually active: Yes caffeine: Yes do you feel safe at home: Yes victim of physical abuse: No victim of emotional abuse: No victim of sexual abuse: No Review of Systems Review of Systems Review of systems:: pertinent systems reviewed and negative unless documented below *Genitourinary Comments: + irregular contractions Meds Home Medications and Allergies Home Medications ?Medication ?Instructions ?Recorded ?Confirmed ?Type ferrous sulfate 325 mg (65 mg 325 mg PO DAILY #30 tabs 09/22/23 02/02/24 Rx iron) tablet vits no.126-ferrous fum 1 tab PO DAILY #30 tabs 09/22/23 02/02/24 Rx 28 mg iron-folic acid 800 mcg tablet (Classic ) New Prescriptions to Start Prescriptions: Allergies Allergy/AdvReac Type Severity Reaction Status Date / Time latex [LATEX] Allergy Mild I-ITCHING Verified 02/02/24 06:09 cinnamon [CINNAMON] Allergy Unknown Unknown Verified 02/02/24 06:09 allergy reaction methylprednisolone Allergy Unknown Unknown Verified 02/02/24 06:09 [METHYLPREDNISOLONE] allergy reaction onion [ONION] Allergy Unknown Unknown Verified 02/02/24 06:09 allergy reaction corn syrup Allergy Swelling Verified 02/02/24 06:10 of Lip/Tongue/Throat peanut Allergy Anaphylaxis Verified 02/02/24 06:09 shellfish derived Allergy Anaphylaxis Verified 02/02/24 06:09 OB - H&P: Exam Physical Exam Vital signs: Temp Pulse Resp BP Pulse Ox O2 Del Method 97.9 F 103 H 21 130/89 98 Room Air 02/02/24 05:59 02/02/24 05:59 02/02/24 05:59 02/02/24 05:59 02/02/24 05:59 02/02/24 05:59 Constitutional no acute distress and cooperative Routine HEENT Exam Head: Present normocephalic and atraumatic Eye: Absent conjunctivae pink ENT: Present mucous membranes moist Routine Neck Exam Present full ROM Routine Respiratory Exam Present CTA bilaterally; Absent normal respiratory effort Routine Cardiovascular Exam Present RRR Routine Abdominal Exam Present soft (Gravid); Absent tenderness Routine Rectal Exam Patient deferred: visual exam Routine Exam External: Present normal urethra appearance; Absent erythema, tenderness, lesions, lacerations or discharge Routine Extremities Exam Present full ROM; Absent edema or calf tenderness Routine Neurological Exam Present alert, moving all extremities and normal speech Routine Psychiatric Exam Present normal affect and cooperative Detailed Labor and Delivery Exam Dilation (cm): 4 Effacement (%): 60 Cervix position: mid station: -3 Consistency: soft Membranes: intact Baseline heart rate: 130 monitor accelerations: Present monitor decelerations: None custodial variability: Moderate (11-25) OB - Results Labs Labs: Short CBC 10/14/24 Range/Units 06:44 WBC 9.2 (4.8-10.8) K/mm3 Hgb 13.3 (12.2-16.2) g/dL Hct 36.6 L (37.0-47.0) % Plt Count 155 (142-424) K/mm3 Urine 02/02/24 Range/Units 06:44 Urine Color Yellow (Yellow) Urine Appearance Clear (Clear) Urine pH 6.5 (5.0-8.5) Ur Specific [place] 1.020 (1.005-1.030) Urine Protein Negative (Negative) Urine Glucose (UA) Negative (Negative) OB - A/P Antepartum (1) Maternal obesity affecting , antepartum: Status: Acute (2) Encounter for elective induction of labor: Status: Acute Additional Plan Additional Information:: Admit to L&D for elective induction of labor. Induction with Pitocin per protol GBS negative Close monitoring Anticipate
[2024-02-02 08:53] VITALS: BP 134/82; PULSE 100; RESP 16; TEMP 36.9; O2SAT 97
--- NOTE | 2024-02-02 10:47 | EXP.ANES.CKL ---
[facility] Disclaimer: The information contained in this section may have been updated after the patient was seen, as this information can be updated by other users. Medical History (Updated 02/02/24 @ 08:46 by Nichol Mejia DO) Encounter for elective induction of labor Low lying placenta with hemorrhage in second trimester, antepartum Maternal obesity affecting , antepartum Hypokalemia Reactive airway disease Surgical History Hx of dilation and curettage Family History Other Cancer Thyroid disorder Social History (Updated 02/02/24 @ 06:14 by Marni Tomlinson RN) Smoking Status: Current every day smoker tobacco type: cigarettes packs per day: 1 (0.5 packs per day) years smoked: 2 quit status: considering quitting second hand exposure: Yes alcohol intake: never substance use type: former substance user and marijuana current occupational status: unemployed Travel in the last 8 weeks: None household members: spouse and children housing: house lives independently: No marital status: number of children: 3 pets and animals: Yes pets and animals: guinea pig(s) sexually active: Yes caffeine: Yes do you feel safe at home: Yes victim of physical abuse: No victim of emotional abuse: No victim of sexual abuse: No [facility] Anesthesia Checklist Patient Identification Patient Identification: Arm Band and Verbal (Name & ) Structural Data Admitted From: Inpatient ([id number]) Planned Operative Procedure/s: Labor Epidural Consent for Planned Operative Procedure(s) Verified: Yes Verified Documents: Surgical Consent and History and Physical NPO Status Verified Time NPO: 09:00 Chart Verification Results Verified: CBC, BMP and ECG Additional verifications Patient : Yes (39 1/7 IUP) Anesthesia Reactions: No Cardiovascular Assessment Heart Sounds: S1 & S2 Pulse Rhythm: Irregular Peripheral Edema: Yes (3+ [place] LE) Airway Assessment Mallampati Score:: Class III C-Spine Mobility Assessed: Yes (FROM) TMJ Mobility Assessed: Yes Dentition: Good Dentition (Nothing loose per pt.) Neurological Assessment Level of Consciousness: Awake, Alert, Appropriate and Follows Commands Hx Seizures: No Numbness or tingling in extremities: No Anesthesia Plan Anesthesia Risk discussed: Yes Anesthesia Plan: Verified ASA Class: III Anesthesia Type: Epidural
--- NOTE | 2024-02-02 10:49 | HMH.PROCNOTE ---
[facility] Procedure Note Date: 02/02/24 Time: 10:18 Procedure Note:: Anesthesia Procedure Note Labor Epidural Position: Sitting Site: L3-4 Prep: Chlorhexidine Local: Lido 1% x 3mL Needle: 18g Touhy YUE to Air: 10cm on needle w/3inch inverted tenting to skin. Catheter threaded to: 20cm. CSF: NEG; Heme: NEG; Parasthesia: NEG Test dose: 5 mL Lido 1.5% w/Epi 1:200K: NEG Catheter taped @ skin: 20cm Bolus: Ropivicaine 0.2% w/Fentanyl 50mcg. PEDIATRIC PSYCHOLOGIST started @: 12mL/hr. Ropivicaine 0.2% w/ Fentanyl 2mcg/mL Will continue to follow as needed.
[2024-02-02] MEDS: OXYTOCIN/RINGERS LACTATE 30 UNITS/500 ML BAG 999 UNITS IV (15:06)
--- NOTE | 2024-02-02 15:06 | EXP.DN ---
Delivery Note Delivery Date:: 02/02/24 Delivery Time:: 14:48 Anesthesia Type: Epidural Was labor medically induced?: No Induction method: per pitocin protocol Gestational age (weeks): 39 delivered prior to 39 weeks?: No Infant Gender: Male at 1 minute: 7 at 5 minutes: 9 Delivery Procedure:: Mom complete with epidural. Pushed for approximately one contraction. Head delivered spontaneously over intact perineum in OA position. Nuchal cord x 2 reduced at perineum. Anterior shoulder delivered with gentle downward pressure. Posterior shoulder and remainder of body delivered spontaneously. Baby placed on maternal abdomen, mouth and nares bulb suctioned, warmed/dried and stimulated. Delayed cord clamping was performed for 60 seconds. Cord was clamped and cut by father of baby. Cord blood was obtained. Placenta delivered spontaneously and intact. First degree perineal laceration repaired with 3-0 Vicryl. Mom and baby were skin to skin and doing well after delivery. Live male baby (baby's name is Tejinder APGARs 7 (1 min), 9 (5 min) EBL 50 mL Placental Delivery Description: Spontaneous
[2024-02-02] MEDS: OXYTOCIN/RINGERS LACTATE 30 UNITS/500 ML BAG 40 UNITS IV (15:21)
[2024-02-02 16:48] VITALS: BP 128/65; PULSE 86; RESP 16; TEMP 36.7; O2SAT 98
[2024-02-02 19:45] VITALS: BP 122/68; PULSE 86; RESP 18; TEMP 36.8; O2SAT 99
[2024-02-02] MEDS: ACETAMINOPHEN 500MG TAB 1000 MG PO (19:46)
[2024-02-02] MEDS: SENNA 8.6MG TABLET 8.6 MG PO (19:47)
[2024-02-02] MEDS: BENZOCAINE-MENTHOL SPRAY 56GM CAN TP (19:47)
[2024-02-02] MEDS: IBUPROFEN 400 MG TABLET 800 MG PO (19:47)
[2024-02-02] MEDS: WITCH HAZEL 40 PADS/BOX 1 EACH TP (19:47)
[2024-02-03] MEDS: ACETAMINOPHEN 500MG TAB 1000 MG PO ×3 (01:31→19:31)
[2024-02-03] MEDS: IBUPROFEN 400 MG TABLET 800 MG PO ×2 (04:23→16:52)
[2024-02-03 06:55] LABS: Basophils % 0.3 % (0.1-2.0); Eosinophils # 0.2 K/mm3 (0.0-0.4); Eosinophils % 2.1 % (0.1-12.0); Hematocrit 34.9 % (37.0-47.0); Hemoglobin 12.5 g/dL (12.2-16.2); Lymphocytes # 2.6 K/mm3 (0.7-4.5); Lymphocytes % 26.4 % (10-50); Mean Corpuscular HGB Conc 35.9 g/dL (31.8-35.4); Mean Corpuscular Hemoglobin 32.4 pg (27.0-31.2); Mean Corpuscular Volume 90.3 fl (81-99); Monocytes # 0.5 K/mm3 (0.1-1.0); Monocytes % 5.3 % (1.7-9.3); Neutrophils # 6.5 K/mm3 (1.8-7.8); Neutrophils % 65.9 % (37.0-80.0); Platelet Count 146 K/mm3 (142-424); Red Blood Count 3.87 M/mm3 (4.20-5.40); Red Cell Distribution Width 14.9 % (11.5-17.5); White Blood Count 9.8 K/mm3 (4.8-10.8)
--- NOTE | 2024-02-03 09:18 | EXP.ACUTE.PN ---
Subjective *Date: 02/03/24 *Time: 09:18 Interval history: PPD # 1 s/p Feeling well. Pain controlled. Breast feeding. Lochia is appropriate. Voiding without difficulty and passing flatus. Tolerating regular diet. Denies fever/chills, chest pain and shortness of breath. No headaches, vision changes, lightheadedness/dizziness. No lower extremity swelling. Ambulating well ad ace. Medical Exam Vital signs and Labs for Last 24 Hours: Vital Signs Temp Pulse Resp BP Pulse Ox O2 Del Method 02/02/24 19:45 98.3 F 86 18 122/68 99 Room Air 02/02/24 16:48 98.1 F 86 16 128/65 98 Room Air Laboratory Results - last 24 hr 02/03/24 06:26: WBC 9.8, RBC 3.87 L, Hgb 12.5, Hct 34.9 L, MCV 90.3, MCH 32.4 H, MCHC 35.9 H, RDW 14.9, Plt Count 146, MPV 10.0, Neut % (Auto) 65.9, Lymph % (Auto) 26.4, [place] % (Auto) 5.3, Eos % (Auto) 2.1, Baso % (Auto) 0.3, Neut # (Auto) 6.5, Lymph # (Auto) 2.6, [place] # (Auto) 0.5, Eos # (Auto) 0.2, Baso # (Auto) 0.0 I & O for Labs for Last 24 Hours: Intake & Output 01/31/24 02/01/24 02/02/24 02/03/24 23:59 23:59 23:59 23:59 Weight 360 lb Head: Present atraumatic and normocephalic Neck: Present full ROM Respiratory: Present CTA bilaterally and normal respiratory effort Cardiac: Present Reg Rate and Rhythm GI: Present soft and normal bowel sounds; Absent tenderness Comments:: Uterine fundus firm and below umbilicus Rectal (female): Present deferred (female): Present deferred Extremities: Present normal inspection and full ROM; Absent calf tenderness Neuro: Present alert, awake and moves all extremities Assessment and Plan *Assessment and plan (1) Status post normal vaginal delivery: Status: Acute Category: Medical (2) 39 weeks gestation of : Status: Acute Category: Medical Code(s): Z3A.39 - 39 weeks gestation of (3) Encounter for elective induction of labor: Status: Acute Category: Medical Code(s): Z34.90 - Encounter for supervision of normal , unspecified, unspecified trimester (4) Maternal obesity affecting , antepartum: Status: Acute Qualifiers: Obesity type affecting : severe obesity due to excess calories Qualified Code(s): O99.210 - Obesity complicating , unspecified trimester; E66.01 - Morbid (severe) obesity due to excess calories Category: Medical Code(s): O99.210 - Obesity complicating , unspecified trimester Plan Continue routine care Encouraged increased ambulation Plan d/c home tomorrow
[2024-02-03 12:20] LABS: Rapid Plasma Reagin Ab Titer Non Reactive titer (NonRea<1:1)
[2024-02-03] MEDS: PRENATAL MULTIVITAMIN W/IRON 1 EACH PO (16:52)
[2024-02-03 19:24] VITALS: BP 120/67; PULSE 71; RESP 18; TEMP 37.1; O2SAT 98
[2024-02-03] MEDS: SENNA 8.6MG TABLET 8.6 MG PO (19:31)
[2024-02-04] MEDS: IBUPROFEN 400 MG TABLET 800 MG PO (01:20)
[2024-02-04 09:12] VITALS: BP 135/63; PULSE 84; RESP 18; TEMP 36.8; O2SAT 97
--- NOTE | 2024-02-04 10:17 | P.DS_ITS ---
General Admission date:: 02/02/24 Discharge date: 02/04/24 HPI HPI HPI: PPD # 2 s/p Feeling well. Pain controlled. Formula feeding. Lochia is appropriate. Voiding without difficulty and passing flatus. Tolerating regular diet. Denies fever/chills, chest pain and shortness of breath. No headaches, vision changes, lightheadedness/dizziness. No lower extremity swelling. Ambulating well ad ace. Hospital Course Hospital Course Hospital Course: Ms Elizabeth Daniels is a 33 yo at 39w1d who presents to [facility] L&D for scheduled elective induction of labor. She admits to irregular mild contractions. No leakage of fluid or vaginal bleeding. Baby is active. complicated by maternal obesity. Last ultrasound 01/16/24 demonstrated EFW 79 %ile. GBS negative. She underwent induction of labor with Pitocin. She had a normal spontaneous vaginal delivery on 02/02/24. She delivered a live male baby, Tejinder, weighing 8 lb 1 oz. APGARs 7 (1 min), 9 (5 min). EBL 50 mL. She did well . Pain controlled. Formula feeding. Light lochia. Voiding without difficulty and passing flatus. Tolerating regular diet. Denies fever/chills, chest pain and shortness of breath. No headaches, dizziness/lightheadedness or vision changes. Vital signs stable, afebrile. Heart regular rate and rhythm. Lungs clear to auscultation. Abdomen soft, nontender. No lower extremity swelling. Ambulating well ad ace. Normal hospital course. She was discharged to home on POD # 2 with instructions to follow-up in the office in 2 weeks or sooner if needed. Exam Data for Last 24 hours Vital signs and Labs for Last 24 Hours: Temp Pulse Resp BP Pulse Ox O2 Del Method 98.2 F 84 18 135/63 97 Room Air 02/04/24 09:12 02/04/24 09:12 02/04/24 09:12 02/04/24 09:12 02/04/24 09:12 02/04/24 09:12 Laboratory Results - last 24 hr 02/02/24 06:44: RPR Titer Non reactive I & O for Last 24 hours: Intake & Output 02/01/24 02/02/24 02/03/24 02/04/24 23:59 23:59 23:59 23:59 Weight 360 lb Constitutional Constitutional: no acute distress, morbidly obese and cooperative *Routine HEENT Exam Head: Present normocephalic and atraumatic Eye: Absent conjunctivae pink ENT: Present mucous membranes moist *Routine Neck Exam Neck: Present full ROM *Routine Respiratory Exam Respiratory: Present CTA bilaterally and normal respiratory effort *Routine Cardiovascular Exam Cardiovascular: Present RRR *Routine Abdominal Exam Abdominal: Present soft; Absent tenderness *Routine Rectal Exam Patient deferred: visual exam *Routine Exam Patient deferred: external exam *Routine Extremities Exam Extremities: Present full ROM; Absent edema or calf tenderness Results Data Completed and Pending Labs on day of discharge: Labs from last 24 hours 02/02/24 06:44 RPR Titer Non reactive DS: Diagnosis Discharge Diagnosis (1) Status post normal vaginal delivery: Status: Acute (2) 39 weeks gestation of : Status: Acute Code(s): Z3A.39 - 39 weeks gestation of (3) Encounter for elective induction of labor: Status: Acute Code(s): Z34.90 - Encounter for supervision of normal , unspecified, unspecified trimester (4) Maternal obesity affecting , antepartum: Status: Acute Code(s): O99.210 - Obesity complicating , unspecified trimester Qualifiers: Obesity type affecting : severe obesity due to excess calories Qualified Code(s): O99.210 - Obesity complicating , unspecified trimester; E66.01 - Morbid (severe) obesity due to excess calories Meds Home Medications and Allergies Home Medications ?Medication ?Instructions ?Recorded ?Confirmed ?Type ibuprofen 400 mg tablet 800 mg (2 x 400 mg) PO Q8HP PRN 02/04/24 Rx Mild To Moderate Pain (1-6) #20 tabs New Prescriptions to Start Prescriptions: ibuprofen JackieNichol Allergies Allergy/AdvReac Type Severity Reaction Status Date / Time latex [LATEX] Allergy Mild I-ITCHING Verified 02/02/24 06:09 cinnamon [CINNAMON] Allergy Unknown Unknown Verified 02/02/24 06:09 allergy reaction methylprednisolone Allergy Unknown Unknown Verified 02/02/24 06:09 [METHYLPREDNISOLONE] allergy reaction onion [ONION] Allergy Unknown Unknown Verified 02/02/24 06:09 allergy reaction corn syrup Allergy Swelling Verified 02/02/24 06:10 of Lip/Tongue/Throat peanut Allergy Anaphylaxis Verified 02/02/24 06:09 shellfish derived Allergy Anaphylaxis Verified 02/02/24 06:09 Discharge Plan Disposition Patient Disposition: Home, Self-Care Condition: Good Discharge Order Discharge Orders: Discharge Order (Routine); Ordered 02/04/24 Ordered By: Nichol Mejia Follow up Plan Follow up with: Andres Jeff MD [Staff Physician] - 02/16/24 2:00 pm Prescriptions/Medication Reconciliation: New ibuprofen 400 mg Tablet 800 mg PO Q8HP PRN (Reason: Mild To Moderate Pain (1-6)) Qty: 20 0RF Discontinued Classic 28 mg iron- 800 mcg tablet 1 tab PO DAILY Qty: 30 11RF ferrous sulfate 325 mg (65 mg iron) tablet 325 mg PO DAILY Qty: 30 6RF Problem Reconciliation Problems Reviewed?: Yes Patient Discharge Instructions ACTIVITY: Limited activity DIET: continue same diet and regular diet Additional Instructions: Congratulations!! Discharge: 1. Take 800 mg Ibuprofen every 8 hours as needed for pain. You can also take 500-1000 mg of Tylenol in between doses, every 6-8 hours. 2. Nothing in the vagina for 6 weeks - no intercourse, douching or tampons. No tub baths/hot tubs or swimming pools 3. Reasons to return to L&D or call On-Call doctor - fever (greater than 100.4) - heavy vaginal bleeding (soaking through 1 pad in less than 2 hours) - vaginal discharge (malodorous and/or purulent) - severe headaches not resolved by medication or rest and leg tenderness/edema 4. depression/blues - Normal to feel anxious/overwhelmed for first 2 weeks - Talk to your doctor if: severe anxiety, trouble bonding with baby, withdrawing from other family members, thoughts of harming yourself or others Nichol Mejia DO [facility] [phone] Patient Instructions: Depression, Hemorrhage, DI for Labor and Delivery, Vaginal , DI for Pre-eclampsia, [facility] Post Discharge Instructions Print Language: Lao Providers Primary Care Provider: Juan Manuel Jean Provider: Nichol Mejia Attending Provider: Nichol Mejia
== END 2024-02-04 12:00 | disposition home or self-care (01) | DRG 807 ==
PROVIDERS: Admitting Provider Obstetrics & Gynecology; PCP Internal Medicine; Visit Provider Obstetrics & Gynecology
DX: O69.81X0 Labor and delivery complicated by cord around neck, without compression, not applicable or unspecified; Z37.0 Single live birth; O99.214 Obesity complicating childbirth; Z3A.39 39 weeks gestation of pregnancy; F17.210 Nicotine dependence, cigarettes, uncomplicated; O70.0 First degree perineal laceration during delivery; O99.334 Smoking (tobacco) complicating childbirth; E66.01 Morbid (severe) obesity due to excess calories
CPT/HCPCS: 36415; 59025; 80307; 81001; 85025; 86593; 86850; 94761; C1758; G0283; J3010; J7120

== ENCOUNTER 2024-02-22 20:24 | Emergency (ER) | payer OTHER, SELFPAY ==
--- NOTE | 2024-02-22 20:30 | PC.NURSE ---
Dr. Claros at bedside
[2024-02-22 20:31] VITALS: BP 159/95; PULSE 82; RESP 18; TEMP 36.7; O2SAT 99; BMI 53.8
--- NOTE | 2024-02-22 20:40 | CT_ITS ---
PROCEDURE INFORMATION: Exam: CTA Chest With Contrast Exam date and time: 02/22/2024 9:55 PM Age: 33 years old Clinical indication: Pain; Other: Post pleuritic cp TECHNIQUE: Imaging protocol: Computed tomographic angiography of the chest with contrast. Exam focused on the arteries. 3D rendering (Not supervised by radiologist): MIP and/or 3D reconstructed images were created by the technologist. Radiation optimization: All CT scans at this facility use at least one of these dose optimization techniques: automated exposure control; mA and/or kV adjustment per patient size (includes targeted exams where dose is matched to clinical indication); or iterative reconstruction. Contrast material: ISOUVE 370; Contrast volume: 70 ml; Contrast route: INTRAVENOUS (IV); COMPARISON: CR CXR2V XR chest 2V 11/05/2017 11:11 PM FINDINGS: Pulmonary arteries: Normal. No pulmonary emboli. Aorta: Unremarkable. No aortic aneurysm. No aortic dissection. Lungs: Unremarkable. No consolidation. No masses. Pleural spaces: Unremarkable. No pneumothorax. No pleural effusion. Heart: Unremarkable. No cardiomegaly. No pericardial effusion. Lymph nodes: Unremarkable. No enlarged lymph nodes. Bones/joints: Unremarkable. No acute fracture. Soft tissues: Unremarkable. IMPRESSION: No acute findings.
--- NOTE | 2024-02-22 20:41 | ECG_ITS ---
APPROVED REPORT Exam: Resting ECG HR:89 bpm ECG Measurements Heart Rate 89 AXES DC 132 P 57 QRSd 86 QRS 52 QT 361 T 20 QTc 408 Conclusion SINUS RHYTHM NONSPECIFIC T-WAVE ABNORMALITY BORDERLINE ECG UNCONFIRMED REPORT Electronically signed by : Jet Claros, 02/22/2024 23:09:27
[2024-02-22 20:45] VITALS: BP 159/95; PULSE 81; O2SAT 99
[2024-02-22] MEDS: 0.9 % SODIUM CHLORIDE 1000ML 1,000 ML 999 ML IV (20:48)
[2024-02-22] MEDS: KETOROLAC 30MG/ML VIAL 15 MG IV (20:50)
[2024-02-22 20:54] LABS: Basophils # 0.1 K/mm3 (0-0.2); Basophils % 0.8 % (0.1-2.0); Eosinophils # 0.5 K/mm3 (0.0-0.4); Eosinophils % 4.8 % (0.1-12.0); Hematocrit 41.2 % (37.0-47.0); Hemoglobin 14.1 g/dL (12.2-16.2); Lymphocytes # 3.1 K/mm3 (0.7-4.5); Lymphocytes % 32.8 % (10-50); Mean Corpuscular HGB Conc 34.3 g/dL (31.8-35.4); Mean Corpuscular Hemoglobin 29.6 pg (27.0-31.2); Mean Corpuscular Volume 86.2 fl (81-99); Mean Platelet Volume 9.1 fl (7.4-10.4); Monocytes # 0.6 K/mm3 (0.1-1.0); Monocytes % 5.7 % (1.7-9.3); Neutrophils # 5.3 K/mm3 (1.8-7.8); Neutrophils % 55.8 % (37.0-80.0); Platelet Count 248 K/mm3 (142-424); Red Blood Count 4.78 M/mm3 (4.20-5.40); Red Cell Distribution Width 13.7 % (11.5-17.5); White Blood Count 9.5 K/mm3 (4.8-10.8)
--- NOTE | 2024-02-22 20:55 | [facility].EDCP ---
Discharge Plan Disposition Patient Disposition: Home, Self-Care Prescriptions Prescriptions: No Action PNV cmb#95-ferrous fumarate-FA [] 28 mg iron- 800 mcg tablet PO Referrals Follow up/Referrals: Provider,Referral, [Primary Care Provider] - See instructions Activity Restrictions/Add. Instructions Additional Instructions/Restrictions: No emergent medical condition identified today please take ibuprofen as needed for your symptoms and follow-up with primary care doctor or return to the emergency room with any significant worsening of her symptoms. Clinical Impressions Clinical Impression: Chest pain, pleuritic Print Language Print Language: Russian Discharge ED Provider: Rico Claros HPI General Chief Complaint: Shortness of Breath/Dyspnea Stated Complaint: soa lung pain Time Seen by Provider: 02/22/24 20:34 Mode of Arrival: Ambulatory Source of Information: Patient Limitations: No Limitations Description of Symptoms (Recalled from ER Triage Doc. by RN): Pt ambulatory to ED with cc of pain with breathing. Pt states she has sharp shooting pain on inspiration and expiration. Pt states this has been occuring ofr appprox 1 week. Pt states it is hard to breath. Pt denies having any cough. Pt is 3 weeks . Pt states having no complications with and having a vaginal . History of Present Illness HPI narrative: Patient is a 33-year-old female who is 3 weeks from a vaginal delivery. She presents today with pleuritic chest pain. This began approximately 1 week ago. She denies any fevers or chills lower extremity swelling hemoptysis or recent viral type symptoms. She states that she had a similar presentation in the past when she was ultimately diagnosed with pneumonia. Delivery was uncomplicated. Related Data Home Medications ?Medication ?Instructions ?Recorded ?Confirmed vit no.95-ferrous tab PO 02/16/24 02/16/24 fumarate 28 mg-folic acid 800 mcg tablet () Allergies Allergy/AdvReac Type Severity Reaction Status Date / Time latex [LATEX] Allergy Mild I-ITCHING Verified 02/16/24 13:41 cinnamon [CINNAMON] Allergy Unknown Unknown Verified 02/16/24 13:41 allergy reaction methylprednisolone Allergy Unknown Unknown Verified 02/16/24 13:41 [METHYLPREDNISOLONE] allergy reaction onion [ONION] Allergy Unknown Unknown Verified 02/16/24 13:41 allergy reaction corn syrup Allergy Swelling Verified 02/16/24 13:41 of Lip/Tongue/Throat peanut Allergy Anaphylaxis Verified 02/16/24 13:41 shellfish derived Allergy Anaphylaxis Verified 02/16/24 13:41 [facility] Disclaimer: The information contained in this section may have been updated after the patient was seen, as this information can be updated by other users. Medical History Gestational diabetes mellitus (GDM) Status post normal vaginal delivery 39 weeks gestation of Encounter for elective induction of labor Low lying placenta with hemorrhage in second trimester, antepartum Maternal obesity affecting , antepartum Hypokalemia Reactive airway disease Surgical History Hx of dilation and curettage Family History Other Cancer Thyroid disorder Social History Smoking Status: Current some day smoker tobacco type: cigarettes packs per day: 1 (0.5 packs per day) years smoked: 2 quit status: considering quitting second hand exposure: Yes alcohol intake: never substance use type: former substance user and marijuana current occupational status: unemployed Travel in the last 8 weeks: None household members: spouse and children housing: house lives independently: No marital status: number of children: 3 pets and animals: Yes pets and animals: guinea pig(s) sexually active: Yes caffeine: Yes do you feel safe at home: Yes victim of physical abuse: No victim of emotional abuse: No victim of sexual abuse: No Other Medical History Have you received the Flu Vaccine for this season: No Have you received the Pneumonia Vaccine: No ROS Obtained: Yes All systems reviewed & no additional complaints except as documented Physical Exam General General appearance: alert and in no apparent distress Respiratory Respiratory exam: Present normal lung sounds bilaterally; Absent respiratory distress Cardiovascular Cardiovascular exam: Present regular rate Neurological Exam Neurological exam: Present alert and oriented X3 HEART Score HEART Score HEART Score assessment performed?: Yes History (anamnesis): Slightly suspicious ECG: Normal Age: <45 years Risk factors: No known risk factors Troponin: </= normal limit HEART Score: 0 Critical Care Critical Care Time Critical Care Time: No Medical Decision Making Chema Inquiry Pt receiving controlled substance: No Vital Signs Vital Signs: 02/22/24 20:31 02/22/24 20:45 02/22/24 21:20 Temperature 98.1 F Temperature Source Oral Pulse Rate 81 95 H Pulse Rate [Left Radial] 82 Respiratory Rate 18 Blood Pressure 159/95 H 158/78 H Blood Pressure [Right Arm] 159/95 H Blood Pressure Mean [Right Arm] 116 Blood Pressure Source [Right Arm] Automatic Cuff 02 Sat by Pulse Oximetry 99 99 98 Oxygen Delivery Method Room Air Lab Data Lab results reviewed: Yes I reviewed the patient's lab results. Labs: Lab Results 02/22/24 20:40: WBC 9.5, RBC 4.78, Hgb 14.1, Hct 41.2, MCV 86.2, MCH 29.6, MCHC 34.3, RDW 13.7, Plt Count 248, MPV 9.1, Neut % (Auto) 55.8, Lymph % (Auto) 32.8, [place] % (Auto) 5.7, Eos % (Auto) 4.8, Baso % (Auto) 0.8, Neut # (Auto) 5.3, Lymph # (Auto) 3.1, [place] # (Auto) 0.6, Eos # (Auto) 0.5 H, Baso # (Auto) 0.1, Sodium 140, Potassium 3.7, Chloride 107, Carbon Dioxide 28, Anion Gap 8.7, BUN 13, Creatinine 0.80, Estimated Creat Clear 103, Estimated GFR 84, Est GFR ( Amer) 101, Glucose 114 H, Calcium 8.9, Total Bilirubin 0.4, AST 29, ALT 31, Alkaline Phosphatase 116, Troponin I < 0.01, NT-Pro-B Natriuret Pep 46.8, Total Protein 6.7, Albumin 3.6, Globulin 3.1, Albumin/Globulin Ratio 1.2, HIV 1&2 Antibody Rapid Nonreactive 02/22/24 20:40 02/22/24 20:40 Response Orders (Tests/Meds): ED MEDICATIONS Generic Name Dose Route Start Last Admin Trade Name Freq PRN Reason Stop Dose Admin Sodium Chloride 10 ml 02/22/24 20:46 Sodium Chloride 0.9% 10ml Flush Syringe IV 03/23/24 20:45 NEEDED PRN Maintain IV Site Discontinued Medications Generic Name Dose Route Start Last Admin Trade Name Freq PRN Reason Stop Dose Admin Sodium Chloride 1,000 mls @ 999 mls/hr 02/22/24 20:45 02/22/24 20:48 Sod Chlor 0.9% 1000ml Bag IV 02/22/24 21:45 999 mls/hr .Q1H1M JUANITO Administration Iopamidol 70 ml 02/22/24 21:08 02/22/24 21:10 Iopamidol-370 (76%);100ml Bottle IV 02/22/24 21:09 70 ml ONCE ONE Administration Ketorolac Tromethamine 15 mg 02/22/24 20:39 02/22/24 20:50 Ketorolac 30mg/Ml Vial IV 02/22/24 20:40 15 mg ONCE ONE Administration Sodium Chloride 40 ml 02/22/24 21:08 02/22/24 21:10 0.9 % Sodium Chloride 50 Ml Vial IV 02/22/24 21:09 40 ml ONCE ONE Administration ORDERS Category Date Time Status CT angio chest PE protocol Stat Cat Scan 02/22/24 20:40 Completed BNP [NT Pro Brain Natriuretic Pep.] Stat Lab 02/22/24 20:40 Completed CBC w/Auto Diff [Complete Blood Count Auto Diff] Stat Lab 02/22/24 20:40 Completed CMP [Comprehensive Metabolic Panel] Stat Lab 02/22/24 20:40 Completed HIV (1&2) Antibody Rapid Stat Lab 02/22/24 20:40 Completed Hep C Ab with Reflex to RNA Stat Lab 02/22/24 20:40 Received Trop I [Troponin I] Stat Lab 02/22/24 20:40 Completed Troponin I Q3H Lab 02/22/24 23:45 Ordered Troponin I Q3H Lab 02/23/24 02:45 Ordered ECG Data Tracing #1: Attestation: I reviewed this ECG and interpreted as documented below: ECG Narrative: Ventricular rate of 89 normal sinus rhythm no acute ischemic changes noted isolated T wave inversion in lead III but no contiguous ischemic changes no significant ST segment changes normal axis no conduction abnormalities MDM Narrative Medical Decision Narrative: 33-year-old with above history and physical. She weighs 160 kg and chest x-ray would be low yield given her body habitus. With her pleuritic pain being I am concerned about a possible pulmonary embolism even though her vital signs are normal at the moment. She also states she has had similar presentation in the past with pneumonia but she has had no fevers chills or cough. Will obtain a CT PE for further evaluation and management of her symptoms today. It is possible its idiopathic pleurisy but she has had no preceding viral symptoms etc. CT scan performed which I personally interpreted shows no pulmonary embolism nor any parenchymal abnormality such as dense consolidation or pneumonia. Radiology read this is consistent with this. Reassessment at 10:50 PM patient feeling much better working diagnosis is nonspecific pleuritic chest pain possibly idiopathic pleurisy. Nonetheless this is not consistent with a cardiopulmonary emergency she was reassured she was discharged with supportive care instructions including NSAIDs and to return with any significant worsening of her symptoms.
[2024-02-22 20:58] LABS: Albumin Level 3.6 g/dl (3.5-5.0); Chloride 107 mmol/L (98-107); Potassium 3.7 mmoL/L (3.5-5.1); Sodium 140 mmol/L (136-145)
[2024-02-22 21:01] LABS: Alanine Aminotransferase 31 U/L (12-78); Albumin/Globulin Ratio 1.2 (1.1-1.8); Alkaline Phosphatase 116 U/L (38-126); Anion Gap 8.7 mEq/L (5-15); Aspartate Amino Transferase 29 U/L (14-36); Bilirubin,Total 0.4 mg/dl (0.2-1.3); Blood Urea Nitrogen 13 mg/dl (7-17); Calcium 8.9 mg/dl (8.4-10.2); Carbon Dioxide 28 mmol/L (22.0-30.0); Creatinine Clearance Estimated 103 mL/min (50-200); Estimated Glomerular Filt Rate 84 ml/min (>60); GFR (African American) 101 ML/MIN (>60); Globulin 3.1 g/dL (1.3-3.2); Glucose 114 mg/dl (74-100); Total Protein,Serum 6.7 g/dl (6.3-8.2)
[2024-02-22 21:10] LABS: NT Pro Brain Natriuretic Pep. 46.8 pg/mL (0-125)
[2024-02-22] MEDS: IOPAMIDOL-370 (76%);100ML BOTTLE 70 ML IV (21:10)
[2024-02-22] MEDS: 0.9 % SODIUM CHLORIDE 50 ML VIAL 40 ML IV (21:10)
[2024-02-22 21:20] VITALS: BP 158/78; PULSE 95; O2SAT 98
--- NOTE | 2024-02-22 21:20 | PC.NURSE ---
Consent received from Pt for I&D
[2024-02-22 21:35] LABS: Troponin I < 0.01 ng/ml (0.00-0.034)
[2024-02-22 22:32] LABS: HIV (1&2) Antibody Rapid NONREACTIVE (NONREACTIVE)
[2024-02-22 22:46] VITALS: BP 139/80; PULSE 93; RESP 18; TEMP 36.8; O2SAT 98
[2024-02-24 09:28] LABS: HCV Ab Non Reactive (Non Reactive)
== END 2024-02-22 22:54 | disposition home or self-care (01) ==
PROVIDERS: Ophthalmology; Emergency Provider Student in an Organized Health Care Education/Training Program
DX: R09.1 Pleurisy (principal)
CPT/HCPCS: 71275; 80053; 83880; 84484; 85025; 86803; 87389; 93005; 96374; 99285; J1885; J7030; Q9967

== ENCOUNTER 2024-05-25 07:18 | Outpatient (CLI) | payer OTHER, SELFPAY ==
--- NOTE | 2024-05-25 07:22 | US_ITS ---
FINAL REPORT TECHNIQUE: Ultrasound images of the abdomen were obtained. CLINICAL HISTORY: abdominal pain/poss hernia on left FINDINGS: The pancreas is obscured by bowel gas. There is fatty infiltration of the liver. Gallstones are identified. The common duct is normal. The right kidney measures 10.8 cm in length and is normal in echogenicity without hydronephrosis. The left kidney measures 12.2 cm in length and is normal in echogenicity without hydronephrosis. The spleen is unremarkable. The aorta is normal in caliber. The vena cava is unremarkable. IMPRESSION: Fatty liver. Cholelithiasis. Reviewed, Interpreted and Dictated by Lexx Millan MD Transcribed by Vanessa Donald Authenticated and [facility]
== END 2024-05-25 23:59 | disposition home or self-care (01) ==
LOC: RAD 07:20
PROVIDERS: PCP Family Medicine; Visit Provider Family Medicine
DX: R14.0 Abdominal distension (gaseous) (principal); R10.9 Unspecified abdominal pain
CPT/HCPCS: 76700

== ENCOUNTER 2024-06-03 09:43 | Outpatient (CLI) | payer OTHER, SELFPAY ==
[2024-06-03 10:32] LABS: Basophils % 0.2 % (0.1-2.0); Eosinophils # 0.4 K/mm3 (0.0-0.4); Eosinophils % 4.7 % (0.1-12.0); Hematocrit 41.4 % (37.0-47.0); Hemoglobin 13.7 g/dL (12.2-16.2); Lymphocytes % 24.2 % (10-50); Mean Corpuscular HGB Conc 33.1 g/dL (31.8-35.4); Mean Corpuscular Hemoglobin 28.2 pg (27.0-31.2); Mean Corpuscular Volume 85.4 fl (81-99); Mean Platelet Volume 11.8 fl (7.4-10.4); Monocytes # 0.6 K/mm3 (0.1-1.0); Monocytes % 7.1 % (1.7-9.3); Neutrophils # 5.3 K/mm3 (1.8-7.8); Neutrophils % 63.4 % (37.0-80.0); Platelet Count 201 K/mm3 (142-424); Red Blood Count 4.85 M/mm3 (4.20-5.40); Red Cell Distribution Width 13.2 % (11.5-17.5); White Blood Count 8.4 K/mm3 (4.8-10.8)
[2024-06-03 10:35] LABS: Urine Pregnancy, HCG Qual. Negative (Negative)
[2024-06-03 11:40] LABS: Albumin Level 4.3 g/dl (3.5-5.0); Chloride 108 mmol/L (98-107); Potassium 3.8 mmoL/L (3.5-5.1); Sodium 141 mmol/L (136-145)
[2024-06-03 11:43] LABS: Alanine Aminotransferase 37 U/L (12-78); Albumin/Globulin Ratio 1.6 (1.1-1.8); Alkaline Phosphatase 84 U/L (38-126); Anion Gap 11.8 mEq/L (5-15); Aspartate Amino Transferase 34 U/L (14-36); Bilirubin,Total 0.4 mg/dl (0.2-1.3); Blood Urea Nitrogen 12 mg/dl (7-17); Calcium 8.9 mg/dl (8.4-10.2); Carbon Dioxide 25 mmol/L (22.0-30.0); Cholesterol 163 mg/dl (140-200); Estimated Glomerular Filt Rate 98 ml/min (>60); GFR (African American) 118 ML/MIN (>60); Globulin 2.7 g/dL (1.3-3.2); Glucose 85 mg/dl (74-100); Triglycerides 144 mg/dl (30-150); VLDL Cholesterol 29 mg/dL (0-40)
[2024-06-03 11:44] LABS: Chol/HDL Ratio 4.5 (1-3.5); HDL Cholesterol 36 mg/dl (40-60)
[2024-06-03 11:54] LABS: Direct LDL Cholesterol 93.34 mg/dL (100-129)
[2024-06-03 12:00] LABS: 25-OH Vitamin D, Total 46.7 ng/mL (30-100)
[2024-06-03 12:13] LABS: Thyroid Stimulating Hormone 1.36 uIU/mL (0.465-4.68)
[2024-06-03 12:41] LABS: Hemoglobin A1C 4.7 % (4.0-6.0)
[2024-06-03 13:18] LABS: Vitamin B12 703 pg/mL (239-931)
== END 2024-06-03 23:59 | disposition home or self-care (01) ==
LOC: LAB 09:44
PROVIDERS: PCP Family Medicine; Visit Provider Family Medicine
DX: R53.83 Other fatigue (principal); E66.9 Obesity, unspecified; Z68.43 Body mass index [BMI] 50.0-59.9, adult; R14.0 Abdominal distension (gaseous); R63.1 Polydipsia; K59.09 Other constipation; K80.20 Calculus of gallbladder without cholecystitis without obstruction; K76.0 Fatty (change of) liver, not elsewhere classified
CPT/HCPCS: 36415; 80053; 80061; 81025; 82306; 82607; 83036; 84443; 85025

== ENCOUNTER 2024-11-18 11:00 | Outpatient (CLI) | payer OTHER, SELFPAY ==
[2024-11-18 14:59] LABS: Coronavirus 19, PCR Not Detected (NotDetected); Influenza A, PCR Not Detected (NotDetected); Influenza B, PCR Not Detected (NotDetected)
== END 2024-11-18 23:59 | disposition home or self-care (01) ==
LOC: LAB.DROPOF 11-19 13:43
PROVIDERS: PCP Student in an Organized Health Care Education/Training Program; Visit Provider Student in an Organized Health Care Education/Training Program
DX: R52 Pain, unspecified (principal)
CPT/HCPCS: 87631

== ENCOUNTER 2024-11-26 15:32 | Outpatient (CLI) | payer OTHER, SELFPAY ==
--- OUTSIDE RECORDS SUMMARY | 2024-11-26 15:35 | XMS_ITS | Clinical Summary ---
Author Organization [facility] Address [address] [place] [address] Care Team Providers Care Glass Mechanic Name Role Phone Provider, No Known Primary Care Provider Unavail able Allergies Active Allergy Reactions Criticality Noted Date Comments Cinnamon Swelling Medium 10/15/2022 Onion Swelling 10/15/2022 Shrimp Hives,Swelling High 10/15/2022 Medications Blood Glucose Monitoring Suppl (FreeStyle Lite) w/Device kitIndications:G estational diabetes mellitus (GDM), antepartum, gestational diabetes method of control unspecified 1 each 4 (Four) Times a Day. 1 kit 10/07/2022 Active glucose blood (FREESTYLE LITE) test stripIndications :Gestational diabetes mellitus (GDM), antepartum, gestational diabetes method of control unspecified For testing blood glucose 4x/day. 100 each 12 10/07/2022 Active Lancets (freestyle) lancetsIndicatio ns:Gestational diabetes mellitus (GDM), antepartum, gestational diabetes method of control unspecified For testing blood glucose 4x/day. 100 each 12 10/07/2022 Active Vit-Fe Fumarate-FA ( vitamin 27-0.8) 27-0.8 MG tablet tablet Take by mouth Daily. Active ferrous sulfate 324 (65 Fe) MG tablet delayed-release EC tablet Take 1 tablet by mouth Daily With Breakfast. Active aspirin 81 MG EC tablet Take 1 tablet by mouth Daily. Active Active Problems Problem Noted Date Diagnosed Date Diet controlled gestational diabetes mellitus (GDM) in third trimester 2022 Social History Tobacco Use Types Packs/Day Years Used Date Smoking Tobacco: Every Day Cigarettes Smokeless Tobacco: Never Alcohol Use Standard Drinks/Week Comments Never 0 (1 standard drink = 0.6 oz pur e alcohol) Abuse Screen Answer Date Recorded Unsafe at Home or Work/School Not on file Feels Threatened by Someone? Not on file Does Anyone Keep You from Co ntacting Others or Doint Things Outside the Home? Not on file 01/31/2023 Physical Sign of Abuse Present Not on file 1 Housing Stability Answer Date Recorded Current Living Arrangements Not on file 01/19 Potentially Unsafe Housing Conditions Not on dustin e 01/31/2023 Family and Community Support Answer Manuel e Recorded Help with Day-to-Day Activities Not on file 01/31/2023 Lonely or Isolated Not on file 01/31/2023 Employment Answer Date Recorded Do you want help finding or keeping work or a tl b? Not on file 01/31/2023 Disabilities Answer Date Recorded Concentrating, Remembering, or Making Decisions Difficulty Not on file 01/31/2023 Doing Errands Independently Difficulty Not on fi le 01/31/2023 Education Answer Date Recorded Help with school or training? Not on file Preferred Language Not on file 01/31/2023 Comments No Sex and Gender Information Value Date Recorded Sex Assigned at Not on file Legal Sex Female 11:55 AM EDT Gender Identity Not on file Sexual Orientation Not on file Last Filed Vital Signs Vital Sign Reading Time Taken Comments Blood Pressure 113/71 11/12/2022 3:06 PM EDT Pulse - - Temperature - - Respiratory Rate - - Oxygen Saturation - - Inhaled Oxygen Concentration - - Weight 158 kg (348 lb) 11/12/2022 3:06 PM EDT Height 162.6 cm (5' 4 ) 10/15/2022 2:03 PM EDT Body Mass Index 59.73 10/15/2022 2:03 PM EDT Plan of Treatment Health Maintenance Due Date Last Done Comments Annual Gynecologic Pelvic and Breast Exam 1992 Pneumococcal Vaccine 0-49 (1 of 2 - PCV) 10/17/2011 TDAP/TD VACCINES (1 - Tdap) 10/17/2011 ANNUAL PHYSICAL 10/02/2022 HEPATITIS C SCREENING 10/02/2022 COVID-19 Vaccine ( - season) 2023 INFLUENZA VACCINE 01/19/2025 Insurance [facility] Care Teams Glass Mechanic Relationship Specialty Start Date End Date Provider, [place] [address] PCP - General 10/02/22
== END 2024-11-26 23:59 | disposition home or self-care (01) ==
LOC: LAB 15:33
PROVIDERS: PCP Family Medicine; Visit Provider Nurse Practitioner Obstetrics & Gynecology
DX: N92.6 Irregular menstruation, unspecified (principal); Z32.01 Encounter for pregnancy test, result positive
CPT/HCPCS: 36415; 84144; 84702

== ENCOUNTER 2024-12-17 23:58 | Emergency (ER) | payer OTHER, SELFPAY ==
[2024-12-18 00:36] VITALS: RESP 18; TEMP 36.8; O2SAT 100; BMI 51.7
--- NOTE | 2024-12-18 00:36 | HMH.EDGENADL ---
Discharge Plan Disposition Patient Disposition: Home, Self-Care Prescriptions Prescriptions: New lidocaine 5 % adhesive patch,medicated 1 patch topical DAILY PRN (Reason: pain) Qty: 30 0RF Rx Instructions: leave on most painful area for up to 12 hrs No Action dsceuancddzmaxd-ltfcegrnf-GF [Bromfed DM] 2-30-10 mg/5 mL syrup 5 ml PO Q4-6H PRN (Reason: cold symptoms) Qty: 118 0RF Classic 28 mg iron- 800 mcg tablet 1 tab PO DAILY Qty: 30 5RF Referrals Follow up/Referrals: Riley Curtis MD [Primary Care Provider, Family Practice] - See instructions Activity Restrictions/Add. Instructions Additional Instructions/Restrictions: Please use lidocaine patches, continue taking Tylenol, use heating pads, ice etc. as needed for pain. Please follow-up with your primary care provider. Please return to the emergency department if you develop any new or worsening symptoms or become concerned for your health. Clinical Impressions Clinical Impression: URI (upper respiratory infection) Qualifiers: URI type: unspecified viral URI Qualified Code(s): J06.9 - Acute upper respiratory infection, unspecified Print Language Print Language: Maori Discharge ED Provider: Ulises Mota General Adult HPI General Chief complaint: Upper Respiratory Infection Stated complaint: trouble breathing, pain Time Seen by Provider: 12/18/24 00:36 History of Present Illness HPI narrative: 34-year-old female, 6 weeks , history of obesity presents for upper respiratory symptoms. She reports that she has had nasal congestion, rhinorrhea, cough for the last several days. Her cough is now associated with intermittent back pain and chest pain. She denies any significant cardiac or pulmonary history. Reports no purulence with her cough. Related Data Previous Rx's ?Medication ?Instructions ?Recorded nmierltvppozvep-xehnruyurlfaqwy-GE 5 ml PO Q4-6H PRN cold symptoms 11/18/24 2 mg-30 mg-10 mg/5 mL oral syrup #118 mL (Bromfed DM) vits no.126-ferrous fum 1 tab PO DAILY #30 tabs 11/29/24 28 mg iron-folic acid 800 mcg tablet (Classic ) lidocaine 5 % topical patch 1 patch topical DAILY PRN pain #30 12/18/24 ea Allergies Allergy/AdvReac Type Severity Reaction Status Date / Time latex (LATEX) Allergy Mild I-ITCHING Verified 11/18/24 10:46 cinnamon (CINNAMON) Allergy Unknown Unknown Verified 11/18/24 10:46 allergy reaction methylprednisolone Allergy Unknown Unknown Verified 11/18/24 10:46 (METHYLPREDNISOLONE) allergy reaction onion (ONION) Allergy Unknown Unknown Verified 11/18/24 10:46 allergy reaction corn syrup Allergy Swelling Verified 11/18/24 10:46 of Lip/Tongue/Throat peanut Allergy Anaphylaxis Verified 11/18/24 10:46 shellfish derived Allergy Anaphylaxis Verified 11/18/24 10:46 PFSH [facility] Disclaimer: The information contained in this section may have been updated after the patient was seen, as this information can be updated by other users. Medical History Chest pain, pleuritic Gestational diabetes mellitus (GDM) Status post normal vaginal delivery 39 weeks gestation of Encounter for elective induction of labor Low lying placenta with hemorrhage in second trimester, antepartum Maternal obesity affecting , antepartum Hypokalemia Reactive airway disease Surgical History Hx of dilation and curettage Family History Other Cancer Thyroid disorder Social History Smoking Status: Former smoker tobacco type: cigarettes packs per day: 1 (0.5 packs per day) years smoked: 2 quit status: considering quitting second hand exposure: Yes alcohol intake: never substance use type: former substance user and marijuana current occupational status: unemployed Travel in the last 8 weeks?: None household members: spouse and children housing: house lives independently: No marital status: number of children: 3 pets and animals: Yes pets and animals: guinea pig(s) sexually active: Yes caffeine: Yes do you feel safe at home: Yes victim of physical abuse: No victim of emotional abuse: No victim of sexual abuse: No Other Medical History Have you received the Flu Vaccine for this season: No Have you received the Pneumonia Vaccine: No ROS Obtained: Yes All systems reviewed & no additional complaints except as documented Physical Exam General General appearance: alert, in no apparent distress and obese Head Head exam: atraumatic and normocephalic Eye Eye exam: Present normal appearance, PERRL and EOMI ENT ENT exam: Present normal oropharynx and normal external ear exam Neck Neck exam: Present normal inspection and full ROM Chest Chest inspection: Present normal inspection and symmetric chest wall rise; Absent tenderness Respiratory Respiratory exam: Present normal lung sounds bilaterally; Absent respiratory distress Cardiovascular Cardiovascular exam: Present regular rate and normal rhythm Abdominal Exam Abdominal exam: Present soft; Absent distention, tenderness or guarding Extremities Exam Extremities exam: Present normal inspection; Absent edema or joint swelling Back Exam Back exam: Present normal inspection; Absent tenderness Neurological Exam Neurological exam: Present alert and oriented X3; Absent motor sensory deficit Psychiatric Psychiatric exam: Present normal affect and normal mood Skin Skin exam: Present warm, dry and normal color Lymphatic Lymphatic Findings: no adenopathy Medical Decision Making Medical Records Medical records reviewed: Yes I reviewed the patient's medical records. Screening: Per USPSTF and CDC recommendations, given the prevalence of disease in our region, it is our hospital?s policy to screen for HIV and viral Hepatitis for all patients aged 18 and over and those with ongoing risk factors. Chema Inquiry Pt receiving controlled substance: No Chema was queried for this patient: No Vital Signs: 12/18/24 00:36 12/18/24 01:01 12/18/24 01:01 Temperature 98.3 F 98.3 F Temperature Source Oral Oral Pulse Rate 72 Respiratory Rate 18 17 Blood Pressure 115/61 Blood Pressure Source Automatic Cuff Blood Pressure Position Sitting 02 Sat by Pulse Oximetry 100 100 100 Oxygen Delivery Method Room Air Room Air Room Air 12/18/24 01:03 Temperature 98.3 F Temperature Source Oral Pulse Rate 76 Respiratory Rate 17 Blood Pressure 115/61 Blood Pressure Source Automatic Cuff Blood Pressure Position Sitting 02 Sat by Pulse Oximetry Oxygen Delivery Method Room Air Lab Data Lab results reviewed: Yes I reviewed the patient's lab results. Orders (Tests/Meds): ED MEDICATIONS Discontinued Medications Generic Name Dose Route Start Last Admin Trade Name Freq PRN Reason Stop Dose Admin Lidocaine 1 each 12/18/24 00:50 12/18/24 00:59 Lidocaine 5% Transdermal Patch TD 12/18/24 00:51 1 each ONCE ONE Administration Medical Decision Narrative: 34-year-old female, currently 6 weeks , presents for upper respiratory symptoms and cough with back pain/chest pain. History was obtained via interactive discussion with patient. On arrival, patient is [afebrile, hemodynamically stable, satting appropriately, alert, oriented x4, GCS 15], moving all extremities spontaneously. Full physical exam performed and significant for clear lungs bilaterally Differential includes but is not limited to URI, pneumonia, musculoskeletal chest pain, ACS, PE. No significant concern for ACS or PE at this time given history and exam. Patient's pain is best explained by musculoskeletal pain from patient's coughing recently. I considered obtaining chest x-ray, but given she has clear lungs on auscultation I do not think that the radiation is worth the risk at this time. Recommend she continue Tylenol at home, gave her a lidocaine patch and a prescription for lidocaine patches. Return precautions given. Procedures Risk/Benefits of Procedure(s) Were Explained: Yes Critical Care Critical Care Time Critical Care Time: No
--- OUTSIDE RECORDS SUMMARY | 2024-12-18 00:53 | XMS_ITS | Clinical Summary ---
Author Organization [facility] Address [address] [place] [address] Care Team Providers Care Shell Grader Name Role Phone Provider, No Known Primary [...] - season) 2023 INFLUENZA VACCINE 01/19/2025 Insurance [facility] Care Teams Shell Grader Relationship Specialty Start Date End Date Provider, [place] [address] PCP - General 10/02/22
[2024-12-18] MEDS: LIDOCAINE 5% TRANSDERMAL PATCH 1 EACH TD (00:59)
[2024-12-18 01:01] VITALS: BP 115/61; PULSE 72; RESP 17; TEMP 36.8; O2SAT 100
[2024-12-18 01:03] VITALS: BP 115/61; PULSE 76; RESP 17; TEMP 36.8; O2SAT 100
== END 2024-12-18 01:05 | disposition home or self-care (01) ==
LOC: ER 12-18 00:51
PROVIDERS: Emergency Provider Emergency Medicine; PCP Family Medicine
DX: O26.891 Other specified pregnancy related conditions, first trimester (principal); R09.81 Nasal congestion; J06.9 Acute upper respiratory infection, unspecified; R05.9 Cough, unspecified; Z3A.01 Less than 8 weeks gestation of pregnancy; Z87.891 Personal history of nicotine dependence
CPT/HCPCS: 99283

== ENCOUNTER 2024-12-27 11:13 | Outpatient (CLI) | payer OTHER, SELFPAY ==
--- OUTSIDE RECORDS SUMMARY | 2024-12-27 11:16 | XMS_ITS | Clinical Summary ---
Author Organization [facility] Address [address] [place] [address] Care Team Providers Care Mobile Architect Name Role Phone Provider, No Known Primary [...] 10/02/2022 HEPATITIS C SCREENING 10/02/2022 COVID-19 Vaccine (1 - season) 2024 INFLUENZA VACCINE 01/19/2025 Insurance [facility] Care Teams Mobile Architect Relationship Specialty Start Date End Date Provider, [place] [address] PCP - General 10/02/22
[2024-12-27 12:28] LABS: Hematocrit 37.5 % (37.0-47.0); Hemoglobin 12.2 g/dL (12.2-16.2); Immature Granulocytes % 0.4 %; Mean Corpuscular HGB Conc 32.5 g/dL (31.8-35.4); Mean Corpuscular Hemoglobin 28.5 pg (27.0-31.2); Mean Corpuscular Volume 87.6 fl (81-99); Nucleated Red Blood Cells % 0 %; Platelet Count 190 K/mm3 (142-424); Red Blood Count 4.28 M/mm3 (4.20-5.40); Red Cell Distribution Width-SD 42.3 fL; White Blood Count 9.7 K/mm3 (4.8-10.8)
[2024-12-27 13:24] LABS: Hepatitis C Ab Qual. W/ RFX NEGATIVE (Negative)
[2024-12-28 07:44] LABS: Hepatitis B Surface Antigen Negative (Negative)
[2024-12-28 08:14] LABS: Rubella Antibodies, IgG <0.90 index (Immune >0.99)
[2024-12-28 16:16] LABS: RPR W/RFX Titers Nonreactive (Nonreactive)
== END 2024-12-27 23:59 | disposition home or self-care (01) ==
LOC: LAB 11:14
PROVIDERS: PCP Family Medicine; Visit Provider Nurse Practitioner Obstetrics & Gynecology
DX: Z71.6 Tobacco abuse counseling (principal)
CPT/HCPCS: 36415; 85025; 86592; 86762; 86803; 86850; 87086; 87340; 87389

== ENCOUNTER 2024-12-29 13:07 | Outpatient (CLI) | payer OTHER, SELFPAY ==
--- NOTE | 2024-12-29 13:00 | US_ITS ---
PROCEDURE: US OB <= 14 WEEKS FETUS CLINICAL INDICATION: dates and viability COMPARISON: No exams were available for comparison FINDINGS: Transvaginal sonographic images of the pelvis were obtained. There appear to be 2 gestational sacs within the uterine cavity. From her last menstrual period she is 8weeks 5days. An intrauterine gestational sac is present with a pole with a crown-rump length of 2.11cm This correlates to a gestational age of 8weeks 0 days. PORSCHE 08/10/2025 heart tones are present with an FHR of 176bpm. Yolk sac is noted. The yolk sac measures 5.5mm. A 2nd gestational sac is seen with an amnion and nonviable fetus. A yolk sac is seen within this gestational sac as well. The nonviable embryo measures 5 weeks 6 days. cardiac activity is not seen. Doppler flow is negative. The right ovary is not seen today. The left ovary is seen and appears normal. There is a 2.0 cm follicle in the left ovary. There is no fluid in the cul-de-sac. IMPRESSION: 1. There are 2 gestational sacs within the uterine cavity. 2. Sac A has a viable embryo with heart rate activity. Embryo measures 8 weeks 0 days and PORSCHE will be 08/10/2025 3. Sac B contains a nonviable embryo measuring 5 weeks and 6 days. heart rate activity and Doppler are negative. 4. The right ovary is not seen today. The left ovary is seen and appears normal. The left ovary has a 2 cm follicle. 5. No fluid in the cul-de-sac. 6. Suggest repeat ultrasound in 1 week Dictated by: Andres Jeff MD 12/29/2024 15:01 Andres Jeff MD in OV 12/29/2024 15:01
--- OUTSIDE RECORDS SUMMARY | 2024-12-29 13:16 | XMS_ITS | Clinical Summary ---
Author Organization [facility] Address [address] [place] [address] Care Team Providers Care Wood Drilling Machine Operator Name Role Phone Provider, No Known Primary [...] - season) 2024 INFLUENZA VACCINE 01/19/2025 Insurance [facility] Care Teams Wood Drilling Machine Operator Relationship Specialty Start Date End Date Provider, [place] [address] PCP - General 10/02/22
== END 2024-12-29 23:59 | disposition home or self-care (01) ==
LOC: RAD 13:08
PROVIDERS: PCP Family Medicine; Visit Provider Nurse Practitioner Obstetrics & Gynecology
DX: O30.001 Twin pregnancy, unspecified number of placenta and unspecified number of amniotic sacs, first trimester (principal); O36.80X2 Pregnancy with inconclusive fetal viability, fetus 2; O26.841 Uterine size-date discrepancy, first trimester; Z3A.08 8 weeks gestation of pregnancy
CPT/HCPCS: 76801

== ENCOUNTER 2025-03-12 10:32 | Emergency (ER) | payer OTHER, SELFPAY ==
[2025-03-12] VITALS (8 sets, daily range): BP systolic 134–136; BP diastolic 76–107; PULSE 74–95; RESP 14–15; TEMP 36.7–36.8; O2SAT 96–100; BMI 50.6
--- OUTSIDE RECORDS SUMMARY | 2025-03-12 10:42 | XMS_ITS | Clinical Summary ---
Author Organization [facility] Address [address] [place] [address] Care Team Providers Care Grade Setter Name Role Phone Provider, No Known Primary [...] ANNUAL PHYSICAL 10/02/2022 HEPATITIS C SCREENING 10/02/2022 INFLUENZA VACCINE 11/19/2024 Insurance [facility] [facility] [place] Care Teams Grade Setter Relationship Specialty Start Date End Date Provider, [place] [address] PCP - General 10/02/22
[2025-03-12 10:43] LABS: Microscopic, Urine URINE MICROSCOPIC (MICROSCOPIC)
--- NOTE | 2025-03-12 10:45 | US_ITS ---
PROCEDURE INFORMATION: Exam: US , Transvaginal Exam date and time: 03/12/2025 11:31 AM Age: 34 years old Clinical indication: Lmp or gestational age (in weeks): 19w1d; Antepartum complications; Bleeding; ; Done tabd also; Additional info: 18wks, vaginal spotting, abdominal cramping LABS AND CLINICAL REPORTS: Gestational age (Established): 19 w 1 d Estimated due date (Established): 08/05/2025 TECHNIQUE: Imaging protocol: Real-time transvaginal obstetrical ultrasound of the maternal pelvis with image documentation. Transvaginal imaging was used for better evaluation of the fetus, adnexa, and/or cervix. Total images: 43 COMPARISON: US OB <= 14 WEEKS FETUS 12/29/2024 1:10 PM FINDINGS: Gestation: Single living intrauterine gestation. abdomen within normal limits. profile within normal limits. heart rate: 146 bpm presentation and position: Breech presentation. Placenta: Posterior placenta. No evidence of placental previa. spine: spine within normal limits. Umbilical cord and insertion: Three-vessel cord is within normal limits. lower limbs: legs within normal limits. BIOMETRY: Gestational age (AUA): 19 w 4 d Estimated due date (AUA): 08/02/2025 Estimated weight: Estimated weight 301 g (46%). Biparietal diameter (BPD): BPD 4.4 cm, 19 weeks 2 days Head circumference (HC): HC 16.8 cm, 19 weeks 4 days Abdominal circumference (AC): AC 14.2 cm, 19 weeks 5 days Femur length (FL): FL 3.1 cm, 19 weeks 5 days MATERNAL: Cervix: Cervical length measures 3.33 cm. IMPRESSION: 1. Single living intrauterine gestation. 2. Average gestational age (AUA) 19 weeks 4 days. 3. heart rate recorded to be 146 bpm. 4. Estimated date of delivery (AUA) 08/02/2025.
--- NOTE | 2025-03-12 10:46 | HMH.EDGENADL ---
Discharge Plan Disposition Patient Disposition: Home, Self-Care Prescriptions Prescriptions: No Action Classic 28 mg iron- 800 mcg tablet 1 tab PO DAILY Qty: 30 5RF Referrals Follow up/Referrals: Riley Curtis MD [Primary Care Provider, [facility]] - See instructions Activity Restrictions/Add. Instructions Additional Instructions/Restrictions: Encourage you to follow-up with Dr. Jeff if you continue to have bleeding. Your baby appears to be doing well on today's visit. continue to monitor for any signs of worsening vaginal bleeding, abdominal pain, back pain and return to the emergency department or contact your OB physician's office if you become concerned for your health for any reason Clinical Impressions Clinical Impression: Vaginal bleeding during Instructions Patient Instructions: DI for Urinary Tract Infection (UTI), DI for Urinary Tract Infection in Children Print Language Print Language: Welsh Discharge ED Provider: Jayjay Mayo Adult HPI General Chief complaint: Urogenital-Female Stated complaint: 18 weeks and bleeding Time Seen by Provider: 03/12/25 10:41 History of Present Illness HPI narrative: Elizabeth Daniels is a 34y female A1, current tobacco use, who presents to the emergency department currently 18 weeks with vaginal bleeding. Patient states that she had some abdominal cramping yesterday but thought it may have been something that she ate. She states that this morning about an hour before arriving to the emergency department, she had some vaginal spotting after urinating. She states that she has not had any vaginal bleeding with this thus far. She states that she has not had any complications with this thus far. She does state that they initially thought that she had twins but that one of the twins was nonviable and was not growing. She denies any current abdominal pain or back pain. She denies any dysuria or hematuria. She does state that she has had urinary tract infections in the past. She states in the past, she has had vaginal bleeding with pregnancies because they placenta was in the wrong spot Related Data Previous Rx's ?Medication ?Instructions ?Recorded vits no.126-ferrous fum 1 tab PO DAILY #30 tabs 11/29/24 28 mg iron-folic acid 800 mcg tablet (Classic ) Allergies Allergy/AdvReac Type Severity Reaction Status Date / Time latex (LATEX) Allergy Mild I-ITCHING Verified 02/23/25 14:21 cinnamon (CINNAMON) Allergy Unknown Unknown Verified 02/23/25 14:21 allergy reaction methylprednisolone Allergy Unknown Unknown Verified 02/23/25 14:21 (METHYLPREDNISOLONE) allergy reaction onion (ONION) Allergy Unknown Unknown Verified 02/23/25 14:21 allergy reaction corn syrup Allergy Swelling Verified 02/23/25 14:21 of Lip/Tongue/Throat peanut Allergy Anaphylaxis Verified 02/23/25 14:21 shellfish derived Allergy Anaphylaxis Verified 02/23/25 14:21 [facility] Disclaimer: The information contained in this section may have been updated after the patient was seen, as this information can be updated by other users. Medical History (Updated 03/12/25 @ 13:21 by Jayjay Mayo MD) Maternal obesity affecting , antepartum Chest pain, pleuritic Gestational diabetes mellitus (GDM) Status post normal vaginal delivery 39 weeks gestation of Encounter for elective induction of labor Low lying placenta with hemorrhage in second trimester, antepartum Hypokalemia Reactive airway disease Surgical History Hx of dilation and curettage Family History Other Cancer Thyroid disorder Social History Smoking Status: Current every day smoker tobacco type: cigarettes packs per day: 1 (0.5 packs per day) years smoked: 2 quit status: considering quitting second hand exposure: Yes alcohol intake: never substance use type: former substance user and marijuana current occupational status: unemployed Travel in the last 8 weeks?: None household members: spouse and children housing: house lives independently: No marital status: number of children: 3 pets and animals: Yes pets and animals: guinea pig(s) sexually active: Yes caffeine: Yes do you feel safe at home: Yes victim of physical abuse: No victim of emotional abuse: No victim of sexual abuse: No Have you lived/traveled outside US in past 30 days?: No Contact w/someone who lives/traveled outside US past 30 days?: No Exposure to someone with infectious disease in past 14 days?: No Do you have a fever (greater than 100.4 F or 38 C)?: No Have you tested positive for COVID-19?: No Exposed to someone with COVID-19 in past 14 days?: No Do you have a sore throat?: No Do you have a cough?: No Do you have any weakness?: No Do you have any diarrhea?: No Are you experiencing any unusual bleeding?: No Do you have any muscle aches/pain?: No Do you have any abdominal pain?: No Are you experiencing loss of taste or smell?: No Other Medical History Have you received the Flu Vaccine for this season: No Have you received the Pneumonia Vaccine: No ROS Obtained: Yes Systems reviewed as appropriate & no additional complaints except as documented Physical Exam General General appearance: alert, in no apparent distress and obese Head Head exam: atraumatic Eye Eye exam: Present normal appearance ENT ENT exam: Present normal external ear exam Neck Neck exam: Present full ROM Chest Chest inspection: Present symmetric chest wall rise Respiratory Respiratory exam: Present normal lung sounds bilaterally; Absent respiratory distress, wheezes or stridor Cardiovascular Cardiovascular exam: Present regular rate and normal rhythm Abdominal Exam Abdominal exam: Present soft; Absent tenderness, guarding or rebound Extremities Exam Extremities exam: Present normal inspection Back Exam Back exam: Present normal inspection Neurological Exam Neurological exam: Present alert and oriented X3 Psychiatric Psychiatric exam: Present normal affect Skin Skin exam: Present warm and dry Medical Decision Making Medical Records Screening: Per USPSTF and CDC recommendations, given the prevalence of disease in our region, it is our hospital?s policy to screen for HIV and viral Hepatitis for all patients aged 18 and over and those with ongoing risk factors. Chema Inquiry Pt receiving controlled substance: No Vital Signs: 03/12/25 10:42 03/12/25 10:59 03/12/25 11:15 Temperature 98.3 F Temperature Source Oral Pulse Rate 95 H 80 Pulse Rate [Right Radial] 94 H Respiratory Rate 14 Blood Pressure 134/107 H Blood Pressure [Right Arm] 134/107 H Blood Pressure Mean [Right Arm] 116 Blood Pressure Source [Right Arm] Automatic Cuff Blood Pressure Position [Right Arm] Sitting 02 Sat by Pulse Oximetry 96 99 98 Oxygen Delivery Method Room Air Room Air Room Air 03/12/25 11:30 03/12/25 12:18 03/12/25 12:30 Temperature Temperature Source Pulse Rate 81 83 83 Pulse Rate [Right Radial] Respiratory Rate Blood Pressure 136/76 Blood Pressure [Right Arm] Blood Pressure Mean [Right Arm] Blood Pressure Source [Right Arm] Blood Pressure Position [Right Arm] 02 Sat by Pulse Oximetry 100 97 100 Oxygen Delivery Method Room Air Room Air Room Air 03/12/25 13:00 Temperature Temperature Source Pulse Rate 80 Pulse Rate [Right Radial] Respiratory Rate Blood Pressure Blood Pressure [Right Arm] Blood Pressure Mean [Right Arm] Blood Pressure Source [Right Arm] Blood Pressure Position [Right Arm] 02 Sat by Pulse Oximetry 99 Oxygen Delivery Method Room Air Lab Data Lab Results 03/12/25 10:38: Urine Color Yellow, Urine Appearance Clear, Urine pH 7.0, Ur Specific [place] <= 1.005, Urine Protein Negative, Urine Glucose (UA) Negative, Urine Ketones Negative, Urine Blood Negative, Urine Nitrate Negative, Urine Bilirubin Negative, Urine Urobilinogen 0.2, Ur Leukocyte Esterase Negative, Urine RBC None, Urine WBC Occasional, Ur Squamous Epith Cells 3-5, Urine Bacteria Trace 03/12/25 10:48: WBC 9.8, RBC 4.40, Hgb 13.1, Hct 38.7, MCV 88.0, MCH 29.8, MCHC 33.9, RDW 13.3, Plt Count 178, MPV 11.5 H, Neut % (Auto) 69.6, Lymph % (Auto) 20.8, [place] % (Auto) 5.4, Eos % (Auto) 3.5, Baso % (Auto) 0.2, Neut # (Auto) 6.9, Lymph # (Auto) 2.0, [place] # (Auto) 0.5, Eos # (Auto) 0.3, Baso # (Auto) 0.0, Sodium 132 L, Potassium 3.5, Chloride 105, Carbon Dioxide 23, Anion Gap 7.5, BUN 7, Creatinine 0.60, Estimated Creat Clear 136, Estimated GFR 116, Est GFR ( Amer) 140, Glucose 87, Calcium 9.2, Total Bilirubin 0.5, AST 21, ALT 11 L, Alkaline Phosphatase 90, Total Protein 6.9, Albumin 3.8, Globulin 3.1, Albumin/Globulin Ratio 1.2, Lipase 56, HCG, Quant 39904 H 03/12/25 10:50: Lactate 1.1 03/12/25 10:48 03/12/25 10:48 Orders (Tests/Meds): ORDERS Category Date Time Status ABO/RH Type Stat BBK 03/12/25 11:10 Results Beta HCG, Quant [HCG,Quantitative] Stat Lab 03/12/25 10:48 Completed CBC w/Auto Diff [Complete Blood Count Auto Diff] Stat Lab 03/12/25 10:48 Completed CMP [Comprehensive Metabolic Panel] Stat Lab 03/12/25 10:48 Completed Lactic Acid Stat Lab 03/12/25 10:50 Completed Lipase Stat Lab 03/12/25 10:48 Completed UA [Urinalysis and Microscopic] Stat Lab 03/12/25 10:38 Completed US OB >= 14 weeks Fetus Routine Ultrasound 03/12/25 Completed US OB transvaginal Stat Ultrasound 03/12/25 10:45 Completed Medical Decision Narrative: Elizabeth Daniels is a 34y female A1, current tobacco use, who presents to the emergency department currently 18 weeks with vaginal bleeding. Patient states that she had some abdominal cramping yesterday but thought it may have been something that she ate. She states that this morning about an hour before arriving to the emergency department, she had some vaginal spotting after urinating. She states that she has not had any vaginal bleeding with this thus far. She states that she has not had any complications with this thus far. She does state that they initially thought that she had twins but that one of the twins was nonviable and was not growing. She denies any current abdominal pain or back pain. She denies any dysuria or hematuria. She does state that she has had urinary tract infections in the past. She states in the past, she has had vaginal bleeding with pregnancies because they placenta was in the wrong spot . On arrival, patient is hemodynamically stable, in no acute distress, breathing comfortably on room air. Physical exam, stated above, revealed overall well-appearing female in no distress. Abdomen is soft, nontender. cardiopulmonary exam is unremarkable. Differential diagnosis includes, but is not limited to: Threatened miscarriage, inevitable miscarriage, placenta previa, vasa previa, placenta accreta, demise, help syndrome, among others. The most morbid conditions were considered and workup was based on these. Workup in the emergency room included: Transvaginal ultrasound, CBC with differential, CMP, lactic acid, lipase, quantitative beta-hCG. Quantitative beta-hCG is elevated at 14,154, lipase normal at 56. Liver enzymes unremarkable nonactionable. Lactate normal at 1.1. Mildly low sodium of 132 but otherwise unremarkable nonactionable CMP. No HERMINIA. No leukocytosis, no anemia. Platelets within normal limits. Urinalysis shows no evidence of infection and no significant bacteria burden. She is not having any urinary symptoms either and I do not feel that she would benefit from antibiotics at this time. Transvaginal ultrasound was interpreted by me personally. Single live intrauterine measuring approximately 19 weeks and 4 days. heart rate of 146 bpm. Estimated date of delivery is. Posterior placenta with no evidence of placenta previa. On reassessment, patient leslee in stable condition. She has not had any additional vaginal bleeding here in the emergency department. Her workup today is unremarkable for any evidence of demise could be warehouse representative of a threatened miscarriage. Do feel patient is appropriate discharge at this time with strict return precautions and to follow-up with her OB physician. All questions were answered. She demonstrated understanding and was in agreement this plan. She was then discharged from the emergency department in stable condition Critical Care Critical Care Time Critical Care Time: No
--- NOTE | 2025-03-12 10:51 | PC.NURSE ---
call made to [facility] to call in ultrasound
[2025-03-12 10:56] LABS: Bilirubin,Urine Negative (Negative); Color,Urine YELLOW (Yellow); Glucose,Urine (UA) Negative (Negative); Ketones,Urine Negative (Negative); Leukocyte Esterase,Urine Negative (Negative); PH,Urine 7.0 (5.0-8.5); Protein,Urine Negative (Negative); Specific Gravity, Urine <= 1.005 (1.005-1.030); Urobilinogen,Urine 0.2 EU/dl (0.2)
[2025-03-12 10:58] LABS: Hematocrit 38.7 % (37.0-47.0); Hemoglobin 13.1 g/dL (12.2-16.2); Immature Granulocytes % 0.5 %; Mean Corpuscular HGB Conc 33.9 g/dL (31.8-35.4); Mean Corpuscular Hemoglobin 29.8 pg (27.0-31.2); Mean Corpuscular Volume 88.0 fl (81-99); Nucleated Red Blood Cells % 0 %; Platelet Count 178 K/mm3 (142-424); Red Blood Count 4.40 M/mm3 (4.20-5.40); Red Cell Distribution Width-SD 43.1 fL; White Blood Count 9.8 K/mm3 (4.8-10.8)
--- NOTE | 2025-03-12 11:05 | PC.NURSE ---
patient stuck twice by this rn for iv, blood recieved, no iv at this time. provider states we may not need line
[2025-03-12 11:30] LABS: Alanine Aminotransferase 11 U/L (12-78); Albumin Level 3.8 g/dl (3.5-5.0); Albumin/Globulin Ratio 1.2 (1.1-1.8); Alkaline Phosphatase 90 U/L (38-126); Anion Gap 7.5 mEq/L (5-15); Aspartate Amino Transferase 21 U/L (14-36); Bilirubin,Total 0.5 mg/dl (0.2-1.3); Blood Urea Nitrogen 7 mg/dl (7-17); Calcium 9.2 mg/dl (8.4-10.2); Carbon Dioxide 23 mmol/L (22.0-30.0); Chloride 105 mmol/L (98-107); Creatinine Clearance Estimated 136 mL/min (50-200); Creatinine,Serum 0.60 mg/dl (0.52-1.04); Estimated Glomerular Filt Rate 116 ml/min (>60); GFR (African American) 140 ML/MIN (>60); Globulin 3.1 g/dL (1.3-3.2); Glucose 87 mg/dl (74-100); Lipase 56 U/L (23-300); Potassium 3.5 mmoL/L (3.5-5.1); Sodium 132 mmol/L (136-145); Total Protein,Serum 6.9 g/dl (6.3-8.2)
[2025-03-12 11:37] LABS: Bacteria,Urine Trace /lpf; WBC,Urine Occasional #/hpf (0-3)
== END 2025-03-12 13:28 | disposition home or self-care (01) ==
PROVIDERS: Emergency Provider Student in an Organized Health Care Education/Training Program; PCP Family Medicine
DX: O46.92 Antepartum hemorrhage, unspecified, second trimester (principal); E87.1 Hypo-osmolality and hyponatremia; O99.332 Smoking (tobacco) complicating pregnancy, second trimester; F17.210 Nicotine dependence, cigarettes, uncomplicated; Z3A.19 19 weeks gestation of pregnancy
CPT/HCPCS: 36415; 76805; 76817; 80053; 81001; 83605; 83690; 84702; 85025; 86900; 86901; 99284

== ENCOUNTER 2025-03-30 10:40 | Outpatient (CLI) | payer OTHER, SELFPAY ==
--- NOTE | 2025-03-30 10:30 | US_ITS ---
PROCEDURE: US OB /MATERNAL DETAIL CLINICAL INDICATION: 20 week anatomy COMPARISON: US US OB <= 14 WEEKS FETUS from 12/29/2024 US US OB TRANSVAGINAL from 03/12/2025 FINDINGS: Transabdominal sonographic images of the pelvis were obtained. From her established due date she is 21 weeks 2 days. Single viable intrauterine gestation. Breech position. Placenta: Posteriorplacenta grade 1. There is a 4.5 cm anterior fluid-filled sac which is consistent with her earliest ultrasound showing a vanishing twin. There is an average amount of fluid. The cervix appears satisfactory. Closed and measuring 3.55 cm in length. Complete survey performed and was unremarkable on the submitted images as in PACS. No discrete anomalies identified on survey imaging by technologist. Active fetus. Three-vessel cord with satisfactory umbilical cord insertion. 4- chamber heart noted. Situs, aortic arch, LVOT, RVOT, three-vessel view appear normal. Survey of brain & ventricles Unremarkable. Cerebellum, thalamus, choroid plexus, cisterna magna appear normal. Face and neck survey unremarkable. Profile, nasion, lips and nose appeared normal. Diaphragm and chest views unremarkable. Abdomen: Both kidneys noted and unremarkable. Stomach and bladder noted and satisfactory. Spine: Survey of the spine satisfactory with no anomalies identified nor imaged. Cervical, thoracic, lower spine appear normal. Both arms and legs noted. Amniotic Fluid: Adequate. MVP 3.76 cm Measurements: Average ultrasound age 22weeks 0 days. Estimated due date by ultrasound age 0408/03/2025. Estimated weight 451g BPD = 22weeks 1day HC = 21weeks 6days AC = 22weeks 4days FL = 21weeks 0 days Growth Percentile= 71 Heart Rate = 147bpm Cerebellum = 21weeks 2days Humerus = 22weeks 5days HC/AC is 1.11 FL/BPD is 0.65 FL/AC is 0.2 IMPRESSION: 1. Viable fetus in the breech presentation with posterior placenta grade 1. 2. The fluid is within normal limits with an MVP 3.76 cm. 3. Anatomical scan appears normal. 4. There were no images of the choroid plexus but the web specialist informed me that this appeared normal. 5. There is a 4.5 cm anterior hypoechoic sac consistent with her vanishing twin. 6. biometry is consistent dates. Dictated by: Andres Jeff MD 03/30/2025 17:17 Andres Jeff MD in OV 03/30/2025 17:17
== END 2025-03-30 23:59 | disposition home or self-care (01) ==
LOC: RAD 10:41
PROVIDERS: PCP Family Medicine; Visit Provider Nurse Practitioner Obstetrics & Gynecology
DX: O28.3 Abnormal ultrasonic finding on antenatal screening of mother (principal); O32.1XX0 Maternal care for breech presentation, not applicable or unspecified; O99.322 Drug use complicating pregnancy, second trimester; O09.292 Supervision of pregnancy with other poor reproductive or obstetric history, second trimester; F12.90 Cannabis use, unspecified, uncomplicated; Z86.32 Personal history of gestational diabetes; Z3A.21 21 weeks gestation of pregnancy
CPT/HCPCS: 76811

== ENCOUNTER 2025-04-14 21:00 | Outpatient (CLI) | payer OTHER, SELFPAY ==
--- OUTSIDE RECORDS SUMMARY | 2025-04-14 21:05 | XMS_ITS | Clinical Summary ---
Author Organization [employer] [facility] lin Address [address] [place] [address] Care Team Providers Care Driving Instructor Name Role Phone Unavailable Primary Care Provider Unavailabl e Social History Tobacco Use Types Packs/Day Years Used Date Smoking Tobacco: Never Assessed Comments Unknown Sex and Gender Information Value Date Recorded Sex Assigned at Not on file Legal Sex Female 7:52 AM EDT Gender Identity Not on file Sexual Orientation Not on file Last Filed Vital Signs Vital Sign Reading Time Taken Comments Blood Pressure - - Pulse 98 01/19/2021 2:28 PM EDT Temperature 36.9 C (98.4 F) 01/19/2021 2:28 PM EDT Respiratory Rate - - Oxygen Saturation 98% 01/19/2021 2:28 PM EDT Inhaled Oxygen Concentration - - Weight - - Height - - Body Mass Index - - Plan of Treatment Not on file Medical Devices Not on file Insurance [facility]
--- OUTSIDE RECORDS SUMMARY | 2025-04-14 21:05 | XMS_ITS | Clinical Summary ---
Author Organization [facility] Address [address] [place] [address] Care Team Providers Care Metal Grinder Name Role Phone Provider, No Known Primary [...] Insurance [employer] [place] Care Teams Metal Grinder Relationship Specialty Start Date End Date Provider, [place] [address] PCP - General 10/02/22
[2025-04-14 21:11] VITALS: BMI 50.6
[2025-04-14 21:17] VITALS: BP 122/76; PULSE 91; RESP 18; TEMP 36.6; O2SAT 97; BMI 50.6
[2025-04-14 21:24] LABS: Microscopic, Urine URINE MICROSCOPIC (MICROSCOPIC)
[2025-04-14 21:28] LABS: Bilirubin,Urine Negative (Negative); Color,Urine YELLOW (Yellow); Glucose,Urine (UA) Negative (Negative); Ketones,Urine Negative (Negative); Leukocyte Esterase,Urine Negative (Negative); PH,Urine 5.5 (5.0-8.5); Protein,Urine 1+ (Negative); Specific Gravity, Urine >= 1.030 (1.005-1.030); Urobilinogen,Urine 0.2 EU/dl (0.2)
[2025-04-14 21:40] LABS: Bacteria,Urine 2+ /lpf; Mucus,Urine 1+ /lpf
[2025-04-14 22:40] LABS: Chloride 106 mmol/L (98-107)
[2025-04-14 22:41] LABS: Albumin Level 3.5 g/dl (3.5-5.0); Potassium 3.6 mmoL/L (3.5-5.1); Sodium 136 mmol/L (136-145)
[2025-04-14 22:44] LABS: Alanine Aminotransferase 13 U/L (12-78); Albumin/Globulin Ratio 1.1 (1.1-1.8); Alkaline Phosphatase 83 U/L (38-126); Anion Gap 7.6 mEq/L (5-15); Aspartate Amino Transferase 17 U/L (14-36); Bilirubin,Total 0.4 mg/dl (0.2-1.3); Blood Urea Nitrogen 13 mg/dl (7-17); Carbon Dioxide 26 mmol/L (22.0-30.0); Creatinine Clearance Estimated 116 mL/min (50-200); Creatinine,Serum 0.70 mg/dl (0.52-1.04); Estimated Glomerular Filt Rate 97 ml/min (>60); GFR (African American) 117 ML/MIN (>60); Globulin 3.1 g/dL (1.3-3.2); Glucose 105 mg/dl (74-100); Total Protein,Serum 6.6 g/dl (6.3-8.2)
[2025-04-14 22:45] LABS: Calcium 9.4 mg/dl (8.4-10.2)
[2025-04-14 22:48] LABS: Hematocrit 35.2 % (37.0-47.0); Hemoglobin 11.9 g/dL (12.2-16.2); Immature Granulocytes % 0.7 %; Mean Corpuscular HGB Conc 33.8 g/dL (31.8-35.4); Mean Corpuscular Hemoglobin 30.0 pg (27.0-31.2); Mean Corpuscular Volume 88.7 fl (81-99); Nucleated Red Blood Cells % 0 %; Platelet Count 185 K/mm3 (142-424); Red Blood Count 3.97 M/mm3 (4.20-5.40); Red Cell Distribution Width-SD 44.0 fL; White Blood Count 12.3 K/mm3 (4.8-10.8)
== END 2025-04-14 23:35 | disposition home or self-care (01) ==
LOC: OBOUT 21:03 → OB 21:04
PROVIDERS: PCP Family Medicine; Visit Provider Obstetrics & Gynecology
DX: O99.891 Other specified diseases and conditions complicating pregnancy (principal); O99.332 Smoking (tobacco) complicating pregnancy, second trimester; R10.9 Unspecified abdominal pain; Z3A.23 23 weeks gestation of pregnancy
CPT/HCPCS: 80053; 81001; 85025; 87086; 99213

== ENCOUNTER 2025-04-20 08:57 | Outpatient (CLI) | payer OTHER, SELFPAY ==
--- OUTSIDE RECORDS SUMMARY | 2025-04-20 08:59 | XMS_ITS | Clinical Summary ---
Author Organization [facility] Address [address] [place] [address] Care Team Providers Care Check Clerk Name Role Phone Provider, No Known Primary [...] Insurance [employer] [place] Care Teams Check Clerk Relationship Specialty Start Date End Date Provider, [place] [address] PCP - General 10/02/22
--- NOTE | 2025-04-20 09:00 | US_ITS ---
PROCEDURE INFORMATION: Exam: US Abdomen, Limited; Right Upper Quadrant Exam date and time: 04/20/2025 9:03 AM Age: 34 years old Clinical indication: Abdominal pain; ; Additional info: Ruq pain TECHNIQUE: Imaging protocol: Real time ultrasound of the abdomen with image documentation. Limited exam focused on the right upper quadrant. COMPARISON: US ABDOMEN COMPLETE 05/25/2024 7:20 AM FINDINGS: Liver: Unremarkable. No masses. Gallbladder: Cholelithiasis. No gallbladder wall thickening. No pericholecystic fluid. Biliary ducts: Normal. No stones. No dilation. Pancreas: Visualized pancreas is unremarkable. Right kidney: Unremarkable. No mass. No hydronephrosis. IMPRESSION: Cholelithiasis without evidence of acute cholecystitis.
== END 2025-04-20 23:59 | disposition home or self-care (01) ==
LOC: RAD 08:57
PROVIDERS: PCP Family Medicine; Visit Provider Obstetrics & Gynecology
DX: O26.619 Liver and biliary tract disorders in pregnancy, unspecified trimester (principal); K80.20 Calculus of gallbladder without cholecystitis without obstruction; Z3A.00 Weeks of gestation of pregnancy not specified
CPT/HCPCS: 76705

== ENCOUNTER 2025-04-20 18:27 | Emergency (ER) | payer OTHER, SELFPAY ==
[2025-04-20 18:29] VITALS: BP 133/79; PULSE 91; RESP 20; TEMP 36.7; O2SAT 100; BMI 51.0
--- NOTE | 2025-04-20 18:42 | ED_ITS ---
Discharge Plan Disposition Patient Disposition: Home, Self-Care Prescriptions Prescriptions: No Action terconazole 0.4 % cream 1 appful vaginal HS 7 Days Qty: 45 3RF nitrofurantoin monohyd/m-cryst [Macrobid] 100 mg capsule 100 mg PO BID 7 Days Qty: 14 0RF Rx Instructions: must administer with a meal/food Classic 28 mg iron- 800 mcg tablet 1 tab PO DAILY Qty: 30 5RF ursodiol 300 mg capsule 300 mg PO BID Qty: 60 0RF Referrals Follow up/Referrals: Riley Curtis MD [Primary Care Provider, Family Practice] - See instructions Clinical Impressions Clinical Impression: Symptomatic cholelithiasis Instructions Patient Instructions: DI for Acute Abdominal Pain Print Language Print Language: Salvadorean Discharge ED Provider: Bairon Rios General Adult HPI General Chief complaint: Abdominal Pain Stated complaint: right side pain and back pain Time Seen by Provider: 04/20/25 18:35 History of Present Illness HPI narrative: Patient is a 34-year-old female G7, P5 past medical history described above intrauterine demise currently 24 weeks and 5 days who presents emergency department for evaluation of epigastric pain. Patient states that she has been dealing with epigastric pain for over a year however has gotten much worse over the last few days. It is epigastric and radiates to the right upper quadrant and through to her back. No lower abdominal pain no dysuria no vaginal bleeding or discharge no other acute complaints at this time. Of note patient was seen recently and has gallstones on her ultrasound and was prescribed ursodiol by her OB to see if this would help however her symptoms are progressing and she presents here for continued evaluation. Please note that above description of symptoms, in this electronic medical record under categorization of recalled from ER triage doctor by RN are reflective of an initial nursing assessment, however, is not reflective of my full history and physical exam that was personally taken and clarified. Consequentially, this preceding description of symptoms, which may include the patient's categorized chief complaint in the EMR, do not reflect my personal clinical impression, and the ultimate description of history of present illness and patient stated complaints should be deferred to this section of the note. Unless stated otherwise or congruent with this section of the note, additional signs, symptoms, or incongruence should be interpreted as inaccurate with my clinical impression. Related Data Previous Rx's ?Medication ?Instructions ?Recorded vits no.126-ferrous fum 1 tab PO DAILY #30 ta bs 11/29/24 28 mg iron-folic acid 800 mcg tablet (Classic ) terconazole 0.4 % vaginal cream 1 appful vaginal HS 7 days #45 03/28/25 grams nitrofurantoin 100 mg PO BID 7 days #14 cap s 04/08/25 monohydrate/macrocrystals 100 mg capsule (Macrobid) ursodiol 300 mg capsule 300 mg PO BID #60 caps 04/15 Allergies Allergy/AdvReac Type Severity Reaction Status Date / Time latex (LATEX) Allergy Mild I-ITCHING Verified 03/31/25 16:15 cinnamon (CINNAMON) Allergy Unknown Unknown Verified 03/31/25 16:15 allergy reaction methylprednisolone Allergy Unknown Unknown Verified 03/31/25 16:15 (METHYLPREDNISOLONE) allergy reaction onion (ONION) Allergy Unknown Unknown Verified 03/31/25 16:15 allergy reaction corn syrup Allergy Swelling Verified 03/31/25 16:15 of Lip/Tongue/Throat peanut Allergy Anaphylaxis Verified 03/31/25 16:15 shellfish derived Allergy Anaphylaxis Verified 03/31/25 16:15 [facility] Disclaimer: The information contained in this section may have been updated after the patient was seen, as this information can be updated by other users. Medical History Hematuria with proteinuria Maternal obesity affecting , antepartum Chest pain, pleuritic Gestational diabetes mellitus (GDM) Status post normal vaginal delivery 39 weeks gestation of Encounter for elective induction of labor Low lying placenta with hemorrhage in second trimester, antepartum Hypokalemia Reactive airway disease Surgical History Hx of dilation and curettage Family History Other Cancer Thyroid disorder Social History Smoking Status: Current every day smoker tobacco type: cigarettes packs per day: 1 (0.5 packs per day) years smoked: 2 quit status: considering quitting second hand exposure: Yes alcohol intake: never substance use type: former substance user and marijuana current occupational status: unemployed Travel in the last 8 weeks?: None household members: spouse and children housing: house lives independently: No marital status: number of children: 3 pets and animals: Yes pets and animals: guinea pig(s) sexually active: Yes caffeine: Yes do you feel safe at home: Yes victim of physical abuse: No victim of emotional abuse: No victim of sexual abuse: No Have you lived/traveled outside [place] in past 30 days?: No Contact w/someone who lives/traveled outside US past 30 days?: No Exposure to someone with infectious disease in past 14 days?: No Do you have a fever (greater than 100.4 F or 38 C)?: No Have you tested positive for COVID-19?: No Exposed to someone with COVID-19 in past 14 days?: No Do you have a sore throat?: No Do you have a cough?: No Do you have any weakness?: No Do you have any diarrhea?: No Are you experiencing any unusual bleeding?: No Do you have any muscle aches/pain?: No Do you have any abdominal pain?: No Are you experiencing loss of taste or smell?: No Other Medical History Have you received the Flu Vaccine for this season: No Have you received the Pneumonia Vaccine: No ROS Obtained: Yes Systems reviewed as appropriate & no additional complaints except as documented Physical Exam General General appearance: alert and in no apparent distress Head Head exam: atraumatic and normocephalic Eye Eye exam: Present PERRL and EOMI ENT ENT exam: Present mucous membranes moist Neck Neck exam: Present normal inspection Chest Chest inspection: Present normal inspection and symmetric chest wall rise Respiratory Respiratory exam: Present normal lung sounds bilaterally; Absent respiratory distress Cardiovascular Cardiovascular exam: Present regular rate and normal rhythm Abdominal Exam Abdominal exam: Present soft, tenderness (Right upper quadrant, epigastric) and guarding (Voluntary) Extremities Exam Extremities exam: Present normal inspection Neurological Exam Neurological exam: Present alert Psychiatric Psychiatric exam: Present normal affect Skin Skin exam: Present warm and dry Medical Decision Making Medical Records Screening: Per USPSTF and CDC recommendations, given the prevalence of disease in our region, it is our hospital?s policy to screen for HIV and viral Hepatitis for all patients aged 18 and over and those with ongoing risk factors. [place] Inquiry Pt receiving controlled substance: No Vital Signs: 04/20/25 18:29 Temperature 98.1 F Temperature Source Oral Pulse Rate [Left Radial] 91 H Respiratory Rate 20 Blood Pressure [Right Arm] 133/79 Blood Pressure Mean [Right Arm] 97 02 Sat by Pulse Oximetry 100 Oxygen Delivery Method Room Air Lab Data Lab Results 04/20/25 18:53: Urine Color Yellow, Urine Appearance Clear, Urine pH 5.5, Ur Specific Trevor >= 1.030, Urine Protein Negative, Urine Glucose (UA) Negative, Urine Ketones Negative, Urine Blood Negative, Urine Nitrate Negative, Urine Bilirubin Negative, Urine Urobilinogen 0.2, Ur Leukocyte Esterase Negative, Urine RBC 3-5, Urine WBC 5-10, Ur Squamous Epith Cells 10-20, Urine Bacteria 2+, Urine Mucus 2+ 04/20/25 19:30: WBC 12.8 H, RBC 4.41, Hgb 13.1, Hct 38.7, MCV 87.8, MCH 29.7, MCHC 33.9, RDW 13.6, Plt Count 195, MPV 11.4 H, Neut % (Auto) 75.1, Lymph % (Auto) 15.5, Cuming % (Auto) 6.6, Eos % (Auto) 2.0, Baso % (Auto) 0.2, Neut # (Auto) 9.6 H, Lymph # (Auto) 2.0, Cuming # (Auto) 0.8, Eos # (Auto) 0.3, Baso # (Auto) 0.0, Sodium 137, Potassium 3.6, Chloride 108 H, Carbon Dioxide 23, Anion Gap 9.6, BUN 12, Creatinine 0.60, Estimated Creat Clear 136, Estimated GFR 116, Est GFR ( Amer) 140, Glucose 94, Calcium 9.0, Total Bilirubin 0.5, AST 22, ALT 14, Alkaline Phosphatase 110, Total Protein 7.4, Albumin 3.8, Globulin 3.6 H, Albumin/Globulin Ratio 1.1, Lipase 94 04/20/25 19:30 04/20/25 19:30 Orders (Tests/Meds): ED MEDICATIONS Discontinued Medications Generic Name Dose Route Start Last Admin Trade Name Freq PRN Reason Stop Dose Admin Acetaminophen 1,000 mg 04/20/25 18:35 04/20/25 19:55 Acetaminophen 500mg Tab PO 04/20/25 18:36 1,000 mg ONCE ONE Administration Ceftriaxone Sodium 1 gm/ 50 mls @ 100 mls/hr 04/20/25 19:25 04/20/25 19:56 Sodium Chloride IV 04/20/25 19:54 100 mls/hr ONCE ONE Administration Metronidazole 500 mg in 100 mls @ 100 mls/hr 04/20/25 19:24 04/20/25 20:20 Flagyl 500mg/100ml Ivpb IV 04/20/25 20:23 100 mls/hr ONCE ONE Administration Promethazine HCl 12.5 mg 04/20/25 18:35 04/20/25 19:56 Promethazine Hcl 25mg/Ml 1ml Vial IV 04/20/25 18:36 12.5 mg ONCE ONE Administration Sodium Chloride 25 ml 04/20/25 18:35 04/20/25 19:57 Sodium Chloride 0.9% 25ml Bag IV 04/20/25 18:36 25 ml ONCE ONE Administration ORDERS Category Date Time Status POCUS Point of Care (ER Only) Stat Exams 04/20/25 18:55 Completed CBC w/Auto Diff [Complete Blood Count Auto Diff] Stat Lab 04/20/25 19:30 Completed CMP [Comprehensive Metabolic Panel] Stat Lab 04/20/25 19:30 Completed Lipase Stat Lab 04/20/25 19:30 Completed UA [Urinalysis and Microscopic] Stat Lab 04/20/25 18:53 Completed Urine Culture Stat Micro 04/20/25 18:53 Received Medical Decision Narrative: In summary patient is a 34-year-old female with past medical history described above who presents emergency department for evaluation of epigastric pain in the setting of 24 weeks and 5 days of . Patient is hemodynamically stable nontoxic-appearing upon arrival, afebrile, appearing uncomfortable, tender in the right upper quadrant, afebrile. Differential diagnosis includes symptomatic cholelithiasis cholecystitis choledocholithiasis, among others. Workup will be conducted with hematologic labs I will have the ultrasound that was conducted this morning pushed for stat read, will conduct my own [id number] ultrasound, monitoring will be conducted. heart rate 151 at bedside. Initial inventions include Tylenol and Phenergan. Patient's ultrasound from earlier today cholelithiasis without evidence of acute cholecystitis. [id number] ultrasound performed by me patient has a sonographic Mullins sign, multiple gallstones in the gallbladder with thickened gallbladder wall without pericholecystic fluid. Gallbladder wall measures between 3 and 4.6 mm. I discussed the case with [facility] Dr. Ramos who graciously except the patient for continued evaluation at this time. Patient has symptomatic cholelithiasis versus very early cholecystitis and will benefit from higher level of care as we do not have the appropriate resources to take care of her at this institution. Procedure: Procedure performed was [id number] ultrasound. Procedure performed by Bairon Rios. Curvilinear probe was passed over the right upper quadrant, positive sonographic Mullins sign. There is a gallbladder that has borderline thickened rowell without pericholecystic fluid with innumerable gallstones with posterior acoustic shadowing. Gallbladder wall measures between 3 and 4.6 mm maximum thickness superior aspect patient tolerated the procedure well there were no immediate complications. Critical Care Critical Care Time Critical Care Time: No
--- OUTSIDE RECORDS SUMMARY | 2025-04-20 18:44 | XMS_ITS | Clinical Summary ---
Author Organization [facility] Address [address] [place] [address] Care Team Providers Care Multifocal Button Grinder Name Role Phone Provider, No Known [...] Insurance [employer] [place] Care Teams Multifocal Button Grinder Relationship Specialty Start Date End Date Provider, [place] [address] PCP - General 10/02/22
[2025-04-20 19:02] LABS: Microscopic, Urine URINE MICROSCOPIC (MICROSCOPIC)
[2025-04-20 19:05] LABS: Bilirubin,Urine Negative (Negative); Color,Urine YELLOW (Yellow); Glucose,Urine (UA) Negative (Negative); Ketones,Urine Negative (Negative); Leukocyte Esterase,Urine Negative (Negative); PH,Urine 5.5 (5.0-8.5); Protein,Urine Negative (Negative); Specific Gravity, Urine >= 1.030 (1.005-1.030); Urobilinogen,Urine 0.2 EU/dl (0.2)
[2025-04-20 19:41] LABS: Hematocrit 38.7 % (37.0-47.0); Hemoglobin 13.1 g/dL (12.2-16.2); Immature Granulocytes % 0.6 %; Mean Corpuscular HGB Conc 33.9 g/dL (31.8-35.4); Mean Corpuscular Hemoglobin 29.7 pg (27.0-31.2); Mean Corpuscular Volume 87.8 fl (81-99); Nucleated Red Blood Cells % 0 %; Platelet Count 195 K/mm3 (142-424); Red Blood Count 4.41 M/mm3 (4.20-5.40); Red Cell Distribution Width-SD 43.6 fL; White Blood Count 12.8 K/mm3 (4.8-10.8)
[2025-04-20 19:43] LABS: Bacteria,Urine 2+ /lpf; Mucus,Urine 2+ /lpf
[2025-04-20 19:53] LABS: Alanine Aminotransferase 14 U/L (12-78); Albumin Level 3.8 g/dl (3.5-5.0); Albumin/Globulin Ratio 1.1 (1.1-1.8); Alkaline Phosphatase 110 U/L (38-126); Anion Gap 9.6 mEq/L (5-15); Aspartate Amino Transferase 22 U/L (14-36); Bilirubin,Total 0.5 mg/dl (0.2-1.3); Blood Urea Nitrogen 12 mg/dl (7-17); Calcium 9.0 mg/dl (8.4-10.2); Carbon Dioxide 23 mmol/L (22.0-30.0); Chloride 108 mmol/L (98-107); Creatinine Clearance Estimated 136 mL/min (50-200); Creatinine,Serum 0.60 mg/dl (0.52-1.04); Estimated Glomerular Filt Rate 116 ml/min (>60); GFR (African American) 140 ML/MIN (>60); Globulin 3.6 g/dL (1.3-3.2); Glucose 94 mg/dl (74-100); Lipase 94 U/L (23-300); Potassium 3.6 mmoL/L (3.5-5.1); Sodium 137 mmol/L (136-145); Total Protein,Serum 7.4 g/dl (6.3-8.2)
[2025-04-20] MEDS: ACETAMINOPHEN 500MG TAB 1000 MG PO (19:55)
[2025-04-20] MEDS: CEFTRIAXONE 1 GM 1 GM in 0.9 % SODIUM CHLORIDE 50 ML IV (19:56)
[2025-04-20] MEDS: PROMETHAZINE HCL 25MG/ML 1ML VIAL 12.5 MG IV (19:56)
[2025-04-20] MEDS: SODIUM CHLORIDE 0.9% 25ML BAG 25 ML IV (19:57)
--- NOTE | 2025-04-20 20:08 | PC.NURSE ---
F[facility] 151
[2025-04-20] MEDS: METRONIDAZ/SOD CHL 500 MG/100 ML PIGGYBACK 100 MG IV (20:20)
[2025-04-20 22:11] VITALS: BP 128/77; PULSE 89; RESP 20; TEMP 36.7; O2SAT 99
== END 2025-04-20 22:12 | disposition home or self-care (01) ==
PROVIDERS: Emergency Provider Emergency Medicine; PCP Family Medicine
DX: O26.892 Other specified pregnancy related conditions, second trimester (principal); R10.13 Epigastric pain; K80.20 Calculus of gallbladder without cholecystitis without obstruction; O99.332 Smoking (tobacco) complicating pregnancy, second trimester; F17.210 Nicotine dependence, cigarettes, uncomplicated; Z3A.24 24 weeks gestation of pregnancy
CPT/HCPCS: 80053; 81001; 83690; 85025; 87086; 96365; 96374; 96375; 99285; J0696; J1836; J2550